=== PATIENT | male | born 1955 | race Caucasian/White ===

== ENCOUNTER → 2023-02-13 | Outpatient (CLI) | payer MEDICARE, SELFPAY ==
--- NOTE | 2023-02-13 07:33 | US_ITS ---
STUDY: ABDOMINAL ULTRASOUND - RIGHT UPPER QUADRANT REASON FOR VISIT: Male, 67 years old RUQ PAIN TECHNIQUE: Ultrasound evaluation of the right upper quadrant was performed with real-time and static billingsley-scale imaging. TECHNICAL QUALITY: Adequate. COMPARISON: None. FINDINGS: Liver: The liver measures 14.6 cm. There is increased echogenicity consistent with fatty infiltration. Focal fatty sparing is seen adjacent to the gallbladder fossa. The bile ducts are within normal limits. There is hepatic color flow. The direction of portal flow is hepatopetal. There is no demonstrated mass lesion. Gallbladder: Normal distended gallbladder. The gallbladder wall measures 1.6 mm. There is a negative sonographic Galeano''s sign. There is no pericholecystic fluid. There are no gallstones. Sludge is seen within the gallbladder lumen. Common Bile Duct (C.B.D.): The common bile duct measures 3.6 mm. Pancreas: Normal size of the head, body and tail of the pancreas. There is increased echogenicity of the pancreas. There is no demonstrated pancreatic mass or cyst. Right Kidney: Normal size of the right kidney. The right kidney measures 11.4 cm x 6.7 cm x 6.3 cm. Normal renal cortex. The right cortex measures 1.5 cm. There is no demonstrated renal mass or cyst. 2 right renal cysts are seen. The larger measures 1.4 cm x 1.5 cm x 1.5 cm in the upper pole. US/Abdomen Limited IMPRESSION: Fatty infiltration of the liver. Findings suggestive of 2 focal areas of focal fatty sparing in the region of the gallbladder fossa. There are 2 small right renal cysts. Electronically Signed: Enzo Collins MD at 14:17 EDT ,
[2023-02-13 08:24] LABS: Absolute Lymphocyte Count 1.07 X10^3/uL (0.83-4.51); Absolute Neutrophil Count 3.2 X10^3/uL (2.0-7.7); Basophil# 0.02 X10^3/uL; Basophil% 0.4 % (0-1); Eosinophil# 0.08 X10^3/uL; Eosinophils% 1.6 % (0-5); Hematocrit 43.7 % (40-54); Hemoglobin 13.8 g/dL (13.0-16.5); Lymphocyte # 1.07 X10^3/ul (0.83-4.51); Lymphocyte % 21.5 % (19-41); Mean Corp Hgb Conc 31.6 g/dL (32-36); Mean Corpuscular Hgb 29.7 pg (27.0-32.0); Mean Platelet Vol. 11.7 fl (6.2-12.0); Monocyte# 0.57 X10^3/uL; Monocyte% 11.5 % (0-10); NRBC Flagged by Analyzer 0 % (0-5); Neutrophil # 3.21 X10^3/uL (2.7-7.7); Neutrophil % 64.6 % (47-70); Platelet Count 216 K/mm3 (150-450); RBC Distribution Width CV 13.2 % (11.6-14.6); RBC Distribution Width SD 45.6 fl (35.1-43.9); Red Blood Count 4.65 M/mm3 (4.6-6.2)
[2023-02-13 08:58] LABS: ALB/GLOB Ratio 0.7 RATIO (0.9-2.4); AST(SGOT) 23 U/L (15-37); Alanine Aminotransfer ALT/SGPT 37 U/L (16-61); Albumin, Serum 3.3 g/dL (3.2-5.0); Alkaline Phosphatase 80 U/L (45-117); Anion Gap 3 (5-15); BUN 11 mg/dL (7-18); BUN/Creat Ratio 11.7 RATIO (10-20); Calcium,Total 9.4 mg/dL (8.5-10.1); Chloride 106 mmol/L (98-107); Creatinine, Serum 0.94 mg/dL (0.70-1.30); EST Glomerular Filtration Rate 86 mL/min (>60); Est Glom Filt Rate - Afr Amer 104 mL/min (>60); Globulin 4.9 g/dL (2.2-4.2); Glucose 97 mg/dL (74-106); Potassium 3.9 mmol/L (3.5-5.1); Protein, Total 8.2 g/dL (6.4-8.2); Sodium Level 138 mmol/L (136-145)
[2023-02-13 08:59] LABS: Hemoglobin A1c 5.8 % (3.8-5.6)
== END | disposition home or self-care (01) ==
PROVIDERS: PCP Physician Assistant Medical; Referring Provider Physician Assistant Medical; Visit Provider Physician Assistant Medical
DX: R10.11 Right upper quadrant pain (principal); F10.21 Alcohol dependence, in remission; E11.65 Type 2 diabetes mellitus with hyperglycemia
CPT/HCPCS: 36415; 76705; 80053; 83036; 85025

== ENCOUNTER → 2023-05-08 | Outpatient (CLI) | payer MEDICARE, SELFPAY ==
--- NOTE | 2023-05-08 13:09 | RAD_ITS ---
INDICATION: SOB/PLEURAL EFFUSION -- right decub EXAMINATION/TECHNIQUE: X-RAY - XR Chest 1 View COMPARISON: Previous of the same day FINDINGS: Right decubitus view of the chest was obtained. Small right pleural effusion is seen. No left pleural effusion. RAD/Special CXR (Obl/Decub/A/L) IMPRESSION: Small free flowing right pleural effusion. Electronically Signed: Kenny Hahn MD at 9:08 EST ,
--- NOTE | 2023-05-08 13:09 | RAD_ITS ---
INDICATION: SOB/PLEURAL EFFUSION EXAMINATION/TECHNIQUE: X-RAY - XR Chest 2 Views COMPARISON: No relevant prior comparison study available FINDINGS: LINES/DEVICES: None. LUNGS: No consolidation, edema or effusion. No pneumothorax. MEDIASTINUM AND CARDIOVASCULAR STRUCTURES: Normal cardiac silhouette. Slightly prominent right hilum could be exaggerated by rotation. Mild blunting of the right costophrenic angle. BONES AND SOFT TISSUES: No demonstrated acute osseous changes. RAD/Chest PA and Lateral IMPRESSION: 1. Slightly prominent right hilum probably exaggerated by rotation. Follow-up exam might be helpful. 2. Trace of right pleural effusion. Electronically Signed: Kenny Hahn MD at 9:04 EST ,
--- NOTE | 2023-05-08 13:21 | RAD_ITS ---
INDICATION: sob, pleural effusion -- left decub EXAMINATION/TECHNIQUE: X-RAY - XR Chest 1 View COMPARISON: Previous of the same date done earlier. FINDINGS: No left pleural effusion is seen. RAD/Special CXR (Obl/Decub/A/L) IMPRESSION: No left pleural effusion is seen. Electronically Signed: Kenny Hahn MD at 9:09 EST ,
== END | disposition home or self-care (01) ==
LOC: MTRAD 13:07
PROVIDERS: PCP Physician Assistant Medical; Referring Provider Internal Medicine Pulmonary Disease; Visit Provider Internal Medicine Pulmonary Disease
DX: R06.02 Shortness of breath (principal); J90 Pleural effusion, not elsewhere classified
CPT/HCPCS: 71046

== ENCOUNTER → 2023-05-28 | Outpatient (CLI) | payer MEDICARE, SELFPAY ==
--- NOTE | 2023-05-28 11:14 | US_ITS ---
STUDY: SUPERFICIAL ULTRASOUND - POSSIBLE THORACENTESIS. REASON FOR EXAM: Male, 68 years old. PE TECHNIQUE: A superficial ultrasound was performed with real-time and static billingsley-scale imaging. COMPARISON: None. FINDINGS: Not enough pleural effusion for safe thoracentesis. US/Chest IMPRESSION: Not enough pleural effusion for safe thoracentesis. Electronically Signed: Enzo Collins MD at 15:08 EST ,
== END | disposition home or self-care (01) ==
PROVIDERS: PCP Physician Assistant Medical; Referring Provider Internal Medicine Pulmonary Disease; Visit Provider Internal Medicine Pulmonary Disease
DX: J90 Pleural effusion, not elsewhere classified (principal)
CPT/HCPCS: 76604

== ENCOUNTER → 2023-07-14 | Outpatient (CLI) | payer MEDICARE, SELFPAY ==
--- OUTSIDE RECORDS SUMMARY | 2023-07-14 18:42 | XMS RPT_ITS | CCD ---
Author Name Unknown Address [address] [place] [address] Organization [facility] Care Team Providers Care Principal Associate Name Role Phone JT MYERS (OD) Unavailable Unavailable JT MYERS (OD) Unavailable Unavailable KAY MALAGON Unavailable Unavailable Cristhian Veronique B Unavailable Unavailable Isabel Jones Unavailable Unavailable Negaunee, Veronique Unavailable Unavailable Negaun[place], Veronique B Unavailable Unavailable Unavailable Veronique Morrow PA-C Primary Care Provider Nena Salinas MD Unavailable Cristhian, Ms. Veronique Rosenbaum Referring Unav ailable Cristhian, Ms. Veronique Ilsa Attending Unav ailable Negaunee, Ms. Veronique Ilsa Primary Care Unav ailable Negaunee, Ms. Veronique Ilsa Attending Unav ailable Negaunee, Ms. Veronique Ilsa Primary Care Unav ailable Cristhian, Ms. Veronique Ilsa Referring Unav ailable Negaunee, Ms. Veronique Ilsa Attending Unav ailable [place]un[place], Ms. Veronique Ilsa Primary Care Unav ailable Cristhian, Ms. Veronique Ilsa Attending Unav ailable [place], Ms. Veronique Ilsa Primary Care Unav ailable [place]un[place], Ms. Veronique Ilsa Referring Unav ailable Cristhian, Ms. Veronique Ilsa Attending Unav ailable [place], Ms. Veronique Ilsa Primary Care Unav ailable Negaun[place], Ms. Veronique Ilsa Referring Unav ailable Zak, Dr. Tim Mascorro Attending Dr. Tim Cisneros Admitting Unavailable Ms. Veronique Morrow Primary Care Unav ailable VERONIQUE MORROW Attending Unavailable VERONIQUE MORROW Primary Care Unavailable CRISTHIAN VERONIQUE B Attending Unavailable CRISTHIAN VERONIQUE B Primary Care Unavailable CRISTHIAN VERONIQUE B Attending Unavailable CRISTHIAN VERONIQUE B Primary Care Unavailable HESS JOSE GUADALUPE, DEVON FELICIANO Attending Unava ilable VERONIQUE MORROW B Referring Unavailable CRISTHIAN VERONIQUE B Primary Care Unavailable CRISTHIAN, VERONIQUE B Attending Unavailable CRISTHIAN VERONIQUE B Primary Care Unavailable HESS JOSE GUADALUPE, DEVON FELICIANO Attending Unava ilable VERONIQUE MORROW B Primary Care Unavailable VERONIQUE MORROW B Attending Unavailable CRISTHIAN VERONIQUE B Primary Care Unavailable CRISTHIAN VERONIQUE B Attending Unavailable CRISTHIAN VERONIQUE B Primary Care Unavailable MARVEL SALAS Attending Unavailable VERONIQUE MORROW B Referring Unavailable CRISTHIAN VERONIQUE B Primary Care Unavailable VERONIQUE MORROW B Attending Unavailable CRISTHIAN, VERONIQUE B Primary Care Unavailable CRISTHIAN, VERONIQUE B Attending Unavailable CRISTHIAN VERONIQUE B Primary Care Unavailable VERONIQUE MORROW Primary Care Unavaila MARVEL Meehan Referring Unavailable VERONIQUE MORROW Primary Care Unavaila ble VERONIQUE MORROW Admitting Unavaila ble CRISTHIAN VERONIQUE B Referring Unavailable CRISTHIAN, VERONIQUE B Primary Care Unavailable CRISTHIAN, VERONIQUE B Referring Unavailable CRISTHIAN, VERONIQUE B Primary Care Unavailable HESS JOSE GUADALUPE, DEVON FELICIANO Admitting Unava ilable HESS JOSE GUADALUPE, DEVON FELICIANO Attending Unava ilable CRISTHIAN VERONIQUE B Primary Care Unavailable CRISTHIAN, VERONIQUE B Referring Unavailable CRISTHIAN, VERONIQUE B Primary Care Unavailable Medications Current Medications Medication Drug Class(es) Dates Sig (Normalized) Sig (Original) [id number] 200 actuat albuterol 0.09 mg/actuat metered dose inhaler (13 sources) beta2-Adrenergic Agonist Start: 02-18-2023 End: 02-18-2024 take 2 puff(s) by inhalation every four hours for wheezing albuterol (Ventolin HFA) 90 mcg/actuation inhaler Indications: Acute cough Inhale 2 puffs every 4 hours if needed for wheezing or shortness of breath. 8 g 5 02/18/2023 02/18/2024 Active aspirin 81 mg chewable tablet (11 sources) Platelet Aggregation Inhibitor, Nonsteroidal Anti-inflammatory Drug Start: 03-18-2023 End: 2024 aspirin 81 mg chewable tablet Indications: Atherosclerosis Chew 1 tablet (81 mg) once daily. 30 tablet 11 03/18/2023 2024 Active atorvastatin 40 mg oral tablet (11 sources) HMG-CoA Reductase Inhibitor Start: 03-27-2023 take 1 tablet by mouth once daily atorvastatin (Lipitor) 40 mg tablet Indications: Atherosclerosis Take 1 tablet (40 mg) by mouth once daily. 90 tablet 3 03/27/2023 Active clobetasol propionate 0.0005 mg/mg topical ointment (17 sources) Corticosteroid Start: 05-14-2017 clobetasol (Temovate) 0.05 % ointment 1 Application 0 05/14/2017 Active Completed/Discontinued Medications Medication Drug Class(es) Dates Sig (Normalized) Sig (Original) amoxicillin 500 mg oral tablet (3 sources) Penicillin-class Antibacterial Start: 06-17-2019 End: 07-29-2022 take 1 tablet by mouth three times daily Amoxicillin 500 MG Oral Tablet TAKE 1 TABLET 3 times daily Quantity: 30 Refills: 0 Ordered: 17-Jun-2019 Veronique Morrow PA-C Start : 17-Jun-2019 End : 29-Jul-2022 Complete 120 actuat formoterol fumarate 0.0048 mg/actuat / glycopyrrolate 0.009 mg/actuat metered dose inhaler (5 sources) beta2-Adrenergic Agonist Start: 03-27-2023 End: 04-07-2023 glycopyrrolate-fo rmoteroL (Bevespi Aerosphere) 9-4.8 mcg HFA aerosol inhaler Indications: SOB (shortness of breath) Inhale 2 puffs 2 times a day. 10.7 g 1 03/27/2023 04/07/2023 Discontinued (Cost of medication) iohexol (OMNIPaque) 12 mg iodine/mL oral contrast 500 mL (2 sources) Start: 03-31-2023 End: 03-31-2023 iohexol (OMNIPaque) 12 mg iodine/mL oral contrast 500 mL iohexol (OMNIPaque) 350 mg iodine/mL solution 90 mL (4 sources) Start: 04-08-2023 End: 04-08-2023 iohexol (OMNIPaque) 350 mg iodine/mL solution 90 mL Problems Active Problems Problem Classification Problem Date Documented Date Episodic/Chronic Alcohol-related disorders (20 sources) Alcohol abuse; Translations: [H/O: alcoholism] Onset: 02-03-2023 02-03-2023 Chronic Chronic obstructive pulmonary disease and bronchiectasis (20 sources) Centriacinar emphysema; Translations: [Centrilobular emphysema] Onset: 03-27-2023 03-27-2023 Chronic Coronary atherosclerosis and other heart disease (2 sources) Atherosclerotic heart disease of [place] coronary artery without angina pectoris; Translations: [Atherosclerotic heart disease of [place] coronary artery without angina pectoris] Onset: 03-27-2023 Chronic Diabetes mellitus with complications (20 sources) Hyperglycemia due to type 2 diabetes mellitus; Translations: [Diabetes mellitus without mention of complication, type II or unspecified type, not stated as uncontrolled] Onset: 08-06-2022 09-17-2022 Chronic Diabetes mellitus without complication (9 sources) Type 2 diabetes mellitus; Translations: [Type 2 diabetes mellitus with hyperglycemia] 09-17-2022 Chronic Disorders of lipid metabolism (20 sources) Hyperlipidemia; Translations: [Mixed hyperlipidemia] Onset: 08-06-2022 09-17-2022 Chronic Diverticulosis and diverticulitis (20 sources) Diverticular disease; Translations: [Diverticulosis of colon (without mention of hemorrhage)] Onset: 08-06-2022 08-06-2022 Chronic Essential hypertension (5 sources) Essential hypertension; Translations: [Hypertensive disorder] Onset: 08-06-2022 Chronic Genitourinary symptoms and ill-defined conditions (5 sources) Microscopic hematuria; Translations: [Microscopic hematuria] Episodic Hypertension with complications and secondary hypertension (5 sources) Hypertension secondary to endocrine disorders; 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] Onset: 08-06-2022 Chronic Nonspecific chest pain (1 source) Other chest pain; Translations: [Other chest pain] Onset: 02-21-2023 Episodic Other and unspecified benign neoplasm (3 sources) Polyp of colon; Translations: [Polyp of colon] 09-17-2022 Episodic Other and unspecified benign neoplasm (10 sources) History of polyp of colon; Translations: [Personal history of colonic polyps] Resolved: 06-16-2019 09-05-2022 Episodic Other and unspecified benign neoplasm (1 source) Benign neoplasm of descending colon; Translations: [Benign neoplasm of descending colon] 09-17-2022 Episodic Other ear and sense organ disorders (17 sources) Decreased hearing ; Translations: [Unspecified hearing loss, bilateral] Onset: 09-17-2022 09-17-2022 Chronic Other inflammatory condition of skin (20 sources) Psoriasis; Translations: [Other psoriasis] Onset: 08-06-2022 08-06-2022 Chronic Other inflammatory condition of skin (20 sources) Rosacea; Translations: [Rosacea] Onset: 08-06-2022 08-06-2022 Chronic Other liver diseases (20 sources) Steatosis of liver; Translations: [Fatty (change of) liver, not elsewhere classified] Onset: 02-18-2023 02-18-2023 Chronic Other liver diseases (2 sources) Liver disease, unspecified; Translations: [Liver disease, unspecified] Onset: 05-30-2023 Chronic Other liver diseases (2 sources) Fatty (change of) liver, not elsewhere classified; Translations: [Fatty (change of) liver, not elsewhere classified] Onset: 02-19-2023 Chronic Other lower respiratory disease (1 source) Cough; Translations: [Acute cough] 02-18-2023 Episodic Other lower respiratory disease (3 sources) Dyspnea; Translations: [Shortness of breath] 03-31-2023 Episodic Other lower respiratory disease (11 sources) Nodule of lung; Translations: [Solitary pulmonary nodule] Onset: 04-15-2023 04-14-2023 Episodic Other lower respiratory disease (2 sources) Solitary pulmonary nodule; Translations: [Solitary pulmonary nodule] Onset: 04-15-2023 Episodic Other male genital disorders (3 sources) Impotence; Translations: [Erectile dysfunction] Chronic Other male genital disorders (20 sources) Male erectile dysfunction, unspecified; Translations: [Erectile dysfunction] Onset: 08-06-2022 08-06-2022 Chronic Other nervous system disorders (20 sources) Neuropathy; Translations: [Mononeuritis of unspecified site] Onset: 09-17-2022 09-17-2022 Chronic Other nervous system disorders (1 source) Other chronic pain; Translations: [Other chronic pain] Onset: 08-05-2022 Chronic Other nervous system disorders (2 sources) Polyneuropathy, unspecified; Translations: [Polyneuropathy, unspecified] Onset: 09-03-2022 Chronic Other non-traumatic joint disorders (2 sources) Knee pain; Translations: [Pain in right knee] Onset: 09-17-2022 09-17-2022 Episodic Other nutritional; endocrine; and metabolic disorders (4 sources) Obesity; Translations: [Other obesity due to excess calories] Onset: 09-17-2022 09-17-2022 Chronic Other nutritional; endocrine; and metabolic disorders (2 sources) Other obesity due to excess calories; Translations: [Other obesity due to excess calories] Onset: 02-03-2023 Chronic Other nutritional; endocrine; and metabolic disorders (2 sources) Body mass index (BMI) 30.0-30.9, adult; Translations: [Body mass index (BMI) 30.0-30.9, adult] Onset: 02-03-2023 Chronic Peripheral and visceral atherosclerosis (16 sources) Arteriosclerotic vascular disease; Translations: [Unspecified atherosclerosis] Onset: 03-18-2023 03-18-2023 Chronic Unclassified (3 sources) Acute cough; Translations: [Acute cough] Onset: 02-18-2023 Unclassified (1 source) Cough, unspecified; Translations: [Cough, unspecified] Onset: 02-21-2023 Past or Other Problems Problem Classification Problem Date Documented Date Episodic/Chronic Abdominal pain (20 sources) Right upper quadrant pain; Translations: [Right upper quadrant pain] Onset: 02-03-2023 02-03-2023 Episodic Allergic reactions (15 sources) Inflammatory dermatosis; Translations: [Dermatitis, unspecified] Onset: 06-11-2017 Resolved: 02-03-2023 02-03-2023 Episodic Biliary tract disease (13 sources) Biliary sludge; Translations: [Other specified diseases of gallbladder] Onset: 02-18-2023 02-18-2023 Episodic Disorders of teeth and jaw (20 sources) Dental caries; Translations: [Dental caries, unspecified] Onset: 08-06-2022 Resolved: 02-03-2023 08-06-2022 Episodic Diverticulosis and diverticulitis (1 source) Diverticulosis of colon; Translations: [Diverticular disease of colon] Malaise and fatigue (6 sources) Malaise and fatigue; Translations: [Other malaise and fatigue] Onset: 09-03-2022 Episodic Other and unspecified benign neoplasm (4 sources) Personal history of colonic polyps; Translations: [Personal history of colonic polyps] Onset: 09-05-2022 Episodic Other and unspecified benign neoplasm (1 source) Benign neoplasm of descending colon; Translations: [Benign neoplasm of descending colon] Onset: 09-05-2022 Episodic Other and unspecified benign neoplasm (1 source) Polyp of colon; Translations: [Polyp of colon] Onset: 09-05-2022 Episodic Other lower respiratory disease (6 sources) Shortness of breath; Translations: [Shortness of breath] Onset: 03-31-2023 Episodic Other non-traumatic joint disorders (20 sources) Pain in right knee; Translations: [Chronic pain of right knee] Onset: 08-05-2022 09-17-2022 Episodic Other nutritional; endocrine; and metabolic disorders (20 sources) Body mass index 25-29 - overweight; Translations: [Overweight] Onset: 09-17-2022 02-18-2023 Episodic Other screening for suspected conditions (not mental disorders or infectious disease) (17 sources) Patient encounter status; Translations: [Screening for malignant neoplasms of prostate] Onset: 12-31-2018 09-17-2022 Episodic Results Test Name Value Interpretation Reference Range Facil ity Vital Signs Date Time Vital Sign Value Performing Clinician Facility 04-28-2023 11:01-0500 Body height 167.6 cm Veronique Morrow PA-C Work Phone: [facility] 04-28-2023 11:01-0500 Body mass index (BMI) [Ratio] 29.21 kg/m2 Veronique Morrow PA-C Work Phone: [facility] 04-28-2023 11:01-0500 Body weight 82.1 kg eVronique Morrow PA-C Work Phone: [facility] 04-28-2023 11:01-0500 Diastolic blood pressure 69 mm[Hg] Veroniquejustin Zamudioall PA-C Work Phone: [facility] 04-28-2023 11:01-0500 Heart rate 61 /min Veronique Cristhian PA-C Work Phone: [facility] 04-28-2023 11:01-0500 SaO2% (BldA) [Mass fraction] 95 % Veroniquejustin Zamudioall PA-C Work Phone: [facility] 04-28-2023 11:01-0500 Systolic blood pressure 122 mm[Hg] Veroniquejustin Zamudioall PA-C Work Phone: [facility] 04-16-2023 10:20-0500 Body height 167.6 cm Veronique Cristhian PA-C Work Phone: [facility] 04-16-2023 10:20-0500 Body mass index (BMI) [Ratio] 28.89 kg/m2 Veroniquejustin Zamudioall PA-C Work Phone: [facility] 04-16-2023 10:20-0500 Body weight 81.19 kg Veronique Zamudioall PA-C Work Phone: [facility] 04-16-2023 10:20-0500 Diastolic blood pressure 72 mm[Hg] Veroniquejustin RendonNegaunee PA-C Work Phone: [facility] 04-16-2023 10:20-0500 Heart rate 61 /min Veroniquejustin Zamudioall PA-C Work Phone: [facility] 04-16-2023 10:20-0500 Systolic blood pressure 123 mm[Hg] Veronique Negaunee PA-C Work Phone: [facility] 04-15-2023 08:01-0500 Body mass index (BMI) [Ratio] 28.83 kg/m2 Marvel Salas DO Work Phone: [facility] 04-15-2023 08:01-0500 Body temperature 97.11 [degF] Marvel Salas DO Work Phone: [facility] 04-15-2023 08:01-0500 Body weight 81.01 kg Marvel Piasecki DO Work Phone: [facility] 04-15-2023 08:01-0500 Diastolic blood pressure 76 mm[Hg] Marvel Piasecki DO Work Phone: [facility] 04-15-2023 08:01-0500 Heart rate 57 /min Marvel Piasecki DO Work Phone: [facility] 04-15-2023 08:01-0500 SaO2% (BldA) [Mass fraction] 93 % Marvel Piasecki DO Work Phone: [facility] 04-15-2023 08:01-0500 Systolic blood pressure 124 mm[Hg] Marvel Piasecki DO Work Phone: [facility] 04-14-2023 13:43-0500 Body height 167.6 cm Veroniquejustin Zamudioall PA-C Work Phone: [facility] 04-14-2023 13:43-0500 Body mass index (BMI) [Ratio] 29.54 kg/m2 Veronique Negaunee PA-C Work Phone: [facility] 04-14-2023 13:43-0500 Body weight 83.01 kg Veroniquejustin Zamudioall PA-C Work Phone: [facility] 04-14-2023 13:43-0500 Diastolic blood pressure 71 mm[Hg] Veroniquejustin RendonNegaunee PA-C Work Phone: [facility] 04-14-2023 13:43-0500 Heart rate 75 /min Veronique Negaunee PA-C Work Phone: [facility] 04-14-2023 13:43-0500 Systolic blood pressure 119 mm[Hg] Veroniquejustin Zamudioall PA-C Work Phone: [facility] 04-03-2023 09:52-0400 Body height 167.6 cm Veronique Negaunee PA-C Work Phone: [facility] 04-03-2023 09:52-0400 Body mass index (BMI) [Ratio] 29.38 kg/m2 Veronique Negaunee PA-C Work Phone: [facility] 04-03-2023 09:52-0400 Body weight 82.56 kg Veronique Negaunee PA-C Work Phone: [facility] 04-03-2023 09:52-0400 Diastolic blood pressure 77 mm[Hg] Veronique Negaunee PA-C Work Phone: [facility] 04-03-2023 09:52-0400 Heart rate 52 /min Veronique Cristhian PA-C Work Phone: [facility] 04-03-2023 09:52-0400 Systolic blood pressure 134 mm[Hg] Veronique Negaunee PA-C Work Phone: [facility] 03-04-2023 08:52-0400 Body height 167.6 cm Veronique Cristhian PA-C Work Phone: [facility] 03-04-2023 08:52-0400 Body mass index (BMI) [Ratio] 29.54 kg/m2 Veronique Negaunee PA-C Work Phone: [facility] 03-04-2023 08:52-0400 Body weight 83.01 kg Veronique Negaunee PA-C Work Phone: [facility] 03-04-2023 08:52-0400 Diastolic blood pressure 73 mm[Hg] Veronique Negaunee PA-C Work Phone: [facility] 03-04-2023 08:52-0400 Heart rate 61 /min Veronique Negaunee PA-C Work Phone: [facility] 03-04-2023 08:52-0400 Systolic blood pressure 126 mm[Hg] Veronique Cristhian PA-C Work Phone: [facility] 02-18-2023 15:06-0400 Body height 167.6 cm Veronique Cristhian PA-C Work Phone: [facility] 02-18-2023 15:06-0400 Body mass index (BMI) [Ratio] 29.86 kg/m2 Veronique Cristhian PA-C Work Phone: [facility] 02-18-2023 15:06-0400 Body weight 83.92 kg Veronique Cristhian PA-C Work Phone: [facility] 02-18-2023 15:06-0400 Diastolic blood pressure 80 mm[Hg] Veronique Negaunee PA-C Work Phone: [facility] 02-18-2023 15:06-0400 Heart rate 72 /min Veronique Cristhian PA-C Work Phone: [facility] 02-18-2023 15:06-0400 Systolic blood pressure 140 mm[Hg] Veronique Negaunee PA-C Work Phone: [facility] 02-03-2023 12:29-0400 Body height 167.6 cm Veronique Negaunee PA-C Work Phone: [facility] 02-03-2023 12:29-0400 Body mass index (BMI) [Ratio] 30.67 kg/m2 Veronique Cristhian PA-C Work Phone: [facility] 02-03-2023 12:29-0400 Body weight 86.18 kg Veronique Cristhian PA-C Work Phone: [facility] 02-03-2023 12:29-0400 Diastolic blood pressure 83 mm[Hg] Veronique Cristhian PA-C Work Phone: [facility] 02-03-2023 12:29-0400 Heart rate 71 /min Veronique Cristhian PA-C Work Phone: [facility] 02-03-2023 12:29-0400 Systolic blood pressure 143 mm[Hg] Veroniquejustin Zamudioall PA-C Work Phone: [facility] 09-17-2022 10:41-0400 Body height 167.6 cm Veroniquejustin Zamudioall PA-C Work Phone: [facility] 09-17-2022 10:41-0400 Body mass index (BMI) [Ratio] 33.57 kg/m2 Veronique Cristhian PA-C Work Phone: [facility] 09-17-2022 10:41-0400 Body weight 94.35 kg Veronique Cristhian PA-C Work Phone: [facility] 09-17-2022 10:41-0400 Diastolic blood pressure 80 mm[Hg] Veronique Cristhian PA-C Work Phone: [facility] 09-17-2022 10:41-0400 Heart rate 72 /min Veronique Negaunee PA-C Work Phone: [facility] 09-17-2022 10:41-0400 SaO2% (BldA) [Mass fraction] 96 % Veronique Negaunee PA-C Work Phone: [facility] 09-17-2022 10:41-0400 Systolic blood pressure 136 mm[Hg] Veronique Negaunee PA-C Work Phone: [facility] 09-02-2022 15:06-0400 Body height 167.4 cm Tim Crespo MD Work Phone: [facility] 09-02-2022 15:06-0400 Body mass index (BMI) [Ratio] 32.94 kg/m2 Tim Crespo MD Work Phone: [facility] 09-02-2022 15:06-0400 Body weight 92.3 kg Tim Crespo MD Work Phone: [facility] 06-17-2019 12:50-0500 BMI (Body Mass Index) 32.28 kg/m2 Veronique Morrow [facility] Work Phone: 06-17-2019 12:50-0500 Body Temperature 97.6 [degF] Veronique Morrow [facility] Work Phone: 06-17-2019 12:50-0500 Body weight 90.72 kg Veronique Morrow [facility] Work Phone: 06-17-2019 12:50-0500 BP Diastolic 86 mm[Hg] Veronique Morrow [facility] Work Phone: 06-17-2019 12:50-0500 BP Systolic 124 mm[Hg] Veroniquejustin Morrow [facility] Work Phone: 06-17-2019 12:50-0500 BSA (Body Surface Area) 2 m2 Veronique Morrow [facility] Work Phone: 06-17-2019 12:50-0500 Height 167.64 cm Veroniquejustin Morrow [facility] Work Phone: 06-17-2019 12:50-0500 Pulse (Heart Rate) 64 /min Veronique Morrow [facility] Work Phone: Encounters Encounter Date Encounter Type Care Provider Facility Start: 05-30-2023 End: 06-03-2023 ambulatory VERONIQUE MORROW [facility] Start: 04-28-2023 End: 04-28-2023 ambulatory VERONIQUE Atwood CRISTHIAN [facility] Start: 04-28-2023 End: 04-28-2023 Office outpatient visit 25 minutes Veronique ANDERSONC Work Phone: [facility] Internal [facility] Procedures Date Procedure Procedure Detail Performing Clinician Start: 04-15-2023 AMB REFERRAL TO PULMONOLOGY VERONIQUE MORROW Start: 04-14-2023 Follow-up visit Follow-up VERONIQUE MORROW Start: 04-08-2023 CT CHEST W IV CONTRAST VERONIQUE MORROW Start: 04-08-2023 Ct thorax w/contrast material Veronique Rai Cristhian ABRAHAM Work Phone: Start: 03-31-2023 CT ABDOMEN PELVIS W IV CONTRAST VERONIQUE RENDONENHALL Start: 03-31-2023 PULMONARY FUNCTION TESTING VERONIQUE RENDONENHALL Start: 03-31-2023 Ct abdomen & pelvis w/contrast material Veronique Rai Cristhian ABRAHAM Work Phone: Start: 03-27-2023 DISCHARGE PATIENT DELORIS MORROW Start: 03-27-2023 TELEMETRY MONITORING RA ENRRIQUE MORROW Start: 03-27-2023 CARDIAC CATHETERIZAT ION - CORONARY VERONIQUE CRISTHIAN Start: 03-27-2023 Basic metabolic 2000 panel - Serum or Plasma VERONIQUE CRISTHIAN Start: 03-27-2023 CBC panel - Blood by Automated count VERONIQUE CRISTHIAN Start: 03-27-2023 PLACE IN OUTPATIENT/ HOSPITAL AMBULATORY SURGERY VERONIQUE CRISTHIAN Start: 03-18-2023 ECG 12-LEAD VERONIQUE AYDEE GAGE Start: 03-18-2023 AMB REFERRAL TO CARDIOLOGY VERONIQUE MORROW Start: 09-05-2022 SURGICAL PATHOLOGY RESULTS Tim Crespo MD Work Phone: Start: 09-05-2022 Colonoscopy stoma dx including collj spec spx Veronique Morrow PA-C Work Phone: Start: 09-05-2022 End: 09-05-2022 Colonoscopy Veronique Rai Cristhian Work Phone: Start: 06-17-2019 Comprehensive metabo lic 2000 panel Veronique Morrow Start: 06-17-2019 Hemoglobin glycosylated a1c Veronique Cristhian Start: 06-17-2019 Lipid panel Veronique Aydee vicente Start: 06-14-2019 Lipid 1996 panel - S anahi or Plasma Veronique Morrow PA-C Work Phone: Start: 12-31-2018 [object Object] Plan of Treatment Date Care Activity Detail Author Start: 09-05-2032 Screening for malignant neoplasm of colon [facility] Start: 10-07-2023 End: 10-07-2023 Patient encounter procedure 10/07/2023 10:15 AM EDT Office Visit [facility] [address] [place] [address] Devon Fleming MD [address] [place] [address] [facility] Start: 09-19-2023 Medicare Annual Wellness Visit Medicare Annual Wellness Visit (AWV) [facility] Start: 09-10-2023 End: 09-10-2023 Patient encounter procedure 09/10/2023 10:00 AM EDT Office Visit [facility] [address] [facility] [place] [id number] Veronique Morrow PA-C [address] [facility] [place] [address] [facility] Start: 09-04-2023 Urine screening for protein Diabetes: Urine Protein Screening [facility] Start: 09-02-2023 End: 03-04-2024 CBC W Auto Differential panel - Blood CBC and Auto Differential Lab Routine Hypertension associated with diabetes ([facility]) Type 2 diabetes mellitus with hyperglycemia, without long-term current use of insulin ([facility]) Expected: 09/02/2023 (Approximate), Expires: 03/04/2024 [facility] Work Phone: Immunizations Immunization Date Immunization Notes Care Provider Fa ciliandi 05-29-2022 Fluzone High-Dose Quadrivalent 0.7 ML Intramuscular Suspension Prefilled Syringe Veronique Morrow Work Phone: [facility] Work Phone: 05-29-2022 influenza, seasonal, injectable Veronique Morrow PA-C Work Phone: [facility] Work Phone: 05-29-2022 influenza virus vaccine, unspecified formulation Veronique Morrow PA-C Work Phone: [facility] Work Phone: Payers Date Payer Category Payer Medicare HUMANA MEDICARE HU[employer] GOLD CHOICE [id number] 2022-Present [address] [address] [place] [address] [id number] 2022 Private Health Insurance [employer] ARE HU[employer]NA CHOICECARE HU[employer]NA [id number] 2022-Present [address] [address] [place] [address] [id number] 2022 Private Health Insurance [id number] 1957 Unknown [id number] 2.16.840.1.143537.3.579. 2.356 1957 Unknown [id number] 2.16.840.1.839588.3.579. 2.9 1957 Unknown [id number] 2.16.840.1.669605.3.579. 2.1069 1957 Unknown [id number] 2.16.840.1.582290.3.579. 2.9 1957 Unknown [id number] 2.16.840.1.998056.3.579. 2.9 1957 Unknown [id number] 2.16.840.1.361727.3.579. 2.1069 1957 Unknown [id number] 2.16.840.1.810022.3.579. 2.1244 1957 Unknown [id number] 2.16.840.1.098360.3.579. 2.1243 1957 Unknown [id number] 2.16.840.1.794747.3.579. 2.1244 1957 Unknown [id number] 2.16.840.1.611658.3.579. 2.1243 1957 Unknown [id number] 2.16.840.1.045070.3.579. 2.1244 1957 Unknown [id number] 2.16.840.1.525326.3.579. 2.1244 1957 Unknown [id number] 2.16.840.1.863328.3.579. 2.1244 1957 Unknown [id number] 2.16.840.1.586226.3.579. 2.1244 1957 Unknown [id number] 2.16.840.1.800402.3.579. 2.1244 1957 Unknown [id number] 2.16.840.1.037468.3.579. 2.1244 1957 Unknown [id number] 2.16.840.1.489350.3.579. 2.1244 1957 Unknown [id number] 2.16.840.1.935058.3.579. 2.903 1957 Unknown [id number] 2.16.840.1.154738.3.579. 2.903 1957 Unknown [id number] 2.16.840.1.644006.3.579. 2.1243 1957 Unknown [id number] 2.16.840.1.199112.3.579. 2.1243 1957 Unknown [id number] 2.16.840.1.907879.3.579. 2.1243 1957 Unknown [id number] 2.16.840.1.552700.3.579. 2.1243 Unknown HU[employer]NA GOLD CHOICE Unknown [id number] Social History Date Type Detail Facility Start: 09-17-2022 End: 04-28-2023 Consumes alcohol weekly Consumes alcohol weekly [facility] Work Phone: Start: 09-17-2022 End: 03-04-2023 Tobacco smoking status NHIS Never smoked tobacco [facility] Start: 09-17-2022 End: 03-18-2023 Tobacco use and exposure Smokeless tobacco non-user [facility] Work Phone: Start: 09-17-2022 End: 02-03-2023 Alcohol intake Current drinker of alcohol (finding) [facility] Work Phone: Start: 09-17-2022 End: 04-28-2023 Tobacco use panel [facility] Work Phone: Start: 09-17-2022 Tobacco Comment DOES NOT SMOKE OR USE SMOKELESS BUT CHEWS NICOTINE GUM DAILY. [facility] Work Phone: Start: 09-17-2022 Alcohol [facility] Start: 1955 Sex Assigned At Not on file [facility] Work Phone: Start: 09-07-2022 End: 04-28-2023 Exposure to SARS-CoV-2 (event) Not sure [facility] Start: 02-18-2023 End: 03-27-2023 Alcohol intake Ex-drinker (finding) [facility] Work Phone: Start: 03-04-2023 Tobacco Comment STOPPED TAKING THE NICOTINE GUM [facility] Work Phone: Start: 03-18-2023 End: 04-07-2023 Tobacco smoking status NHIS Ex-smoker [facility] End: 06-09-2012 History of tobacco use Current smoker [facility] Work Phone: End: 06-09-2012 History of tobacco use Cigarette Smoker [facility] Work Phone: Start: 04-07-2023 Tobacco Comment STOPPED TAKING THE NICOTINE GUM 02/2023 [facility] Work Phone: Tobacco smoking status KYIS Tobacco smoking consumption unknown [facility] Work Phone: NEGATED: Highlighted row - - [facility] Work Phone: NEGATED: Highlighted rowStart: RADHAF History of tobacco use Passive smoker [facility] Work Phone: Functional Status Date Assessment Result Facility NEGATED: Highlighted row Functional performance Functional status health issues are not documented Disease [facility] Work Phone: Mental Status Date Assessment Result Facility NEGATED: Highlighted row Cognitive function [Interpretation] Cognitive status health issues are not documented Disease [facility] Work Phone: Clinical Notes 06-09-2019 to 04-28-2023 Veronique Morrow PA-C - 04/28/2023 11:00 AM Emilia Morrow PA-C - 04/16/2023 10:20 AM Tawana Salas DO - 04/15/2023 8:00 AM Emilia Morrow PA-C - 04/14/2023 1:40 PM EST Note Date & Type Note Facility 04-28-2023 History of Presen t illness Narrative Subjective Patient ID: Marvel Denis is a 68 y.o. male who presents for Follow-up (2 WK F/U AFTER SEEING SURGEON; NOT USING STILOTO INHALER PER PULM DOCTOR) HPI Pt was seen 02/03 and complained of RUQ pain x 3 weeks Aggravated with coughing and bending over No change with food Occasionally pain in either shoulders Pt still has gallbladder Concerns with son having cirrhosis Pt states he did quit drinking - was drinking on ave 3-4 day but cont to have the pain He had followed a special diet for his liver but no change in his symptoms Pain is getting worse Follow up visit noted CP - R side and difficult with taking a deep breath in addition to back pain Previously we discussed consider need for scopes, gen surgery referral, referral to hep, and pulm work up He was seen 03/27/23 and we discussed suspicion for pleurisy - started on medrol. [place] was done and referred for PFT and feno- pending. Consider CT chest. Bevespi and anora too exp but changed to stiolto but little relief - made symptoms worsen and symptoms resolved once he stopped the stioloto The steroid helped maybe 50% - declines wanting to repeat dose at this time PFT is indicative of mild obstructive airway dz - FENO - Wnl CT - spiculated nodular opacity R lower lobe . R pleural effusion, reticulonodular opacities -L lower lobe - infectious vs inflammatory - non specific- repeat in 3-6 mo but given these findings and his symptoms I have suggested referral to pulm via telephone call. He did follow with pulm 04/15/23and he has set for repeat CT in 3 mo but denied further work up or changes in the med at this time GI symptoms we discussed scopes, gen surgery referral or hep referral. We ordered CT abd pelvis for further eval given his concerns Fatty liver - again consider need for referral to hep with his history and symptoms Colonoscopy done august 2022- repeat in 3 years US abd done in [place] - no cholelithiasis but slight sludge noted Constipation -on and off - today we discussed metamucil daily and add on colace bid prn He did follow up with gen surgeon - Dr borrego and he feels like this is not gallbaldder related but more of the pulm issues He has recently seen the pulm dr salas and nothing further was done given his symptoms but he questions if maybe there was a misunderstanding of his symptoms. He would like referred to a diff pulm for second opinion. He states the surgeon seems to think he needs thorococentesis and that is the cause of his symptoms. He is currently set for repeat CT to be done jul - october this next year Cardiac calcium score - score of 730 + and referred to cardio. Heart cath done and was started on meds for preventative measures. He is concerned taking statin given the effects on the liver. R tonsillar mass/ lump x years Pt states he previously discussed this with his prior PCP and he said no concerns yet he denies any imaging done on this in the past Quick reference I do not see any imaging on this area in the past 5 years (this system or in our older system allscript which we started in 2018) Size of a marble - pt states no change in over 5 years Denies tenderness Suggest further imaging but would like to put on hold until cardio/pulm / GI issues further eval Med check hyperchol - on meds COPD - albuterol prn CAD - on asprin, statin and BB Diabetic Management DM - previously was managed with diet and ex Eye - has been a few year - advised to schedule a visit Pod - suspect neuropathy and advised to schedule a visit - declines at this time Discussed benefit of ACEI - declines at this time - will work on diet and ex Microalbumin urine - august 2022- WNL Preventative PSA - august 2022 - WNL colonocopy August 2022 tubular adenoma - repeat in 3 years Tobacco - Neg JAN 2023- quit for maybe 12 years - does use nicotine gum [place] - NEG Mar 2023 PHQ2 - Neg MAR 2023 Patient Active Problem List Diagnosis Acne rosacea DD (diverticular disease) Diverticular disease of colon Erectile dysfunction Hypertension associated with diabetes (CMS/HCC) Mixed hyperlipidemia Type 2 diabetes mellitus with hyperglycemia (CMS/HCC) Psoriasis Chronic pain of right knee Neuropathy Overweight (BMI 25.0-29.9) Decreased hearing of both ears Memory impairment History of alcohol dependence (CMS/HCC) Fatty liver Atherosclerosis Centrilobular emphysema (CMS/HCC) Pleural effusion on right Lung nodule Review of Systems Constitutional: Positive for fatigue. Negative for chills and fever. HENT: Negative for congestion, rhinorrhea, sinus pain, sore throat and tinnitus. Eyes: Negative for discharge, redness and visual disturbance. Respiratory: Positive for cough. Negative for chest tightness, shortness of breath and wheezing. Cardiovascular: Positive for chest pain. Negative for palpitations and leg swelling. Gastrointestinal: Positive for abdominal pain. Negative for constipation, diarrhea, nausea and vomiting. Endocrine: Negative for cold intolerance and heat intolerance. Genitourinary: Negative for flank pain, frequency and urgency. Musculoskeletal: Negative for back pain, gait problem and neck pain. Skin: Negative for rash and wound. Neurological: Negative for dizziness, tremors, syncope, numbness and headaches. Hematological: Does not bruise/bleed easily. Psychiatric/Behavioral: Negative for confusion, sleep disturbance and suicidal ideas. Past Medical History: Diagnosis Date Dermatitis, unspecified 06/11/2017 Encounter for screening for malignant neoplasm of prostate Screening PSA (prostate specific antigen) Immunization not carried out Other microscopic hematuria Other microscopic hematuria Personal history of colonic polyps History of colonic polyps Rash and other nonspecific skin eruption 06/11/2017 Right corneal abrasion 03/27/2017 Past Surgical History: Procedure Laterality Date CARDIAC CATHETERIZATION 03/27/2023 GELY SHI CARDIAC CATHETERIZATION N/A 03/27/2023 Procedure: Left Heart Cath; Surgeon: Devon Shi MD; Location: [facility]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; Service: Cardiovascular; Laterality: N/A; OTHER SURGICAL HISTORY 06/16/2019 Hernia repair OTHER SURGICAL HISTORY 06/16/2019 Colonoscopy Family History Problem Relation Name Age of Onset Breast cancer Mother Diabetes Father Other (CHIROSIS OF LIVER) Son Social History Tobacco Use Smoking status: Former Types: Cigarettes Quit date: 2012 Years since quittin.8 Passive exposure: Never Smokeless tobacco: Never Tobacco comments: STOPPED TAKING THE NICOTINE GUM 02/2023 Vaping Use Vaping Use: Never used Substance Use Topics Alcohol use: Not Currently Drug use: Never No Known Allergies Current Outpatient Medications Medication Sig Dispense Refill albuterol (Ventolin HFA) 90 mcg/actuation inhaler Inhale 2 puffs every 4 hours if needed for wheezing or shortness of breath. 8 g 5 aspirin 81 mg chewable tablet Chew 1 tablet (81 mg) once daily. (Patient taking differently: Chew 1 tablet (81 mg) once daily. Holds if taking Aleve) 30 tablet 11 atorvastatin (Lipitor) 40 mg tablet Take 1 tablet (40 mg) by mouth once daily. 90 tablet 3 clobetasol (Temovate) 0.05 % ointment 1 Application metoprolol succinate XL (Toprol-XL) 25 mg 24 hr tablet Take 1 tablet (25 mg) by mouth once daily. Do not crush or chew. 30 tablet 11 multivit-minerals/folic acid (ADULT ONE DAILY MULTIVITAMIN ORAL) Take 1 tablet by mouth once daily. naproxen sodium (Aleve) 220 mg capsule Take 2 capsules by mouth every 12 hours if needed. tiotropium-olodateroL (Stiolto Respimat) 2.5-2.5 mcg/actuation mist inhaler Inhale 2 Inhalations once daily. (Patient not taking: Reported on 04/28/2023) 4 g 5 No current facility-administered medications for this visit. Objective BP 122/69 Pulse 61 Ht 1.676 m (5' 6 ) Wt 82.1 kg (181 lb) SpO2 95% BMI 29.21 kg/m Physical Exam Vitals reviewed. Constitutional: Appearance: Normal appearance. HENT: Head: Normocephalic. Right Ear: External ear normal. Left Ear: External ear normal. Nose: Nose normal. No congestion or rhinorrhea. Mouth/Throat: Mouth: Mucous membranes are moist. Eyes: Extraocular Movements: Extraocular movements intact. Conjunctiva/sclera: Conjunctivae normal. Pupils: Pupils are equal, round, and reactive to light. Cardiovascular: Rate and Rhythm: Normal rate and regular rhythm. Pulses: Normal pulses. Pulmonary: Effort: Pulmonary effort is normal. Breath sounds: Normal breath sounds. Abdominal: General: Bowel sounds are normal. Palpations: Abdomen is soft. Tenderness: There is no abdominal tenderness. There is no right CVA tenderness or left CVA tenderness. Musculoskeletal: General: No tenderness. Normal range of motion. Cervical back: Normal range of motion and neck supple. No tenderness. Skin: General: Skin is warm and dry. Neurological: General: No focal deficit present. Mental Status: He is alert and oriented to person, place, and time. Psychiatric: Mood and Affect: Mood normal. Behavior: Behavior normal. Testing Reviewed CT on file Reviewed notes from his specialists Impression MDM 1) COMPLEXITY: 1 UNDIAGNOSED NEW PROBLEM WITH UNCERTAIN PROGNOSIS 2)DATA: TESTS INTERPRETED AND OR ORDERED, TOOK INDEPENDENT HISTORY OR RECORDS REVIEWED 3)RISK: MODERATE RISK DUE TO NATURE OF MEDICAL CONDITIONS/COMORBIDITY OR MEDICATIONS ORDERED OR SURGICAL OR PROCEDURE REFERRAL, . Reviewed labs and Testing on file Patient to follow diet low in cholesterol, fat, and sodium. Patient is advised to increase Exercise. Patient is recommended to lose weight. Reviewed Meds and discussed common side effects Continue as directed Pleural effusion and possible symptoms secondary to lungs - will refer to diff pulm for second opinion. He questions trying stiolto longer to see if back pain s.e. resolve or we discussed consider trial of diff inhaler- he will first discuss with pulm Again consider hep referral for a second opinion as well Patient is strongly advised to be compliant with recommendations. Return to Clinic sooner if needed. Patient denies further questions/concerns at this time Assessment/Plan Problem List Items Addressed This Visit ICD-10-CM Hypertension associated with diabetes (CMS/HCC) E11.59, I15.2 Type 2 diabetes mellitus with hyperglycemia (CMS/HCC) E11.65 Overweight (BMI 25.0-29.9) E66.3 Fatty liver K76.0 Centrilobular emphysema (CMS/HCC) J43.2 Relevant Orders Referral to Pulmonology Pleural effusion on right - Primary J90 Relevant Orders Referral to Pulmonology Lung nodule R91.1 Relevant Orders Referral to Pulmonology Other Visit Diagnoses Codes SOB (shortness of breath) R06.02 Relevant Orders Referral to Pulmonology RUQ abdominal pain R10.11 Relevant Orders Referral to Pulmonology FU as before Referral to pulm - would like second opinion - dr smith in [place] documented in this encounter [facility] Work Phone: 04-16-2023 History of Presen t illness Narrative Subjective Patient ID: Marvel Denis is a 68 y.o. male who presents for Follow-up (F/U FOR PULM APPT YESTERDAY) HPI Pt was seen 02/03 and complained of RUQ pain x 3 weeks Aggravated with coughing and bending over No change with food Occasionally pain in either shoulders Pt still has gallbladder Concerns with son having cirrhosis Pt states he did quit drinking - was drinking on ave 3-4 day but cont to have the pain He had followed a special diet for his liver but no change in his symptoms Pain is getting worse Follow up visit noted CP - R side and difficult with taking a deep breath in addition to back pain Previously we discussed consider need for scopes, gen surgery referral, referral to hep, and pulm work up He was seen 03/27/23 and we discussed suspicion for pleurisy - started on medrol. [place] was done and referred for PFT and feno- pending. Consider CT chest. Bevespi and anora too exp but changed to stiolto but little relief - made symptoms worsen and symptoms resolved once he stopped the stioloto The steroid helped maybe 50% - declines wanting to repeat dose at this time PFT is indicative of mild obstructive airway dz - FENO - Wnl CT - spiculated nodular opacity R lower lobe . R pleural effusion, reticulonodular opacities -L lower lobe - infectious vs inflammatory - non specific- repeat in 3-6 mo but given these findings and his symptoms I have suggested referral to pulm via telephone call. He did follow with pulm 04/15/23and he has set for repeat CT in 3 mo but denied further work up or changes in the med at this time GI symptoms we discussed scopes, gen surgery referral or hep referral. We ordered CT abd pelvis for further eval given his concerns Fatty liver - again consider need for referral to hep with his history and symptoms Colonoscopy done august 2022- repeat in 3 years [place] abd done in [place] - no cholelithiasis but slight sludge noted Constipation -on and off - today we discussed metamucil daily and add on colace bid prn Cardiac calcium score - score of 730 + and referred to cardio. Heart cath done and was started on meds for preventative measures. He is concerned taking statin given the effects on the liver. R tonsillar mass/ lump x years Pt states he previously discussed this with his prior PCP and he said no concerns yet he denies any imaging done on this in the past Quick reference I do not see any imaging on this area in the past 5 years (this system or in our older system allscript which we started in 2019) Size of a marble - pt states no change in over 5 years Denies tenderness Suggest further imaging but would like to put on hold until cardio/pulm / GI issues further eval Med check hyperchol - on meds COPD - albuterol prn CAD - on asprin, statin and BB Diabetic Management DM - previously was managed with diet and ex Eye - has been a few year - advised to schedule a visit Pod - suspect neuropathy and advised to schedule a visit - declines at this time Discussed benefit of ACEI - declines at this time - will work on diet and ex Microalbumin urine - august 2022- WNL Preventative PSA - august 2022 - WNL colonocopy August 2022 tubular adenoma - repeat in 3 years Tobacco - Neg JAN 2023- quit for maybe 12 years - does use nicotine gum [place] - NEG Mar 2023 PHQ2 - Neg MAR 2023 Constipation Patient Active Problem List Diagnosis Acne rosacea DD (diverticular disease) Diverticular disease of colon Erectile dysfunction Hypertension associated with diabetes (CMS/HCC) Mixed hyperlipidemia Type 2 diabetes mellitus with hyperglycemia (CMS/HCC) Psoriasis Chronic pain of right knee Neuropathy Overweight (BMI 25.0-29.9) Decreased hearing of both ears Memory impairment History of alcohol dependence (CMS/HCC) Fatty liver Atherosclerosis Centrilobular emphysema (CMS/HCC) Pleural effusion on right Lung nodule Review of Systems Constitutional: Positive for fatigue. Negative for chills and fever. HENT: Negative for congestion, rhinorrhea, sinus pain, sore throat and tinnitus. Eyes: Negative for discharge, redness and visual disturbance. Respiratory: Positive for cough and shortness of breath. Negative for chest tightness and wheezing. Cardiovascular: Positive for chest pain. Negative for palpitations and leg swelling. Gastrointestinal: Positive for abdominal pain and constipation. Negative for diarrhea, nausea and vomiting. Endocrine: Negative for cold intolerance and heat intolerance. Genitourinary: Negative for flank pain, frequency and urgency. Musculoskeletal: Positive for back pain. Negative for gait problem and neck pain. Skin: Negative for rash and wound. Neurological: Negative for dizziness, tremors, syncope, numbness and headaches. Hematological: Does not bruise/bleed easily. Psychiatric/Behavioral: Negative for confusion, sleep disturbance and suicidal ideas. Past Medical History: Diagnosis Date Dermatitis, unspecified 06/11/2017 Encounter for screening for malignant neoplasm of prostate Screening PSA (prostate specific antigen) Immunization not carried out Other microscopic hematuria Other microscopic hematuria Personal history of colonic polyps History of colonic polyps Rash and other nonspecific skin eruption 06/11/2017 Right corneal abrasion 03/27/2017 Past Surgical History: Procedure Laterality Date CARDIAC CATHETERIZATION 03/27/2023 GELY SHI CARDIAC CATHETERIZATION N/A 03/27/2023 Procedure: Left Heart Cath; Surgeon: Devon Shi MD; Location: [facility]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; Service: Cardiovascular; Laterality: N/A; OTHER SURGICAL HISTORY 06/16/2019 Hernia repair OTHER SURGICAL HISTORY 06/16/2019 Colonoscopy Family History Problem Relation Name Age of Onset Breast cancer Mother Diabetes Father Other (CHIROSIS OF LIVER) Son Social History Tobacco Use Smoking status: Former Types: Cigarettes Quit date: 2012 Years since quittin.8 Passive exposure: Never Smokeless tobacco: Never Tobacco comments: STOPPED TAKING THE NICOTINE GUM 02/2023 Vaping Use Vaping Use: Never used Substance Use Topics Alcohol use: Not Currently Drug use: Never No Known Allergies Current Outpatient Medications Medication Sig Dispense Refill albuterol (Ventolin HFA) 90 mcg/actuation inhaler Inhale 2 puffs every 4 hours if needed for wheezing or shortness of breath. 8 g 5 aspirin 81 mg chewable tablet Chew 1 tablet (81 mg) once daily. (Patient taking differently: Chew 1 tablet (81 mg) once daily. Holds if taking Aleve) 30 tablet 11 atorvastatin (Lipitor) 40 mg tablet Take 1 tablet (40 mg) by mouth once daily. 90 tablet 3 clobetasol (Temovate) 0.05 % ointment 1 Application metoprolol succinate XL (Toprol-XL) 25 mg 24 hr tablet Take 1 tablet (25 mg) by mouth once daily. Do not crush or chew. 30 tablet 11 multivit-minerals/folic acid (ADULT ONE DAILY MULTIVITAMIN ORAL) Take 1 tablet by mouth once daily. naproxen sodium (Aleve) 220 mg capsule Take 2 capsules by mouth every 12 hours if needed. tiotropium-olodateroL (Stiolto Respimat) 2.5-2.5 mcg/actuation mist inhaler Inhale 2 Inhalations once daily. 4 g 5 No current facility-administered medications for this visit. Objective BP 123/72 Pulse 61 Ht 1.676 m (5' 6 ) Wt 81.2 kg (179 lb) BMI 28.89 kg/m Physical Exam Vitals reviewed. Constitutional: Appearance: Normal appearance. He is obese. HENT: Head: Normocephalic. Right Ear: External ear normal. Left Ear: External ear normal. Nose: Nose normal. No congestion or rhinorrhea. Mouth/Throat: Mouth: Mucous membranes are moist. Eyes: Extraocular Movements: Extraocular movements intact. Conjunctiva/sclera: Conjunctivae normal. Pupils: Pupils are equal, round, and reactive to light. Cardiovascular: Rate and Rhythm: Normal rate and regular rhythm. Pulses: Normal pulses. Pulmonary: Effort: Pulmonary effort is normal. Breath sounds: Normal breath sounds. Abdominal: General: Bowel sounds are normal. Palpations: Abdomen is soft. Tenderness: There is abdominal tenderness. There is no right CVA tenderness or left CVA tenderness. Musculoskeletal: General: No tenderness. Normal range of motion. Cervical back: Normal range of motion and neck supple. No tenderness. Skin: General: Skin is warm and dry. Neurological: General: No focal deficit present. Mental Status: He is alert and oriented to person, place, and time. Psychiatric: Mood and Affect: Mood normal. Behavior: Behavior normal. Testing Reviewed multiple imaging completed and labs over the last few months in addition so notes with specialists Impression MDM 1) COMPLEXITY: 1 UNDIAGNOSED NEW PROBLEM WITH UNCERTAIN PROGNOSIS 2)DATA: TESTS INTERPRETED AND OR ORDERED, TOOK INDEPENDENT HISTORY OR RECORDS REVIEWED 3)RISK: MODERATE RISK DUE TO NATURE OF MEDICAL CONDITIONS/COMORBIDITY OR MEDICATIONS ORDERED OR SURGICAL OR PROCEDURE REFERRAL, . Reviewed labs and Testing on file Patient to follow diet low in cholesterol, fat, and sodium. Patient is advised to increase Exercise. Patient is recommended to lose weight. Reviewed Meds and discussed common side effects Continue as directed RUQ pain - given the work up he has had done, the fixated RUQ pain that worsens with food I suspect is either from gallbladder or liver etiology - given hx and PE will start referral to gen surgeon for further eval even tho the testing is not clear cut this being a gallbladder case Again consider hep referral as discussed I do still question some symptoms secondary to M/S issues with movement /bending and other pain secondary to pulm issues - COPD and pleural effusion - will cont to monitor Pt to cont with his specialists Patient is strongly advised to be compliant with recommendations. Return to Clinic sooner if needed. Patient denies further questions/concerns at this time Assessment/Plan Problem List Items Addressed This Visit ICD-10-CM Diverticular disease of colon K57.30 Hypertension associated with diabetes (CMS/HCC) E11.59, I15.2 Type 2 diabetes mellitus with hyperglycemia (CMS/HCC) E11.65 Overweight (BMI 25.0-29.9) E66.3 Fatty liver K76.0 Centrilobular emphysema (CMS/HCC) J43.2 Pleural effusion on right J90 Lung nodule R91.1 Other Visit Diagnoses Codes Gallbladder sludge - Primary K82.8 Relevant Orders Referral to General Surgery RUQ abdominal pain R10.11 Relevant Orders Referral to General Surgery FU as before in September Pt to call if needed sooner pending referral /visit with surgeon Referral to gen surgeon - dr borrego in [place] - RUQ pain - r/o acalculous cholecystitis - slight gallbladder sludge noted on US in [place] however other imaging - CT/HIDA scan done in [place] did not show concern for the gallbaldder documented in this encounter [facility] Work Phone: 04-15-2023 History of Presen t illness Narrative Subjective Patient ID: Marvel Denis is a 68 y.o. male who presents for Cough, Lung Nodule (Found on CT), and Chest Pain. HPI This is a 68-year-old male who was told that he had a nodule in his lung and that is why he was sent to our office. Patient did have a history of chest pain in the past but that resolved a month ago. He does have a cough in the past also which is not present and was nonproductive before. He denies any problems with his breathing. He denies any fevers or chills he reports a history of a fractured rib on the right side about 15 years ago. He reports that his chest pain resolved with a Medrol Dosepak. His chest x-ray from 02/21/2023 was clear and showed evidence of hyperinflation. His CT scan of the chest from 04/08/2023 did show an irregular infiltrate in the right lower lobe with nonspecific borders in most suggestive of an inflammatory process. There was also evidence of emphysematous changes in the upper lobes and calcified granulomas. There is a small right effusion which appears to be loculated. Review of the patient's chest x-ray from 02/21/2023 did not show these changes. Patient has a history of hypertension. He has had a history of abdominal hernia repair x3 the last one being in 1989 is also had tonsillectomy and adenoidectomy and a heart catheterization done. Family history is positive for father with insulin-dependent diabetes and a mother who from breast cancer. His siblings have no specific medical history. Patient does complain of some discomfort in the right side of the abdomen below the diaphragm which is noticeable when he coughs. Review of Systems Patient reports that he has lost about 30 pounds in weight by purposeful change in his diet. He has been told that he has some underlying fatty liver disease. He does tend to bruise easily and was started on a baby aspirin a day and medication for hyperlipidemia started by his dock associate recently who did his heart cath. Patient denies any significant respiratory problems at this time. Patient is no longer smoker and quit about 10 years ago and had smoked 1 pack/day for 30 years prior to that. He also admits to drinking 2-3 beers per day. Objective Physical Exam Oxygen saturation on room air today was 98 to 99%. HEENT he has a class IV airway and a retrognathic chin. Pulmonary, there is a slight decrease in the breath sounds in the lung bases. Upper lung shay were clear. Cardio, heart sounds were regular rate and rhythm. Abdomen, bowel sounds were heard in all quadrants. Extremities, no pretibial edema cyanosis or clubbing. Skin, no abnormal rashes or skin lesions were noted on the visible portions of his extremities. Psych, the patient is alert and oriented x3. Assessment/Plan Impressions: 1. Small right pleural effusion. 2. Small lung nodules that could also represent some mucoid secretions. 3. Emphysema. Patient reports that he did have Stiolto inhaler but when he use that it did not seem to make a difference with his breathing and he had some chest discomfort with that medication. Recommendations: 1. We will plan on doing a CT scan of his chest in about 3 months from his last study 2. Remain off the Stiolto inhaler. 3. Patient does have a scheduled appointment with gastroenterology to evaluate his abdominal pain. 4. I told him he could use the albuterol inhaler at 2 puffs 4 times daily as needed shortness of breath. This note was transcribed using the [employer] Dict[employer] system. There may be grammatical, punctuation, or verbiage errors that occur with voice recognition programs. documented in this encounter [facility] Work Phone: 04-14-2023 History of Presen t illness Narrative Subjective Patient ID: Marvel Denis is a 68 y.o. male who presents for Follow-up (3-6 WEEK F/U AFTER CT) HPI Testing Pt was seen 02/03 and complained of RUQ pain x 3 weeks Aggravated with coughing and bending over No change with food Occasionally pain in either shoulders Pt still has gallbladder Concerns with son having cirrhosis Pt states he did quit drinking - was drinking on ave 3-4 day but cont to have the pain He had followed a special diet for his liver but no change in his symptoms Pain is getting worse Now notes CP - R side and difficult with taking a deep breath in addition to back pain Previously we discussed consider need for scopes, gen surgery referral, referral to hep, and pulm work up He was seen 03/27/23 and we discussed suspicion for pleurisy - started on medrol. Dennis was done and referred for PFT and feno- pending. Consider CT chest. Bevespi and anora too exp but changed to stiolto but little relief - made symptoms worsen and symptoms resolved once he stopped the stioloto The steroid helped maybe 50% - declines wanting to repeat dose at this time PFT is indicative of mild obstructive airway dz - FENO - Wnl CT - spiculated nodular opacity R lower lobe . R pleural effusion, reticulonodular opacities -L lower lobe - infectious vs inflammatory - non specific- repeat in 3-6 mo but given these findings and his symptoms I have suggested referral to pulm via telephone call. He is set to see pulm tomorrow. GI symptoms we discussed scopes, gen surgery referral or hep referral. We ordered CT abd pelvis for further eval given his concerns Pleural effusion was noted and suggested CT chest Fatty liver - again consider need for referral to hep with his history and symptoms Constipation - denies concerns at this time - has since taken meds and doing well and states typically is not a prob Cardiac calcium score - score of 730 + and referred to cardio. Heart cath done and was started on meds for preventative measures. He is concerned taking statin given the effects on the liver. R tonsillar mass/ lump x years Pt states he previously discussed this with his prior PCP and he said no concerns yet he denies any imaging done on this in the past Quick reference I do not see any imaging on this area in the past 5 years (this system or in our older system allscript which we started in 2019) Size of a marble - pt states no change in over 5 years Denies tenderness Suggest further imaging but would like to put on hold until cardio/ GI issues further eval Med check hyperchol - at one time was on statin but stopped d/t evated LFT Diabetic Management DM - previously was managed with diet and ex Eye - has been a few year - advised to schedule a visit Pod - suspect neuropathy and advised to schedule a visit - declines at this time Discussed benefit of ACEI - declines at this time - will work on diet and ex Microalbumin urine - august 2022- WNL Preventative PSA - august 2022 - WNL colonocopy August 2022 tubular adenoma - repeat in 3 years Tobacco - Neg JAN 2023- quit for maybe 12 years - does use nicotine gum [place] - NEG Mar 2023 PHQ2 - Neg MAR 2023 Patient Active Problem List Diagnosis Acne rosacea DD (diverticular disease) Diverticular disease of colon Erectile dysfunction Hypertension associated with diabetes (CMS/HCC) Mixed hyperlipidemia Type 2 diabetes mellitus with hyperglycemia (CMS/HCC) Psoriasis Chronic pain of right knee Neuropathy Overweight (BMI 25.0-29.9) Decreased hearing of both ears Memory impairment History of alcohol dependence (CMS/HCC) Fatty liver Atherosclerosis Centrilobular emphysema (CMS/HCC) Review of Systems Constitutional: Positive for fatigue. Negative for chills and fever. HENT: Negative for congestion, rhinorrhea, sinus pain, sore throat and tinnitus. Eyes: Negative for discharge, redness and visual disturbance. Respiratory: Positive for cough, chest tightness and shortness of breath. Negative for wheezing. Cardiovascular: Positive for chest pain. Negative for palpitations and leg swelling. Gastrointestinal: Positive for abdominal pain and nausea. Negative for constipation, diarrhea and vomiting. Endocrine: Negative for cold intolerance and heat intolerance. Genitourinary: Negative for flank pain, frequency and urgency. Musculoskeletal: Negative for back pain, gait problem and neck pain. Skin: Negative for rash and wound. Neurological: Negative for dizziness, tremors, syncope, numbness and headaches. Hematological: Does not bruise/bleed easily. Psychiatric/Behavioral: Negative for confusion, sleep disturbance and suicidal ideas. Past Medical History: Diagnosis Date Dermatitis, unspecified 06/11/2017 Encounter for screening for malignant neoplasm of prostate Screening PSA (prostate specific antigen) Immunization not carried out Other microscopic hematuria Other microscopic hematuria Personal history of colonic polyps History of colonic polyps Rash and other nonspecific skin eruption 06/11/2017 Right corneal abrasion 03/27/2017 Past Surgical History: Procedure Laterality Date CARDIAC CATHETERIZATION 03/27/2023 GELY SHI CARDIAC CATHETERIZATION N/A 03/27/2023 Procedure: Left Heart Cath; Surgeon: Devon Shi MD; Location: [facility]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; Service: Cardiovascular; Laterality: N/A; OTHER SURGICAL HISTORY 06/16/2019 Hernia repair OTHER SURGICAL HISTORY 06/16/2019 Colonoscopy Family History Problem Relation Name Age of Onset Breast cancer Mother Diabetes Father Other (CHIROSIS OF LIVER) Son Social History Tobacco Use Smoking status: Former Types: Cigarettes Quit date: 2012 Years since quittin.8 Passive exposure: Never Smokeless tobacco: Never Tobacco comments: STOPPED TAKING THE NICOTINE GUM 02/2023 Vaping Use Vaping Use: Never used Substance Use Topics Alcohol use: Not Currently Drug use: Never No Known Allergies Current Outpatient Medications Medication Sig Dispense Refill albuterol (Ventolin HFA) 90 mcg/actuation inhaler Inhale 2 puffs every 4 hours if needed for wheezing or shortness of breath. 8 g 5 atorvastatin (Lipitor) 40 mg tablet Take 1 tablet (40 mg) by mouth once daily. 90 tablet 3 clobetasol (Temovate) 0.05 % ointment 1 Application metoprolol succinate XL (Toprol-XL) 25 mg 24 hr tablet Take 1 tablet (25 mg) by mouth once daily. Do not crush or chew. 30 tablet 11 multivit-minerals/folic acid (ADULT ONE DAILY MULTIVITAMIN ORAL) Take 1 tablet by mouth once daily. naproxen sodium (Aleve) 220 mg capsule Take 2 capsules by mouth every 12 hours if needed. tiotropium-olodateroL (Stiolto Respimat) 2.5-2.5 mcg/actuation mist inhaler Inhale 2 Inhalations once daily. 4 g 5 aspirin 81 mg chewable tablet Chew 1 tablet (81 mg) once daily. (Patient taking differently: Chew 1 tablet (81 mg) once daily. Holds if taking Aleve) 30 tablet 11 No current facility-administered medications for this visit. Objective BP 119/71 Pulse 75 Ht 1.676 m (5' 6 ) Wt 83 kg (183 lb) BMI 29.54 kg/m Physical Exam Vitals reviewed. Constitutional: Appearance: Normal appearance. HENT: Head: Normocephalic. Right Ear: External ear normal. Left Ear: External ear normal. Nose: Nose normal. No congestion or rhinorrhea. Mouth/Throat: Mouth: Mucous membranes are moist. Eyes: Extraocular Movements: Extraocular movements intact. Conjunctiva/sclera: Conjunctivae normal. Pupils: Pupils are equal, round, and reactive to light. Cardiovascular: Rate and Rhythm: Normal rate and regular rhythm. Pulses: Normal pulses. Pulmonary: Effort: Pulmonary effort is normal. Breath sounds: Normal breath sounds. Abdominal: General: Bowel sounds are normal. Palpations: Abdomen is soft. Tenderness: There is abdominal tenderness. There is no right CVA tenderness or left CVA tenderness. Musculoskeletal: General: No tenderness. Normal range of motion. Cervical back: Normal range of motion and neck supple. No tenderness. Skin: General: Skin is warm and dry. Neurological: General: No focal deficit present. Mental Status: He is alert and oriented to person, place, and time. Psychiatric: Mood and Affect: Mood normal. Behavior: Behavior normal. Testing CT chest IMPRESSION: Spiculated nodular opacity in the right lower lobe which is nonspecific and may relate to an infectious or inflammatory process but will require follow-up as an underlying neoplasm can not be excluded. Small right-sided pleural effusion which appears multiloculated/septated. Nonspecific patchy ground-glass opacities in the right lower lobe. Reticulonodular opacities in the left lower lobe which suggest an infectious or inflammatory bronchiolitis. Numerous nodules along the right major and minor fissures. At minimum, a follow-up CT is recommended in 3-6 months for re-evaluation. Impression MDM 1) COMPLEXITY: 1 UNDIAGNOSED NEW PROBLEM WITH UNCERTAIN PROGNOSIS 2)DATA: TESTS INTERPRETED AND OR ORDERED, TOOK INDEPENDENT HISTORY OR RECORDS REVIEWED 3)RISK: MODERATE RISK DUE TO NATURE OF MEDICAL CONDITIONS/COMORBIDITY OR MEDICATIONS ORDERED OR SURGICAL OR PROCEDURE REFERRAL, . Reviewed labs and Testing on file Patient to follow diet low in cholesterol, fat, and sodium. Patient is advised to increase Exercise. Patient is recommended to lose weight. Reviewed Meds and discussed common side effects Continue as directed Lung findings and pain - he was referred to pulm and visit is set for tomorrow. Discussed he at least needs repeat CT 3-6 mo but given his symptoms explained pulm may do additional work up sooner Gallbladder sludge on some imaging - again consider referral to gen surgeon Fatty liver - again consider referral to hep Pending his appointment with pulm pt to call if he would like to further pursue the other etiologies as well Stiolto - worsened symptoms - cont off inhaler and further discuss with pulm Patient is strongly advised to be compliant with recommendations. Return to Clinic sooner if needed. Patient denies further questions/concerns at this time Assessment/Plan Problem List Items Addressed This Visit ICD-10-CM Hypertension associated with diabetes (CMS/HCC) E11.59, I15.2 Overweight (BMI 25.0-29.9) E66.3 Fatty liver K76.0 Centrilobular emphysema (CMS/HCC) J43.2 Other Visit Diagnoses Codes Pleural effusion on right - Primary J90 Lung nodule R91.1 RUQ abdominal pain R10.11 Gallbladder sludge K82.8 FU in 2-6 weeks with GI/chest pain check documented in this encounter [facility] Work Phone: 04-03-2023 History of Presen t illness Narrative Subjective Patient ID: Marvel Denis is a 68 y.o. male who presents for Follow-up (F/U WITH CT AND BREATHING TESTS) HPI Testing Pt was seen 02/03 and complained of RUQ pain x 3 weeks Aggravated with coughing and bending over No change with food Occasionally pain in either shoulders Pt still has gallbladder Concerns with son having cirrhosis Pt states he did quit drinking - was drinking on ave 3-4 day but cont to have the pain He had followed a special diet for his liver but no change in his symptoms Pain is getting worse Now notes CP - R side and difficult with taking a deep breath in addition to back pain Previously we discussed consider need for scopes, gen surgery referral, referral to hep, and pulm work up He was seen 03/27/23 and we discussed suspicion for pleurisy - started on medrol. Dennis was done and referred for PFT and feno- pending. Consider CT chest. He was started on bevespi was too exp so will change to diff inhaler and pt to call if too exp again The steroid helped maybe 50% - declines wanting to repeat dose at this time GI symptoms we discussed scopes, gen surgery referral or hep referral. We ordered CT abd pelvis for further eval given his concerns Pleural effusion was noted and suggested CT chest Fatty liver - again consider need for referral to hep with his history and symptoms Constipation - denies concerns at this time - has since taken meds and doing well and states typically is not a prob Cardiac calcium score - score of 730 + and referred to cardio. Heart cath done and was started on meds for preventative measures. He is concerned taking statin given the effects on the liver. He is noting Pain L forearm since heart cath - 03/27/23- follow up visit set with cardio on mon R tonsillar mass/ lump x years Pt states he previously discussed this with his prior PCP and he said no concerns yet he denies any imaging done on this in the past Quick reference I do not see any imaging on this area in the past 5 years (this system or in our older system allscript which we started in 2019) Size of a marble - pt states no change in over 5 years Denies tenderness Suggest further imaging but would like to put on hold until cardio/ GI issues further eval Med check hyperchol - at one time was on statin but stopped d/t evated LFT Diabetic Management DM - previously was managed with diet and ex Eye - has been a few year - advised to schedule a visit Pod - suspect neuropathy and advised to schedule a visit - declines at this time Discussed benefit of ACEI - declines at this time - will work on diet and ex Microalbumin urine - august 2022- WNL Preventative PSA - august 2022 - WNL colonocopy August 2022 tubular adenoma - repeat in 3 years Tobacco - Neg JAN 2023- quit for maybe 12 years - does use nicotine gum [place] - NEG Mar 2023 PHQ2 - Neg MAR 2023 Patient Active Problem List Diagnosis Acne rosacea DD (diverticular disease) Diverticular disease of colon Erectile dysfunction Hypertension associated with diabetes (CMS/HCC) Mixed hyperlipidemia Type 2 diabetes mellitus with hyperglycemia (CMS/HCC) Psoriasis Chronic pain of right knee Neuropathy Overweight (BMI 25.0-29.9) Decreased hearing of both ears Memory impairment History of alcohol dependence (CMS/HCC) Fatty liver Atherosclerosis Centrilobular emphysema (CMS/HCC) Review of Systems Constitutional: Positive for fatigue. Negative for chills and fever. HENT: Negative for congestion, rhinorrhea, sinus pain, sore throat and tinnitus. Eyes: Negative for discharge, redness and visual disturbance. Respiratory: Negative for cough, chest tightness, shortness of breath and wheezing. Cardiovascular: Positive for chest pain. Negative for palpitations and leg swelling. Gastrointestinal: Positive for abdominal distention and abdominal pain. Negative for constipation, diarrhea, nausea and vomiting. Endocrine: Negative for cold intolerance and heat intolerance. Genitourinary: Negative for flank pain, frequency and urgency. Musculoskeletal: Positive for arthralgias. Negative for back pain, gait problem and neck pain. Skin: Negative for rash and wound. Neurological: Negative for dizziness, tremors, syncope, numbness and headaches. Hematological: Does not bruise/bleed easily. Psychiatric/Behavioral: Negative for confusion, sleep disturbance and suicidal ideas. Past Medical History: Diagnosis Date Dermatitis, unspecified 06/11/2017 Encounter for screening for malignant neoplasm of prostate Screening PSA (prostate specific antigen) Immunization not carried out Other microscopic hematuria Other microscopic hematuria Personal history of colonic polyps History of colonic polyps Rash and other nonspecific skin eruption 06/11/2017 Right corneal abrasion 03/27/2017 Past Surgical History: Procedure Laterality Date CARDIAC CATHETERIZATION 03/27/2023 [facility] SHI CARDIAC CATHETERIZATION N/A 03/27/2023 Procedure: Left Heart Cath; Surgeon: Devon Shi MD; Location: [facility]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; Service: Cardiovascular; Laterality: N/A; OTHER SURGICAL HISTORY 06/16/2019 Hernia repair OTHER SURGICAL HISTORY 06/16/2019 Colonoscopy Family History Problem Relation Name Age of Onset Breast cancer Mother Diabetes Father Other (CHIROSIS OF LIVER) Son Social History Tobacco Use Smoking status: Former Types: Cigarettes Smokeless tobacco: Never Tobacco comments: STOPPED TAKING THE NICOTINE GUM Vaping Use Vaping Use: Never used Substance Use Topics Alcohol use: Not Currently Drug use: Never No Known Allergies Current Outpatient Medications Medication Sig Dispense Refill albuterol (Ventolin HFA) 90 mcg/actuation inhaler Inhale 2 puffs every 4 hours if needed for wheezing or shortness of breath. 8 g 5 ammonium lactate (Amlactin) 12 % cream 1 Application aspirin 81 mg chewable tablet Chew 1 tablet (81 mg) once daily. 30 tablet 11 atorvastatin (Lipitor) 40 mg tablet Take 1 tablet (40 mg) by mouth once daily. 90 tablet 3 clobetasol (Temovate) 0.05 % ointment 1 Application glycopyrrolate-formoteroL (Bevespi Aerosphere) 9-4.8 mcg HFA aerosol inhaler Inhale 2 puffs 2 times a day. 10.7 g 1 metoprolol succinate XL (Toprol-XL) 25 mg 24 hr tablet Take 1 tablet (25 mg) by mouth once daily. Do not crush or chew. 30 tablet 11 multivit-minerals/folic acid (ADULT ONE DAILY MULTIVITAMIN ORAL) Take 1 tablet by mouth once daily. No current facility-administered medications for this visit. Objective BP 134/77 Pulse 52 Ht 1.676 m (5' 6 ) Wt 82.6 kg (182 lb) BMI 29.38 kg/m Physical Exam Vitals reviewed. Constitutional: Appearance: Normal appearance. HENT: Head: Normocephalic. Right Ear: External ear normal. Left Ear: External ear normal. Nose: Nose normal. No congestion or rhinorrhea. Mouth/Throat: Mouth: Mucous membranes are moist. Eyes: Extraocular Movements: Extraocular movements intact. Conjunctiva/sclera: Conjunctivae normal. Pupils: Pupils are equal, round, and reactive to light. Cardiovascular: Rate and Rhythm: Normal rate and regular rhythm. Pulses: Normal pulses. Pulmonary: Effort: Pulmonary effort is normal. Breath sounds: Normal breath sounds. Chest: Chest wall: Tenderness present. Abdominal: General: Bowel sounds are normal. Palpations: Abdomen is soft. Tenderness: There is abdominal tenderness. There is no right CVA tenderness or left CVA tenderness. Comments: RUQ tenderness Musculoskeletal: General: Tenderness present. Normal range of motion. Cervical back: Normal range of motion and neck supple. No tenderness. Comments: R mid back tenderness /pain R forearm pain Skin: General: Skin is warm and dry. Neurological: General: No focal deficit present. Mental Status: He is alert and oriented to person, place, and time. Psychiatric: Mood and Affect: Mood normal. Behavior: Behavior normal. Testing Reviewed tests/labs on file recently Impression MDM 1) COMPLEXITY: 1 UNDIAGNOSED NEW PROBLEM WITH UNCERTAIN PROGNOSIS 2)DATA: TESTS INTERPRETED AND OR ORDERED, TOOK INDEPENDENT HISTORY OR RECORDS REVIEWED 3)RISK: MODERATE RISK DUE TO NATURE OF MEDICAL CONDITIONS/COMORBIDITY OR MEDICATIONS ORDERED OR SURGICAL OR PROCEDURE REFERRAL, . Reviewed labs and Testing on file Patient to follow diet low in cholesterol, fat, and sodium. Patient is advised to increase Exercise. Patient is recommended to lose weight. Reviewed Meds and discussed common side effects Continue as directed I am still concerned of possible further liver etiology or pulm issues. He has been hesitant to travel far away for further work up He is agreeable to CT chest and consider pulm referral PFT - pending Will try new inhaler - call if too exp Patient is strongly advised to be compliant with recommendations. Return to Clinic sooner if needed. Patient denies further questions/concerns at this time Assessment/Plan Problem List Items Addressed This Visit ICD-10-CM Diverticular disease of colon K57.30 Hypertension associated with diabetes (CMS/HCC) E11.59, I15.2 Type 2 diabetes mellitus with hyperglycemia (CMS/HCC) E11.65 Overweight (BMI 25.0-29.9) E66.3 Fatty liver K76.0 Centrilobular emphysema (CMS/HCC) J43.2 Relevant Medications umeclidinium-vilanteroL (Anoro Ellipta) 62.5-25 mcg/actuation blister with device Other Relevant Orders CT chest w IV contrast Other Visit Diagnoses Codes Pleural effusion on right - Primary J90 Relevant Orders CT chest w IV contrast Pleurisy R09.1 RUQ abdominal pain R10.11 Gallbladder sludge K82.8 FU in 3-[address] chest with contrast - R pleural effusion, suspected COPD/emphysema, CP, RUQ pain r/o malignancy Appointment with cardio on mon - please make sure he has his phone number so he can call him today given some pain in the R arm - mid forearm since heart cath Over 45 min was spent with patient reviewing his tests, updating his history, completing physical exam and discussing the most likely etiologies and further work up of the cause of his symptoms documented in this encounter [facility] Work Phone: 03-04-2023 History of Presen t illness Narrative Subjective Patient ID: Marvel Denis is a 67 y.o. male who presents for Follow-up (F/U ON CARDIAC CALCIUM SCORE TEST AND SCAN/PT HAS NOT SEEN THE CARDIO SPECIALIST YET AND HAS QUESTIONS ON IF HE CAN DO PROJECTS AT HOME STILL OR WAIT.) HPI Testing - Labs - US RUQ - fatty liver, sludge seen within the gallbaldder -HIDA - WNL Pt was seen 02/03 and complained of RUQ pain x 3 weeks Aggravated with coughing and bending over No change with food Occasionally pain in either shoulders Pt still has gallbladder Concerns with son having cirrhosis Pt states he did quit drinking - was drinking on ave 3-4 day but cont to have the pain He had followed a special diet for his liver but no change in his symptoms Cardiac calcium score - score of 730 + and referred to cardio via phone for further eval but wanted to be seen to discuss in person first He was given rescue inhaler to see if this helps with the occasional pain in the RUQ radiating to his shoulder - - no change in symptoms R tonsillar mass/ lump x years Pt states he previously discussed this with his prior PCP and he said no concerns yet he denies any imaging done on this in the past Quick reference I do not see any imaging on this area in the past 5 years (this system or in our older system allscript which we started in 2019) Size of a marble - pt states no change in over 5 years Denies tenderness Suggest further imaging but would like to put on hold until cardio/ GI issues further eval Med check hyperchol - at one time was on statin but stopped d/t evated LFT Diabetic Management DM - previously was managed with diet and ex Eye - has been a few year - advised to schedule a visit Pod - suspect neuropathy and advised to schedule a visit - declines at this time Discussed benefit of statin and ACEI - declines at this time - will work on diet and ex Microalbumin urine - august 2022- WNL Preventative PSA - august 2022 - WNL colonocopy August 2022 tubular adenoma - repeat in 3 years Tobacco - Neg JAN 2023- quit for maybe 12 years - does use nicotine gum [place] - NEG FEB 2023 PHQ2 - Neg FEB 2023 Patient Active Problem List Diagnosis Acne rosacea DD (diverticular disease) Diverticular disease of colon Erectile dysfunction Hypertension associated with diabetes (CMS/HCC) Mixed hyperlipidemia Type 2 diabetes mellitus with hyperglycemia (CMS/HCC) Psoriasis Chronic pain of right knee Neuropathy Overweight (BMI 25.0-29.9) Decreased hearing of both ears Memory impairment History of alcohol dependence (CMS/HCC) Fatty liver Review of Systems Constitutional: Positive for fatigue. Negative for chills and fever. HENT: Negative for congestion, rhinorrhea, sinus pain, sore throat and tinnitus. Eyes: Negative for discharge, redness and visual disturbance. Respiratory: Negative for cough, chest tightness, shortness of breath and wheezing. Cardiovascular: Negative for chest pain, palpitations and leg swelling. Gastrointestinal: Positive for abdominal pain. Negative for constipation, diarrhea, nausea and vomiting. Endocrine: Negative for cold intolerance and heat intolerance. Genitourinary: Negative for flank pain, frequency and urgency. Musculoskeletal: Negative for back pain, gait problem and neck pain. Skin: Negative for rash and wound. Neurological: Negative for dizziness, tremors, syncope, numbness and headaches. Hematological: Does not bruise/bleed easily. Psychiatric/Behavioral: Negative for confusion, sleep disturbance and suicidal ideas. Past Medical History: Diagnosis Date Dermatitis, unspecified 06/11/2017 Encounter for screening for malignant neoplasm of prostate Screening PSA (prostate specific antigen) Immunization not carried out Other microscopic hematuria Other microscopic hematuria Personal history of colonic polyps History of colonic polyps Rash and other nonspecific skin eruption 06/11/2017 Right corneal abrasion 03/27/2017 Past Surgical History: Procedure Laterality Date OTHER SURGICAL HISTORY 06/16/2019 Hernia repair OTHER SURGICAL HISTORY 06/16/2019 Colonoscopy Family History Problem Relation Name Age of Onset Breast cancer Mother Diabetes Father Other (CHIROSIS OF LIVER) Son Social History Tobacco Use Smoking status: Never Smokeless tobacco: Never Tobacco comments: STOPPED TAKING THE NICOTINE GUM Vaping Use Vaping Use: Never used Substance Use Topics Alcohol use: Not Currently Comment: SOMETIMES Drug use: Never No Known Allergies Current Outpatient Medications Medication Sig Dispense Refill albuterol (Ventolin HFA) 90 mcg/actuation inhaler Inhale 2 puffs every 4 hours if needed for wheezing or shortness of breath. 8 g 5 ammonium lactate (Amlactin) 12 % cream 1 Application clobetasol (Temovate) 0.05 % ointment 1 Application Fluzone HighDose Quad 22-23 PF syringe multivit-minerals/folic acid (ADULT ONE DAILY MULTIVITAMIN ORAL) Take 1 tablet by mouth once daily. predniSONE (Deltasone) 20 mg tablet 1 Tablet nicotine polacrilex (Nicorette) 4 mg gum Chew 1 each (4 mg) if needed for smoking cessation. No current facility-administered medications for this visit. Objective BP 126/73 Pulse 61 Ht 1.676 m (5' 6 ) Wt 83 kg (183 lb) BMI 29.54 kg/m Physical Exam Vitals reviewed. Constitutional: Appearance: Normal appearance. He is obese. HENT: Head: Normocephalic. Right Ear: External ear normal. Left Ear: External ear normal. Nose: Nose normal. No congestion or rhinorrhea. Mouth/Throat: Mouth: Mucous membranes are moist. Eyes: Extraocular Movements: Extraocular movements intact. Conjunctiva/sclera: Conjunctivae normal. Pupils: Pupils are equal, round, and reactive to light. Cardiovascular: Rate and Rhythm: Normal rate and regular rhythm. Pulses: Normal pulses. Pulmonary: Effort: Pulmonary effort is normal. Breath sounds: Normal breath sounds. Abdominal: General: Bowel sounds are normal. Palpations: Abdomen is soft. Tenderness: There is no abdominal tenderness. There is no right CVA tenderness or left CVA tenderness. Musculoskeletal: General: No tenderness. Normal range of motion. Cervical back: Normal range of motion and neck supple. No tenderness. Skin: General: Skin is warm and dry. Neurological: General: No focal deficit present. Mental Status: He is alert and oriented to person, place, and time. Psychiatric: Mood and Affect: Mood normal. Behavior: Behavior normal. Testing Reviewed cardiac calcium score HIDA Impression MDM 1) COMPLEXITY: 1 UNDIAGNOSED NEW PROBLEM WITH UNCERTAIN PROGNOSIS 2)DATA: TESTS INTERPRETED AND OR ORDERED, TOOK INDEPENDENT HISTORY OR RECORDS REVIEWED 3)RISK: MODERATE RISK DUE TO NATURE OF MEDICAL CONDITIONS/COMORBIDITY OR MEDICATIONS ORDERED OR SURGICAL OR PROCEDURE REFERRAL, . Reviewed labs and Testing on file Patient to follow diet low in cholesterol, fat, and sodium. Patient is advised to increase Exercise. Patient is recommended to lose weight. Reviewed Meds and discussed common side effects Continue as directed Will refer to cardio GI symptoms - consider need for scopes, consider gen surgery referral second opinion, consider referral to hep for further eval given fatty liver and fam hx cirrhosis Suggest further pulm work up Suggest further tonsilar /neck mass work up Patient is strongly advised to be compliant with recommendations. Return to Clinic sooner if needed. Patient denies further questions/concerns at this time Assessment/Plan Problem List Items Addressed This Visit ICD-10-CM Hypertension associated with diabetes (CMS/HCC) E11.59, I15.2 Relevant Orders Referral to Cardiology Albumin , Urine Random CBC and Auto Differential Comprehensive Metabolic Panel Hemoglobin A1C Lipid Panel Vitamin B12 Magnesium Type 2 diabetes mellitus with hyperglycemia (CMS/HCC) E11.65 Relevant Orders Albumin , Urine Random CBC and Auto Differential Comprehensive Metabolic Panel Hemoglobin A1C Lipid Panel Vitamin B12 Magnesium Overweight (BMI 25.0-29.9) E66.3 Fatty liver K76.0 Other Visit Diagnoses Codes Abnormal screening cardiac CT - Primary R93.1 Relevant Orders Referral to Cardiology Screening PSA (prostate specific antigen) Z12.5 Relevant Orders Prostate Specific Antigen, Screen RUQ abdominal pain R10.11 FU 1-2 mo with cardio/ GI check Referral to cardio - dr ahn - abnorm cardiac ca score - suspect need for heart cath FU end of with initial medicare with labs at [facility] fasting and med check documented in this encounter [facility] Work Phone: 02-18-2023 History of Presen t illness Narrative Subjective Patient ID: Marvel Denis is a 67 y.o. male who presents for Follow-up (FOLLOW UP ON TESTING AND [facility]S/PT STATES HE DID HAVE HIS US DONE AT [place] BUT NOT HIS CT DONE BECAUSE THEY COULDN'T GET HIM IN UNTIL MARCH.) HPI Testing at [place] - Labs - cardiac calcium score - did not have done - US RUQ - fatty liver, sludge seen within the gallbaldder Pt was seen 02/03 and complained of RUQ pain x 3 weeks Aggravated with coughing and bending over No change with food Occasionally pain in either shoulders Pt still has gallbladder Concerns with son having cirrhosis Pt states he did quit drinking - was drinking on ave 3-4 day but cont to have the pain R tonsillar mass/ lump x years Pt states he previously discussed this with his prior PCP and he said no concerns yet he denies any imaging done on this in the past Quick reference I do not see any imaging on this area in the past 5 years (this system or in our older system allscript which we started in 2018) Size of a marble - pt states no change in over 5 years Denies tenderness Med check hyperchol - at one time was on statin but stopped d/t evated LFT Diabetic Management DM - previously was managed with diet and ex Eye - has been a few year - advised to schedule a visit Pod - suspect neuropathy and advised to schedule a visit - declines at this time Discussed benefit of statin and ACEI - declines at this time - will work on diet and ex Microalbumin urine - august 2022- WNL R knee pain Injury summer falls 2021 pt states squatted on the knees working on the washing machine his knee popped which happens often. knee pain did flare up pretty bad for a few mo but has improved with time pain is now only when he goes up and down the steps pt states he has to lead with his left foot and come down with his L foot initially it was swollen - inferior patella and used a brace and but denied instability pt took aleve on and off but currently is not needing anything anymore he is just concerned with the limitation that is seen when using stairs Xray ordered but states not done d/t cost - denies anything further at this time - 95% norm - weak but doing well per patient memory concerns pt has noticed prob for a few years but feels like it is getting worse pt states short term memory concerns pt granddaughter lived with her for 4 years and states he really has to stop and remember her name. states his biggest struggle is peoples names pt thinks grandmother may have had alzheimers but was older and never severe 6CIT score of 0 - September 2022 sleeping concerns neuropathy in the feet does well with melatonin but questions the foot prob - arch to toes numbness and is concerned with taking melatonin given some of his memory concerns - again discussed pod referral. I do question DM neuropathy, alcohol neuropathy, idiopathic neuropathy - in gen labs are approp Preventative PSA - august 2022 - WNL colonocopy August 2022 tubular adenoma - repeat in 3 years Tobacco - Neg JAN 2023- quit for maybe 12 years - does use nicotine gum [place] - pos - may 2022 - tripped - known neuropathy - denies concerns PHQ2 - Neg September 2022 Patient Active Problem List Diagnosis Acne rosacea DD (diverticular disease) Diverticular disease of colon Erectile dysfunction Hypertension associated with diabetes (CMS/HCC) Mixed hyperlipidemia Type 2 diabetes mellitus with hyperglycemia (CMS/HCC) Psoriasis Chronic pain of right knee Neuropathy Class 1 obesity due to excess calories with serious comorbidity and body mass index (BMI) of 30.0 to 30.9 in adult Decreased hearing of both ears Memory impairment History of alcohol dependence (CMS/HCC) Review of Systems Constitutional: Positive for fatigue. Negative for chills and fever. HENT: Negative for congestion, rhinorrhea, sinus pain, sore throat and tinnitus. Eyes: Negative for discharge, redness and visual disturbance. Respiratory: Negative for cough, chest tightness, shortness of breath and wheezing. Cardiovascular: Negative for chest pain, palpitations and leg swelling. Gastrointestinal: Positive for abdominal pain and nausea. Negative for constipation, diarrhea and vomiting. Endocrine: Negative for cold intolerance and heat intolerance. Genitourinary: Negative for flank pain, frequency and urgency. Musculoskeletal: Positive for arthralgias. Negative for back pain, gait problem and neck pain. Skin: Negative for rash and wound. Neurological: Negative for dizziness, tremors, syncope, numbness and headaches. Hematological: Does not bruise/bleed easily. Psychiatric/Behavioral: Negative for confusion, sleep disturbance and suicidal ideas. Past Medical History: Diagnosis Date Dermatitis, unspecified 06/11/2017 Encounter for screening for malignant neoplasm of prostate Screening PSA (prostate specific antigen) Other microscopic hematuria Other microscopic hematuria Personal history of colonic polyps History of colonic polyps Rash and other nonspecific skin eruption 06/11/2017 Right corneal abrasion 03/27/2017 Past Surgical History: Procedure Laterality Date OTHER SURGICAL HISTORY 06/16/2019 Hernia repair OTHER SURGICAL HISTORY 06/16/2019 Colonoscopy Family History Problem Relation Name Age of Onset Breast cancer Mother Diabetes Father Other (CHIROSIS OF LIVER) Son Social History Tobacco Use Smoking status: Never Smokeless tobacco: Never Tobacco comments: DOES NOT SMOKE OR USE SMOKELESS BUT CHEWS NICOTINE GUM DAILY. Vaping Use Vaping Use: Never used Substance Use Topics Alcohol use: Not Currently Comment: SOMETIMES Drug use: Never No Known Allergies Current Outpatient Medications Medication Sig Dispense Refill ammonium lactate (Amlactin) 12 % cream 1 Application clobetasol (Temovate) 0.05 % ointment 1 Application multivit-minerals/folic acid (ADULT ONE DAILY MULTIVITAMIN ORAL) Take 1 tablet by mouth once daily. nicotine polacrilex (Nicorette) 4 mg gum Chew 1 each (4 mg) if needed for smoking cessation. Fluzone HighDose Quad 22-23 PF syringe predniSONE (Deltasone) 20 mg tablet 1 Tablet No current facility-administered medications for this visit. Objective BP 140/80 Pulse 72 Ht 1.676 m (5' 6 ) Wt 83.9 kg (185 lb) BMI 29.86 kg/m Physical Exam Vitals reviewed. Constitutional: Appearance: Normal appearance. HENT: Head: Normocephalic. Right Ear: External ear normal. Left Ear: External ear normal. Nose: Nose normal. No congestion or rhinorrhea. Mouth/Throat: Mouth: Mucous membranes are moist. Eyes: Extraocular Movements: Extraocular movements intact. Conjunctiva/sclera: Conjunctivae normal. Pupils: Pupils are equal, round, and reactive to light. Cardiovascular: Rate and Rhythm: Normal rate and regular rhythm. Pulses: Normal pulses. Pulmonary: Effort: Pulmonary effort is normal. Breath sounds: Normal breath sounds. Abdominal: General: Bowel sounds are normal. Palpations: Abdomen is soft. Tenderness: There is abdominal tenderness. There is no right CVA tenderness or left CVA tenderness. Musculoskeletal: General: Tenderness present. Normal range of motion. Cervical back: Normal range of motion and neck supple. No tenderness. Skin: General: Skin is warm and dry. Neurological: General: No focal deficit present. Mental Status: He is alert and oriented to person, place, and time. Psychiatric: Mood and Affect: Mood normal. Behavior: Behavior normal. Testing CBC- Wnl Hgba1c 5.8* CMP - glucose 97 - rest approp US abd - fatty liver - findings suggestive of 2 focal areas of focal fatty sparing in the region of the gallbladder fossa - 2 renal cysts Impression MDM 1) COMPLEXITY: 1 UNDIAGNOSED NEW PROBLEM WITH UNCERTAIN PROGNOSIS 2)DATA: TESTS INTERPRETED AND OR ORDERED, TOOK INDEPENDENT HISTORY OR RECORDS REVIEWED 3)RISK: MODERATE RISK DUE TO NATURE OF MEDICAL CONDITIONS/COMORBIDITY OR MEDICATIONS ORDERED OR SURGICAL OR PROCEDURE REFERRAL, . Reviewed labs and Testing on file Patient to follow diet low in cholesterol, fat, and sodium. Patient is advised to increase Exercise. Patient is recommended to lose weight. Reviewed Meds and discussed common side effects Continue as directed I still question gallbladder etiology - set up HIDA and consider gen surgeon referral Discussed we may want to refer to hep as well given fam hx and fatty liver - will monitor pending HIDA findings Will set up cardiac calcium score local Given the burning lung pain - consider this is secondary to GI issues or pulm etiology like asthma - start on rescue PRN and CXR Patient is strongly advised to be compliant with recommendations. Return to Clinic sooner if needed. Patient denies further questions/concerns at this time Assessment/Plan Problem List Items Addressed This Visit Hypertension associated with diabetes (CMS/HCC) Type 2 diabetes mellitus with hyperglycemia (CMS/HCC) Overweight (BMI 25.0-29.9) History of alcohol dependence (CMS/HCC) Fatty liver Other Visit Diagnoses RUQ abdominal pain - Primary Relevant Orders NM hepatobiliary Gallbladder sludge Relevant Orders NM hepatobiliary Acute cough Relevant Medications albuterol (Ventolin HFA) 90 mcg/actuation inhaler Other Relevant Orders XR chest 2 views FU after testing Set up HIDA RUQ pain and sludge in gallbladder - pt would like to check with insurance on location before we schedule Pt is ok if we set up cardiac calcium score in [place] - order placed 02/03 documented in this encounter [facility] Work Phone: 02-03-2023 History of Presen t illness Narrative Subjective Patient ID: Marvel Denis is a 67 y.o. male who presents for LIVER (PAIN RIGHT BELOW RIBS ON RIGHT SIDE IN KIDNEY AREA SHOULDERS AND LUNGS X 3 WEEKS) HPI RUQ pain x 3 weeks Aggravated with coughing and bending over No change with food Occasionally pain in either shoulders Pt still has gallbladder Concerns with son having cirrhosis Pt states he did quit drinking - was drinking on ave 3-4 day but states quit about 9 days but cont to have the pain R tonsillar mass/ lump x years Pt states he previously discussed this with his prior PCP and he said no concerns yet he denies any imaging done on this in the past Quick reference I do not see any imaging on this area in the past 5 years (this system or in our older system allscript which we started in 2019) Size of a marble - pt states no change in over 5 years Denies tenderness Med check hyperchol - at one time was on statin but stopped d/t evated LFT Diabetic Management DM - previously was managed with diet and ex Eye - has been a few year - advised to schedule a visit Pod - suspect neuropathy and advised to schedule a visit - declines at this time Discussed benefit of statin and ACEI - declines at this time - will work on diet and ex Microalbumin urine - august 2022- WNL R knee pain Injury summer falls 2021 pt states squatted on the knees working on the washing machine his knee popped which happens often. knee pain did flare up pretty bad for a few mo but has improved with time pain is now only when he goes up and down the steps pt states he has to lead with his left foot and come down with his L foot initially it was swollen - inferior patella and used a brace and but denied instability pt took aleve on and off but currently is not needing anything anymore he is just concerned with the limitation that is seen when using stairs Xray ordered but states not done d/t cost - denies anything further at this time - 95% norm - weak but doing well per patient memory concerns pt has noticed prob for a few years but feels like it is getting worse pt states short term memory concerns pt granddaughter lived with her for 4 years and states he really has to stop and remember her name. states his biggest struggle is peoples names pt thinks grandmother may have had alzheimers but was older and never severe 6CIT score of 0 - September 2022 sleeping concerns neuropathy in the feet does well with melatonin but questions the foot prob - arch to toes numbness and is concerned with taking melatonin given some of his memory concerns - again discussed pod referral. I do question DM neuropathy, alcohol neuropathy, idiopathic neuropathy - in gen labs are approp Preventative PSA - august 2022 - WNL colonocopy August 2022 tubular adenoma - repeat in 3 years Tobacco - Neg JAN 2023- quit for maybe 12 years - does use nicotine gum [place] - pos - may 2022 - tripped - known neuropathy - denies concerns PHQ2 - Neg September 2022 Patient Active Problem List Diagnosis Acne rosacea DD (diverticular disease) Dental decay Diverticular disease of colon Erectile dysfunction Hypertension associated with diabetes (CMS/HCC) Mixed hyperlipidemia Type 2 diabetes mellitus with hyperglycemia (CMS/HCC) Sore throat Psoriasis Chronic pain of right knee Neuropathy Class 1 obesity due to excess calories with serious comorbidity and body mass index (BMI) of 33.0 to 33.9 in adult Decreased hearing of both ears Memory impairment Review of Systems Constitutional: Positive for fatigue. Negative for chills and fever. HENT: Negative for congestion, rhinorrhea, sinus pain, sore throat and tinnitus. Eyes: Negative for discharge, redness and visual disturbance. Respiratory: Negative for cough, chest tightness, shortness of breath and wheezing. Cardiovascular: Negative for chest pain, palpitations and leg swelling. Gastrointestinal: Positive for abdominal distention and abdominal pain. Negative for constipation, diarrhea, nausea and vomiting. Endocrine: Negative for cold intolerance and heat intolerance. Genitourinary: Negative for flank pain, frequency and urgency. Musculoskeletal: Positive for arthralgias. Negative for back pain, gait problem and neck pain. Skin: Negative for rash and wound. Neurological: Negative for dizziness, tremors, syncope, numbness and headaches. Hematological: Does not bruise/bleed easily. Psychiatric/Behavioral: Negative for confusion, sleep disturbance and suicidal ideas. Past Medical History: Diagnosis Date Dermatitis, unspecified 06/11/2017 Encounter for screening for malignant neoplasm of prostate Screening PSA (prostate specific antigen) Other microscopic hematuria Other microscopic hematuria Personal history of colonic polyps History of colonic polyps Rash and other nonspecific skin eruption 06/11/2017 Right corneal abrasion 03/27/2017 Past Surgical History: Procedure Laterality Date OTHER SURGICAL HISTORY 06/16/2019 Hernia repair OTHER SURGICAL HISTORY 06/16/2019 Colonoscopy Family History Problem Relation Name Age of Onset Breast cancer Mother Diabetes Father Other (CHIROSIS OF LIVER) Son Social History Tobacco Use Smoking status: Never Smokeless tobacco: Never Tobacco comments: DOES NOT SMOKE OR USE SMOKELESS BUT CHEWS NICOTINE GUM DAILY. Vaping Use Vaping Use: Never used Substance Use Topics Alcohol use: Yes Comment: SOMETIMES Drug use: Never No Known Allergies Current Outpatient Medications Medication Sig Dispense Refill clobetasol (Temovate) 0.05 % ointment 1 Application Fluzone HighDose Quad 22-23 PF syringe multivit-minerals/folic acid (ADULT ONE DAILY MULTIVITAMIN ORAL) Take 1 tablet by mouth once daily. nicotine polacrilex (Nicorette) 4 mg gum Chew 1 each (4 mg) if needed for smoking cessation. ammonium lactate (Amlactin) 12 % cream 1 Application predniSONE (Deltasone) 20 mg tablet 1 Tablet No current facility-administered medications for this visit. Objective BP 143/83 (BP Location: Right arm, Patient Position: Sitting) Pulse 71 Ht 1.676 m (5' 6 ) Wt 86.2 kg (190 lb) BMI 30.67 kg/m Physical Exam Vitals reviewed. Constitutional: Appearance: Normal appearance. He is obese. HENT: Head: Normocephalic. Right Ear: External ear normal. Left Ear: External ear normal. Nose: Nose normal. No congestion or rhinorrhea. Mouth/Throat: Mouth: Mucous membranes are moist. Eyes: Extraocular Movements: Extraocular movements intact. Conjunctiva/sclera: Conjunctivae normal. Pupils: Pupils are equal, round, and reactive to light. Cardiovascular: Rate and Rhythm: Normal rate and regular rhythm. Pulses: Normal pulses. Pulmonary: Effort: Pulmonary effort is normal. Breath sounds: Normal breath sounds. Abdominal: General: Bowel sounds are normal. There is distension. Palpations: Abdomen is soft. Tenderness: There is abdominal tenderness. There is no right CVA tenderness or left CVA tenderness. Comments: Mild RUQ tenderness but no daugherty sign present Musculoskeletal: General: No tenderness. Normal range of motion. Cervical back: Normal range of motion and neck supple. No tenderness. Comments: NEG tenderness at time of visit Good ROM with shoulders Skin: General: Skin is warm and dry. Neurological: General: No focal deficit present. Mental Status: He is alert and oriented to person, place, and time. Psychiatric: Mood and Affect: Mood normal. Behavior: Behavior normal. Testing Reviewed labs Reviewed old testing on file Impression MDM 1) COMPLEXITY: 1 UNDIAGNOSED NEW PROBLEM WITH UNCERTAIN PROGNOSIS 2)DATA: TESTS INTERPRETED AND OR ORDERED, TOOK INDEPENDENT HISTORY OR RECORDS REVIEWED 3)RISK: MODERATE RISK DUE TO NATURE OF MEDICAL CONDITIONS/COMORBIDITY OR MEDICATIONS ORDERED OR SURGICAL OR PROCEDURE REFERRAL, . Reviewed labs and Testing on file Patient to follow diet low in cholesterol, fat, and sodium. Patient is advised to increase Exercise. Patient is recommended to lose weight. Reviewed Meds and discussed common side effects Continue as directed RUQ pain - less likely cholelithiasis given no change with food - I am more concerned for liver etiology given his hx of alcohol use and son's history - will set up US but discussed consider need for additional imaging or referral Will get updated labs Will set up cardiac calcium score for gen screening as well Advised to cont to abstain from alcohol Will repeat labs at his next visit and hopefully improved as he is working on diet changes Patient is strongly advised to be compliant with recommendations. Return to Clinic sooner if needed. Patient denies further questions/concerns at this time Assessment/Plan Problem List Items Addressed This Visit Hypertension associated with diabetes (CMS/HCC) Relevant Orders CT cardiac scoring wo IV contrast Mixed hyperlipidemia Type 2 diabetes mellitus with hyperglycemia (CMS/HCC) Relevant Orders CBC and Auto Differential Comprehensive Metabolic Panel Hemoglobin A1C CT cardiac scoring wo IV contrast Class 1 obesity due to excess calories with serious comorbidity and body mass index (BMI) of 30.0 to 30.9 in adult History of alcohol dependence (CMS/HCC) Other Visit Diagnoses RUQ abdominal pain - Primary Relevant Orders US abdomen complete FU in few weeks with labs at [facility] abd RUQ pain - hx of alcohol - r.o chirrhosis, liver mass, cholelithiasis Cardiac calcium score documented in this encounter [facility] Work Phone: 11-24-2022 Note Patient Name: Marvel Denis Procedure Date: 09/05/2022 9:05 AM Date of : 1955 Admit Type: Outpatient Site: [facility] 1 Ethnicity: Not or Race: White Attending MD: Tim Crespo MD, [id number] Procedure: Colonoscopy Indications: High risk colon cancer surveillance: Personal history of colonic polyps Providers: Tim Crespo MD (Doctor), Eveline Rod RN (Nurse), Mony Do RN (Nurse) Referring: Veronique Morrow PA-C Medicines: Midazolam 2.5 mg IV, Meperidine 50 mg IV Complications: No immediate complications. Procedure: Pre-Anesthesia Assessment: - Prior to the procedure, a History and Physical was performed, and patient medications and allergies were reviewed. The patient's tolerance of previous anesthesia was also reviewed. The risks and benefits of the procedure and the sedation options and risks were discussed with the patient. All questions were answered, and informed consent was obtained. Prior Anticoagulants: The patient has taken no anticoagulant or antiplatelet agents. ASA Grade Assessment: II - A patient with mild systemic disease. After reviewing the risks and benefits, the patient was deemed in satisfactory condition to undergo the procedure. After I obtained informed consent, the scope was passed under direct vision. Throughout the procedure, the patient's blood pressure, pulse, and oxygen saturations were monitored continuously. The pediatric colonoscope was introduced through the anus and advanced to the cecum, identified by the appendiceal orifice, IC valve and transillumination. The colonoscopy was performed without difficulty. The patient tolerated the procedure well. The quality of the bowel preparation was good. The ileocecal valve, appendiceal orifice, and rectum were photographed. The entire colon was examined. Findings: An 8 mm polyp was found in the sigmoid colon. The polyp was sessile. The polyp was removed with a hot snare. Resection and retrieval were complete. Three semi-pedunculated polyps were found in the descending colon. The polyps were 7 to 10 mm in size. These polyps were removed with a hot snare. Resection and retrieval were complete. Multiple small and large-mouthed diverticula were found in the sigmoid colon. The exam was otherwise without abnormality on direct and retroflexion views. Moderate Sedation: Moderate (conscious) sedation was administered by the nurse and supervised by the endoscopist. The following parameters were monitored: oxygen saturation, heart rate, blood pressure, and response to care. Total physician intraservice time was 20 minutes. Estimated Blood Loss: Estimated blood loss: none. Impression: - One 8 mm polyp in the sigmoid colon, removed with a hot snare. Resected and retrieved. - Three 7 to 10 mm polyps in the descending colon, removed with a hot snare. Resected and retrieved. - Diverticulosis in the sigmoid colon. - The examination was otherwise normal on direct and retroflexion views. Recommendation: - Patient has a contact number available for emergencies. The signs and symptoms of potential delayed complications were discussed with the patient. Return to normal activities tomorrow. Written discharge instructions were provided to the patient. - Resume previous diet. - Continue present medications. - Await pathology results. - Repeat colonoscopy in 3 years for surveillance. - Return to primary care physician as previously scheduled. Procedure Code(s): --- Professional --- 09145, Colonoscopy, flexible; with removal of tumor(s), polyp(s), or other lesion(s) by snare technique G0500, Moderate sedation services provided by the same (more content not included)... [facility] - 09-17-2022 Evaluation + Plan note Associated Problem(s): Chronic pain of right knee Xray ordered [facility] Work Phone: 09-17-2022 Evaluation + Plan note Associated Problem(s): Memory impairment September 2022 CIT dementia screen score of 0 Consider MRI brain or neuro referral- will call if he wishes to pursue [facility] Work Phone: 09-17-2022 Miscellaneous Notes Associated Problem(s): Chronic pain of right knee Xray ordered Associated Problem(s): Memory impairment September 2022- CIT dementia screen score of 0 Consider MRI brain or neuro referral- will call if he wishes to pursue Associated Problem(s): Decreased hearing of both ears Declines referral at this time Associated Problem(s): Class 1 obesity due to excess calories with serious comorbidity and body mass index (BMI) of 33.0 to 33.9 in adult Mindful of diet and ex Associated Problem(s): Neuropathy Discussed diabetic induced, alcohol induced, further testing, pod referral, trial of meds - will monitor Associated Problem(s): Mixed hyperlipidemia Hx of elevated LFT with statin use Mindful of diet and ex Associated Problem(s): Type 2 diabetes mellitus with hyperglycemia (CMS/HCC) Stable with diet and ex Associated Problem(s): Hypertension associated with diabetes (CMS/HCC) Stable with diet and ex Discussed benefit of ACEI documented in this encounter [facility] Work Phone: 09-17-2022 Evaluation + Plan note Associated Problem(s): Decreased hearing of both ears Declines referral at this time [facility] Work Phone: 09-17-2022 Evaluation + Plan note Associated Problem(s): Class 1 obesity due to excess calories with serious comorbidity and body mass index (BMI) of 33.0 to 33.9 in adult Mindful of diet and ex [facility] Work Phone: 09-17-2022 Evaluation + Plan note Associated Problem(s): Neuropathy Discussed diabetic induced, alcohol induced, further testing, pod referral, trial of meds - will monitor [facility] Work Phone: 09-17-2022 Evaluation + Plan note Associated Problem(s): Mixed hyperlipidemia Hx of elevated LFT with statin use Mindful of diet and ex [facility] Work Phone: 09-17-2022 Evaluation + Plan note Associated Problem(s): Type 2 diabetes mellitus with hyperglycemia (CMS/HCC) Stable with diet and ex [facility] Work Phone: 09-17-2022 Evaluation + Plan note Associated Problem(s): Hypertension associated with diabetes (CMS/HCC) Stable with diet and ex Discussed benefit of ACEI [facility] Work Phone: 09-17-2022 History of Presen t illness Narrative Subjective Reason for Visit: Marvel Denis is an 67 y.o. male here for a Welcome Medicare Wellness visit. Past Medical, Surgical, and Family History reviewed and updated in chart. Reviewed all medications by prescribing practitioner or clinical pharmacist (such as prescriptions, OTCs, herbal therapies and supplements) and documented in the medical record. Difficulty with hearing -declines referral but will call if he changes his mind Memory concerns- 6 CIT dementia screening score of 0 - will cont to monitor Discussed consider MRI brain or neuro referral - declines but will call if he wants to pursue Advanced Care Planning Diagnosis, treatment and prognosis discussed with patient. Patient has capacity to make his/her own decision. Patient DOES NOT have a living will. Patient is advised to set one up and bring a copy of this documenation for the chart. HPI Welcome to medicare Labs Med check hyperchol - at one time was on statin but stopped d/t evated LFT Diabetic Management DM - previously was managed with diet and ex Eye - has been a few year - advised to schedule a visit Pod - suspect neuropathy and advised to schedule a visit - declines at this time Discussed benefit of statin and ACEI - declines at this time - will work on diet and ex Microalbumin urine - august 2022- WNL R knee pain Injury summer falls 2021 pt states squatted on the knees working on the washing machine his knee popped which happens often. knee pain did flare up pretty bad for a few mo but has improved with time pain is now only when he goes up and down the steps pt states he has to lead with his left foot and come down with his L foot initially it was swollen - inferior patella and used a brace and but denied instability pt took aleve on and off but currently is not needing anything anymore he is just concerned with the limitation that is seen when using stairs Xray ordered but states not done d/t cost - denies anything further at this time memory concerns pt has noticed prob for a few years but feels like it is getting worse pt states short term memory concerns pt granddaughter lived with her for 4 years and states he really has to stop and remember her name. states his biggest struggle is peoples names pt thinks grandmother may have had alzheimers but was older and never severe 6CIT score of 0 - September 2022 sleeping concerns neuropathy in the feet does well with melatonin but questions the foot prob - arch to toes numbness and is concerned with taking melatonin given some of his memory concerns - again discussed pod referral. I do question DM neuropathy, alcohol neuropathy, idiopathic neuropathy - in gen labs are approp Preventative PSA - august 2022 - WNL colonocopy August 2022 tubular adenoma - repeat in 3 years Tobacco - Neg September 2022 Falls - pos - may 2022 - tripped - known neuropathy - denies concerns PHQ2 - Neg September 2022 Patient Care Team: Veronique Morrow PA-C as PCP - General Nena Salinas MD as PCP - [employer] PCP Review of Systems Constitutional: Positive for fatigue. Negative for chills and fever. HENT: Negative for congestion, rhinorrhea, sinus pain, sore throat and tinnitus. Eyes: Negative for discharge, redness and visual disturbance. Respiratory: Negative for cough, chest tightness, shortness of breath and wheezing. Cardiovascular: Negative for chest pain, palpitations and leg swelling. Gastrointestinal: Negative for abdominal pain, constipation, diarrhea, nausea and vomiting. Endocrine: Negative for cold intolerance and heat intolerance. Genitourinary: Negative for flank pain, frequency and urgency. Musculoskeletal: Positive for arthralgias. Negative for back pain, gait problem and neck pain. Skin: Negative for rash and wound. Neurological: Positive for numbness. Negative for dizziness, tremors, syncope and headaches. Hematological: Does not bruise/bleed easily. Psychiatric/Behavioral: Positive for confusion. Negative for sleep disturbance and suicidal ideas. Objective Vitals: BP 136/80 (BP Location: Right arm, Patient Position: Sitting) Pulse 72 Ht 1.676 m (5' 6 ) Wt 94.3 kg (208 lb) SpO2 96% BMI 33.57 kg/m Physical Exam Vitals reviewed. Constitutional: Appearance: Normal appearance. He is obese. HENT: Head: Normocephalic. Right Ear: External ear normal. Left Ear: External ear normal. Nose: Nose normal. No congestion or rhinorrhea. Mouth/Throat: Mouth: Mucous membranes are moist. Eyes: Extraocular Movements: Extraocular movements intact. Conjunctiva/sclera: Conjunctivae normal. Pupils: Pupils are equal, round, and reactive to light. Cardiovascular: Rate and Rhythm: Normal rate and regular rhythm. Pulses: Normal pulses. Pulmonary: Effort: Pulmonary effort is normal. Breath sounds: Normal breath sounds. Abdominal: General: Bowel sounds are normal. Palpations: Abdomen is soft. Tenderness: There is no abdominal tenderness. There is no right CVA tenderness or left CVA tenderness. Musculoskeletal: General: No tenderness. Normal range of motion. Cervical back: Normal range of motion and neck supple. No tenderness. Skin: General: Skin is warm and dry. Neurological: General: No focal deficit present. Mental Status: He is alert and oriented to person, place, and time. Psychiatric: Mood and Affect: Mood normal. Behavior: Behavior normal. Testing Reviewed labs September 03, 2022 from [facility] Assessment/Plan [facility] 1) COMPLEXITY: MORE THAN 1 STABLE CHRONIC CONDITION ADDRESSED 2)DATA: TESTS INTERPRETED AND OR ORDERED, TOOK INDEPENDENT HISTORY OR RECORDS REVIEWED 3)RISK: MODERATE RISK DUE TO NATURE OF MEDICAL CONDITIONS/COMORBIDITY OR MEDICATIONS ORDERED OR SURGICAL OR PROCEDURE REFERRAL, . Reviewed labs and Testing on file Patient to follow diet low in cholesterol, fat, and sodium. Patient is advised to increase Exercise. Patient is recommended to lose weight. Reviewed Meds and discussed common side effects Continue as directed Patient is strongly advised to be compliant with recommendations. Return to Clinic sooner if needed. Patient denies further questions/concerns at this time Problem List Items Addressed This Visit Nervous Neuropathy Current Assessment & Plan Discussed diabetic induced, alcohol induced, further testing, pod referral, trial of meds - will monitor Circulatory Hypertension associated with diabetes ([facility]) Current Assessment & Plan Stable with diet and ex Discussed benefit of ACEI Musculoskeletal Chronic pain of right knee Current Assessment & Plan Xray ordered Endocrine/Metabolic Type 2 diabetes mellitus with hyperglycemia ([facility]) Current Assessment & Plan Stable with diet and ex Relevant Orders Comprehensive Metabolic Panel Hemoglobin A1C Class 1 obesity due to excess calories with serious comorbidity and body mass index (BMI) of 33.0 to 33.9 in adult Current Assessment & Plan Mindful of diet and ex Other Mixed hyperlipidemia Current Assessment & Plan Hx of elevated LFT with statin use Mindful of diet and ex Decreased hearing of both ears Current Assessment & Plan Declines referral at this time Memory impairment Current Assessment & Plan September 2022- 6 CIT dementia screen score of 0 Consider MRI brain or neuro referral- will call if he wishes to pursue Other Visit Diagnoses Welcome to Medicare preventive visit - Primary Advanced care planning/counseling discussion FU in 6 mo with labs at [facility] fasting and med check documented in this encounter [facility] Work Phone: 06-09-2019 History of Presen t illness Narrative Patient presents today for....1 to re-est as new patient - was last seen jun 2019 (just over 3 years ago )2 Med check /Problemshyperchol - at one time was on statin but stopped d/t evated LFT Diabetic ManagementDM - previously was managed with diet and ex3 R knee painInjury 6 monthspt states squatted on the knees working on the washing machinehis knee popped which happens often.knee pain did flare up pretty bad for a few mo but has improved with timepain is now only when he goes up and down the stepspt states he has to lead with his left foot and come down with his L footinitially it was swollen - inferior patella and used a brace and but denied instabilitypt took aleve on and off but currently is not needing anything anymorehe is just concerned with the limitation that is seen when using stairs4 abd painL side of waist x 3 dayspt states may have been from what he atesymptoms have since resolvedhe admits to hx of diverticular dzhe is overdue for colonoscopy as wellhe has felt well for about 2 weeks now5 memory concernspt has noticed prob for a few years but feels like it is getting worsept states short term memory concernspt granddaughter lived with her for 4 years and states he really has to stop and remember her name. states his biggest struggle is peoples namespt thinks grandmother may have had alzheimers but was older and never severe6 sleeping concernsneuropathy in the feetdoes well with melatonin but questions the foot prob - arch to toes numbness and is concerned with taking melatonin given some of his memory concerns7 PreventativePSA - due for labscolonoscopy -jan 2017 - repeat in 3 years -[facility] Work Phone: 06-09-2019 History of Presen t illness Narrative Patient presents today for....1 to re-est as new patient - was last seen jun 2019 (just over 3 years ago )2 Med check /Problemshyperchol - at one time was on statin but stopped d/t evated LFT Diabetic ManagementDM - previously was managed with diet and ex3 R knee painInjury 6 monthspt states squatted on the knees working on the washing machinehis knee popped which happens often.knee pain did flare up pretty bad for a few mo but has improved with timepain is now only when he goes up and down the stepspt states he has to lead with his left foot and come down with his L footinitially it was swollen - inferior patella and used a brace and but denied instabilitypt took aleve on and off but currently is not needing anything anymorehe is just concerned with the limitation that is seen when using stairs4 abd painL side of waist x 3 dayspt states may have been from what he atesymptoms have since resolvedhe admits to hx of diverticular dzhe is overdue for colonoscopy as wellhe has felt well for about 2 weeks now5 memory concernspt has noticed prob for a few years but feels like it is getting worsept states short term memory concernspt granddaughter lived with her for 4 years and states he really has to stop and remember her name. states his biggest struggle is peoples namespt thinks grandmother may have had alzheimers but was older and never severe6 sleeping concernsneuropathy in the feetdoes well with melatonin but questions the foot prob - arch to toes numbness and is concerned with taking melatonin given some of his memory concerns7 PreventativePSA - due for labscolonoscopy -jan 2017 - repeat in 3 years [facility] Work Phone: documented in this encounter [facility] Work Phone: Evaluation note* Diagnosis RUQ abdominal pain- Primary Abdominal pain, right upper quadrant Hypertension associated with diabetes (CMS/HCC) Unspecified essential hypertension Type 2 diabetes mellitus with hyperglycemia, without long-term current use of insulin (CMS/HCC) Class 1 obesity due to excess calories with serious comorbidity and body mass index (BMI) of 30.0 to 30.9 in adult Mixed hyperlipidemia History of alcohol dependence (CMS/HCC) documented in this encounter [facility] Work Phone: Evaluation note* Diagnosis RUQ abdominal pain- Primary Abdominal pain, right upper quadrant Gallbladder sludge Acute cough Hypertension associated with diabetes (CMS/HCC) Unspecified essential hypertension Overweight (BMI 25.0-29.9) Overweight Type 2 diabetes mellitus with hyperglycemia, without long-term current use of insulin (CMS/HCC) History of alcohol dependence (CMS/HCC) Fatty liver Other chronic nonalcoholic liver disease documented in this encounter [facility] Work Phone: Evaluation note* Diagnosis Abnormal screening cardiac CT- Primary Nonspecific (abnormal) findings on radiological and other examination of other intrathoracic organs Hypertension associated with diabetes (CMS/HCC) Unspecified essential hypertension Type 2 diabetes mellitus with hyperglycemia, without long-term current use of insulin (CMS/HCC) Screening PSA (prostate specific antigen) Special screening for malignant neoplasm of prostate Overweight (BMI 25.0-29.9) Overweight Fatty liver Other chronic nonalcoholic liver disease RUQ abdominal pain Abdominal pain, right upper quadrant documented in this encounter [facility] Work Phone: Evaluation note* Diagnosis SOB (shortness of breath) Shortness of breath Pleurisy Pleurisy without mention of effusion or current tuberculosis documented in this encounter [facility] Work Phone: Evaluation note* Diagnosis Fatty liver Other chronic nonalcoholic liver disease RUQ abdominal pain Abdominal pain, right upper quadrant Gallbladder sludge Diverticular disease of colon Diverticulosis of colon (without mention of hemorrhage) RLQ abdominal pain Abdominal pain, right lower quadrant documented in this encounter [facility] Work Phone: Evaluation note* Diagnosis Pleural effusion on right- Primary Unspecified pleural effusion Centrilobular emphysema (CMS/HCC) Hypertension associated with diabetes (CMS/HCC) Unspecified essential hypertension Type 2 diabetes mellitus with hyperglycemia, without long-term current use of insulin (CMS/HCC) Overweight (BMI 25.0-29.9) Overweight Diverticular disease of colon Diverticulosis of colon (without mention of hemorrhage) Fatty liver Other chronic nonalcoholic liver disease Pleurisy Pleurisy without mention of effusion or current tuberculosis RUQ abdominal pain Abdominal pain, right upper quadrant Gallbladder sludge documented in this encounter [facility] Work Phone: Evaluation note* Diagnosis Centrilobular emphysema (CMS/HCC) Pleural effusion on right Unspecified pleural effusion documented in this encounter [facility] Work Phone: Evaluation note* Diagnosis Pleural effusion on right- Primary Unspecified pleural effusion Hypertension associated with diabetes (CMS/HCC) Unspecified essential hypertension Overweight (BMI 25.0-29.9) Overweight Fatty liver Other chronic nonalcoholic liver disease Centrilobular emphysema (CMS/HCC) Lung nodule Other diseases of lung, not elsewhere classified RUQ abdominal pain Abdominal pain, right upper quadrant Gallbladder sludge documented in this encounter [facility] Work Phone: Evaluation note* Diagnosis Centrilobular emphysema (CMS/HCC)- Primary Pleural effusion on right Unspecified pleural effusion Lung nodule Other diseases of lung, not elsewhere classified documented in this encounter [facility] Work Phone: Evaluation note* Diagnosis Gallbladder sludge- Primary RUQ abdominal pain Abdominal pain, right upper quadrant Hypertension associated with diabetes (CMS/HCC) Unspecified essential hypertension Overweight (BMI 25.0-29.9) Overweight Type 2 diabetes mellitus with hyperglycemia, without long-term current use of insulin (CMS/HCC) Fatty liver Other chronic nonalcoholic liver disease Diverticular disease of colon Diverticulosis of colon (without mention of hemorrhage) Centrilobular emphysema (CMS/HCC) Lung nodule Other diseases of lung, not elsewhere classified Pleural effusion on right Unspecified pleural effusion documented in this encounter [facility] Work Phone: Evaluation note* Diagnosis Pleural effusion on right- Primary Unspecified pleural effusion Centrilobular emphysema (CMS/HCC) Lung nodule Other diseases of lung, not elsewhere classified SOB (shortness of breath) Shortness of breath RUQ abdominal pain Abdominal pain, right upper quadrant Hypertension associated with diabetes (CMS/HCC) Unspecified essential hypertension Overweight (BMI 25.0-29.9) Overweight Type 2 diabetes mellitus with hyperglycemia, without long-term current use of insulin (CMS/HCC) Fatty liver Other chronic nonalcoholic liver disease documented in this encounter [facility] Work Phone: Evaluation note* Diagnosis Centrilobular emphysema (CMS/HCC) Pleural effusion on right Unspecified pleural effusion documented in this encounter [facility] Work Phone: Evaluation note* Diagnosis Personal history of colonic polyps Encounter for screening for malignant neoplasm of colon Benign neoplasm of descending colon Polyp of colon Benign neoplasm of colon Diverticulosis of large intestine without perforation or abscess without bleeding documented in this encounter [facility] Work Phone: Evaluation note* Diagnosis Fatty liver Other chronic nonalcoholic liver disease RUQ abdominal pain Abdominal pain, right upper quadrant Gallbladder sludge Diverticular disease of colon Diverticulosis of colon (without mention of hemorrhage) RLQ abdominal pain Abdominal pain, right lower quadrant documented in this encounter [facility] Work Phone: Evaluation note* Diagnosis SOB (shortness of breath) Shortness of breath Pleurisy Pleurisy without mention of effusion or current tuberculosis documented in this encounter [facility] Work Phone: Reason for referral (narrative)* Consultation (Routine) - Pending Review Specialty Diagnoses / Procedures Referred By Contac t Referred To Contact Cardiology Diagnoses Abnormal screening cardiac CT Hypertension associated with diabetes (CMS/HCC) Procedures LA OFFICE/OUTPATIENT NEW HIGH MDM 60-74 MINUTES Veronique Morrow PA-C [address] [place] [address] Referral ID Status Reason Start Date Expiration Date Visits Requested Visits Authorized [id number] Pending Review Specialty Services Required 03/04/2023 08/31/2023 1 1 [facility] Work Phone: Reddus for referral (narrative)* Consultation (Routine) - Authorized Specialty Diagnoses / Procedures Referred By Contac t Referred To Contact General Surgery Diagnoses Gallbladder sludge RUQ abdominal pain Veronique Morrow PA-C [address] [place] [address] Referral ID Status Reason Start Date Expiration Date Visits Requested Visits Authorized [id number] Authorized Specialty Services Required 04/16/2023 04/15/2024 1 1 [facility] Work Phone: Reason for referral (narrative)* Consultation (Routine) - Authorized Specialty Diagnoses / Procedures Referred By Flako pastor Referred To Contact Pulmonary Disease / Pulmonology Diagnoses Centrilobular emphysema (CMS/HCC) Lung nodule Pleural effusion on right SOB (shortness of breath) RUQ abdominal pain Veronique Morrow PA-C [address] [place] [address] Referral ID Status Reason Start Date Expiration Date Visits Requested Visits Authorized [id number] Authorized Specialty Services Required 04/27/2024 1 1 [facility] Work Phone: Summary Purpose Family History No Family History Records Found Mother Name Dates Details Family history of malignant neoplasm of breast(V16.3, Z80.3) Status:Active Father Name Dates Details Family history of diabetes m ellitus(V18.0, Z83.3) Status:Active Family history of Type 2 marielle betes mellitus without complication, unspecified 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 insulin use(250.00, E11.9) Status:Active Mother Name Dates Details Family history of malignant neoplasm of breast(V16.3, Z80.3) Status:Active Father Name Dates Details Family history of diabetes m ellitus(V18.0, Z83.3) Status:Active Family history of Type 2 marielle betes mellitus without complication, unspecified whether alf insulin use(250.00, E11.9) Status:Active Mother Name Dates Details Family history of malignant neoplasm of breast(V16.3, Z80.3) Status:Active Father Name Dates Details Family history of diabetes m ellitus(V18.0, Z83.3) Status:Active Unknown Family Member Name Dates Details Family history of malignant neoplasm of breast: Mother(V16.3, Z80.3) Status:Active Family history of diabetes m ellitus: Father(V18.0, Z83.3) Status:Active Unknown Family Member Name Dates Details Family history of malignant neoplasm of breast: Mother(V16.3, Z80.3) Status:Active Family history of diabetes m ellitus: Father(V18.0, Z83.3) Status:Active Unknown Family Member Name Dates Details Family history of malignant neoplasm of breast: Mother(V16.3, Z80.3) Status:Active Family history of diabetes m ellitus: Father(V18.0, Z83.3) Status:Active Unknown Family Member Name Dates Details Family history of malignant neoplasm of breast: Mother(V16.3, Z80.3) Status:Active Family history of diabetes m ellitus: Father(V18.0, Z83.3) Status:Active Advance Directives No Advanced Directives Records FoundLatest Code Status on File Code Status Date Activated Date Inactivated Comments Full Code 03/27/2023 7:16 AM 03/27/2023 1:13 PM Question Answer Comments Plan of Care: Code Status Discussion Completed Decision Maker: Patient Latest Code Status on File Code Status Date Activated Date Inactivated Comments Full Code 03/27/2023 7:16 AM 03/27/2023 1:13 PM Question Answer Comments Plan of Care: Code Status Discussion Completed Decision Maker: Patient Latest Code Status on File Code Status Date Activated Date Inactivated Comments Full Code 03/27/2023 7:16 AM 03/27/2023 1:13 PM Question Answer Comments Plan of Care: Code Status Discussion Completed Decision Maker: Patient Chief Complaint * A telephone visit (audio only) between the patient (at the originating site) and the provider (at the distant site) was utilized to provide this telehealth service. * Verbal consent was requested and obtained from MARVEL DENIS on this date, 07/29/2022 09:20 AM , for a telehealth visit. * RE-EST. C/O KNEE PAIN GOING UP/DOWN STAIRS, PAIN IN LT SIDE OF WAIST. HAVING A HARD TIME REMEMBERING THINGS * A telephone visit (audio only) between the patient (at the originating site) and the provider (at the distant site) was utilized to provide this telehealth service. * Verbal consent was requested and obtained from MARVEL DENIS on this date, 07/29/2022 09:20 AM , for a telehealth visit. * RE-EST. C/O KNEE PAIN GOING UP/DOWN STAIRS, PAIN IN LT SIDE OF WAIST. HAVING A HARD TIME REMEMBERING THINGS Reason for Referral Specialty Diagnoses / Procedures Referred By Contac t Referred To Contact Radiology Diagnoses Hypertension associated with diabetes ([facility]) Type 2 diabetes mellitus with hyperglycemia, without long-term current use of insulin ([facility]) Procedures CT cardiac scoring wo IV contrast Veronique Morrow PA-C [address] [place] [address] Referral ID Status Reason Start Date Expiration Date Visits Requested Visits Authorized [id number] Authorized Perform Procedure 02/03/2023 08/02/2023 1 1 Specialty Diagnoses / Procedures Referred By Contac t Referred To Contact Radiology Diagnoses RUQ abdominal pain Procedures US abdomen complete Veronique Morrow PA-C [address] [place] [address] Referral ID Status Reason Start Date Expiration Date Visits Requested Visits Authorized [id number] Authorized Perform Procedure 02/03/2023 08/02/2023 1 1 Specialty Diagnoses / Procedures Referred By Contac t Referred To Contact Radiology Diagnoses RUQ abdominal pain Gallbladder sludge Procedures NM hepatobiliary Veronique Morrow PA-C [address] [place] [address] Referral ID Status Reason Start Date Expiration Date Visits Requested Visits Authorized [id number] Authorized Perform Procedure 02/18/2023 08/17/2023 3 3 Specialty Diagnoses / Procedures Referred By Contac t Referred To Contact Diagnoses SOB (shortness of breath) Pleurisy Procedures Pulmonary function testing Veronique Morrow PA-C [address] [place] [address] Referral ID Status Reason Start Date Expiration Date V isits Requested Visits Authorized [id number] Pending Review 03/27/2023 03/26/2024 1 1 Specialty Diagnoses / Procedures Referred By Contac t Referred To Contact Radiology Diagnoses Fatty liver RUQ abdominal pain Gallbladder sludge Diverticular disease of colon RLQ abdominal pain Procedures CT abdomen pelvis w IV contrast Veronique Morrow PA-C [address] [place] [address] Referral ID Status Reason Start Date Expiration Date Visits Requested Visits Authorized [id number] Pending Review Perform Procedure 3 03/30/2024 1 1 Specialty Diagnoses / Procedures Referred By Contac t Referred To Contact Radiology Diagnoses Centrilobular emphysema (CMS/HCC) Pleural effusion on right Procedures CT chest w IV contrast Veronique Morrow, PA-C [address] [place] [address] Referral ID Status Reason Start Date Expiration Date Visits Requested Visits Authorized [id number] Pending Review Perform Procedure 3 04/02/2024 1 1 Specialty Diagnoses / Procedures Referred By Contac t Referred To Contact Diagnoses Centrilobular emphysema (CMS/HCC) Veronique Morrow PA-C [address] [place] [address] Referral ID Status Reason Start Date Expiration Date V isits Requested Visits Authorized [id number] Pending Review 1 1 Specialty Diagnoses / Procedures Referred By Contac t Referred To Contact Radiology Diagnoses Centrilobular emphysema (CMS/HCC) Pleural effusion on right Procedures CT chest w IV contrast Veronique Morrow PA-C [address] [place] [address] [facility] [address] [place] [address] Specialty Diagnoses / Procedures Referred By Contac t Referred To Contact Radiology Diagnoses Pleural effusion on right Lung nodule Procedures CT chest wo IV contrast Veronique Morrow PA-C [address] [place] [address] Referral ID Status Reason Start Date Expiration Date Visits Requested Visits Authorized [id number] Pending Review Perform Procedure 04/15/2023 04/14/2024 1 1 Additional Source Comments (unrecognized sect ion and content) No Status Records FoundNo Status Records FoundNo Status Records FoundNo Status Records FoundNo Status Records FoundNo Status Records FoundNo Status Records FoundNo Status Records Found INFORMATION SOURCE (unrecogn ized section and content) DATE CREATED AUTHOR AUTHOR'S ORGANIZ ATION 01/06/2019 [facility] DATE CREATED AUTHOR AUTHOR'S ORGANIZ ATION 08/29/2022 [employer] DATE CREATED AUTHOR AUTHOR'S ORGANIZ ATION 09/18/2022 [facility] DATE CREATED AUTHOR AUTHOR'S ORGANIZ ATION 03/02/2023 [facility] DATE CREATED AUTHOR AUTHOR'S ORGANIZ ATION 04/30/2023 [facility] DATE CREATED AUTHOR AUTHOR'S ORGANIZ ATION 06/04/2023 [facility] DATE CREATED AUTHOR AUTHOR'S ORGANIZ ATION 07/12/2023 [facility] Reason for Visit (unrecogniz ed section and content) Reason Comments LIVER PAIN RIGHT BELOW RIB S ON RIGHT SIDE IN KIDNEY AREA SHOULDERS AND LUNGS X 3 WEEKS Reason Comments Follow-up FOLLOW UP ON TESTING AND [facility] STATES HE DID HAVE HIS US DONE AT [facility] BUT NOT HIS CT DONE BECAUSE THEY COULDN'T GET HIM IN UNTIL MARCH. Reason Comments Follow-up F/U ON CARDIAC CALCI UM SCORE TEST AND SCANPT HAS NOT SEEN THE CARDIO SPECIALIST YET AND HAS QUESTIONS ON IF HE CAN DO PROJECTS AT HOME STILL OR WAIT. Specialty Diagnoses / Procedures Referred By Flako pastor Referred To Contact Diagnoses SOB (shortness of breath) Pleurisy Procedures Pulmonary function testing Veronique Morrow PA-C [address] [place] [address] Referral ID Status Reason Start Date Expiration Date V isits Requested Visits Authorized [id number] Pending Review 03/27/2023 03/26/2024 1 1 Specialty Diagnoses / Procedures Referred By Flako pastor Referred To Contact Radiology Diagnoses Fatty liver RUQ abdominal pain Gallbladder sludge Diverticular disease of colon RLQ abdominal pain Procedures CT abdomen pelvis w and wo IV contrast Veronique Morrow PA-C [address] [place] [address] [address] [place] [address] Referral ID Status Reason Start Date Expiration Date Visits Requested Visits Authorized [id number] Canceled Perform Procedure 3 03/26/2024 1 1 Reason Comments Follow-up F/U WITH CT AND [facility] THING TESTS Specialty Diagnoses / Procedures Referred By Contac t Referred To Contact Radiology Diagnoses Centrilobular emphysema (CMS/HCC) Pleural effusion on right Procedures CT chest w IV contrast Veronique Morrow PA-C [address] [place] [address] [facility] [address] [place] [address] Referral ID Status Reason Start Date Expiration Date Visits Requested Visits Authorized [id number] Pending Review Perform Procedure 3 04/02/2024 1 1 Reason Comments Follow-up 3-6 WEEK F/U AFTER C T Reason Comments Cough Lung Nodule Found on CT Chest Pain Specialty Diagnoses / Procedures [facility] Referred To Contact Pulmonary Disease / Pulmonology Diagnoses Acute cough Pleural effusion on right Centrilobular emphysema (CMS/HCC) Lung nodule Veronique Morrow PA-C [address] [facility] [place] [address] Marvel Salas DO [address] [facility] [address] [place] [address] Referral ID Status Reason Start Date Expiration Date Visits Requested Visits Authorized [id number] Authorized Specialty Services Required 04/10/2023 04/09/2024 1 1 Reason Comments Follow-up F/U FOR PULM APPT YE Reason Comments Follow-up 2 WK F/U AFTER SEEIN G SURGEON; NOT USING STILOTO INHALER PER PULM DOCTOR Reason Comments Other Personal history of colonic polyps Care Teams (unrecognized sec tion and content) Principal Associate Relationship Specialty Start Date End Date Veronique Morrow PA-C [address] [place] [address] PCP - General 03/27/17 Nena Salinas MD [address] [place] [address] [place] [address] PCP - [employer] PCP 03/09/22 Principal Associate Relationship Specialty Start Date End Date Veronique Morrow PA-C [address] [place] [id number] PCP - General 03/27/17 Nena Salinas MD [address] [place] [address] PCP - [employer] PCP 03/09/22 Principal Associate Relationship Specialty Start Date End Date Veronique Morrow PA-C [address] [place] [address] PCP - General 03/27/17 Nena Salinas MD [address] [place] [address] PCP - [employer] PCP 03/09/22 Principal Associate Relationship Specialty Start Date End Date Veronique Morrow, LEIGH [address] [place] [address] PCP - General 03/27/17 Nena Salinas MD [address] [place], [place] [id number] PCP - [facility] Medicare Advantage PCP 03/09/22 Principal Associate Relationship Specialty Start Date End Date Veronique Morrow PA-C [address] [place] [address] PCP - General 03/27/17 Nena Salinas MD [address] [place] [address] PCP - [employer]age PCP 03/09/22 Principal Associate Relationship Specialty Start Date End Date Veronique Morrow PA-Linda [address] [place] [address] PCP - General 03/27/17 Nena Salinas MD [address] [place] [address] PCP - [employer]age PCP 03/09/22 Principal Associate Relationship Specialty Start Date End Date Veronique Morrow PA-C [address] [place] [address] PCP - General 03/27/17 Nena Salinas MD [address] [place] [address] PCP - [employer]age PCP 03/09/22 Principal Associate Relationship Specialty Start Date End Date Veronique Morrow PA-Linda [address] [place] [address] PCP - General 03/27/17 Nena Salinas MD [address] [place] [address] PCP - [employer]age PCP 03/09/22 Principal Associate Relationship Specialty Start Date End Date Veronique Morrow PA-C [address] [address] PCP - General 03/27/17 Nena Salinas MD [address] [place] [address] PCP - [employer]age PCP 03/09/22 Principal Associate Relationship Specialty Start Date End Date Veronique Morrow PA-C [address] [address] PCP - General 03/27/17 Nena Salinas MD [address] [place] [address] [place] [address] PCP - [employer] Medicare [employer]vantage PCP 03/09/22 Principal Associate Relationship Specialty Start Date End Date Veronique Morrow PA-C [address] [place] [address] PCP - General 03/27/17 Nena Salinas MD [address] [place] [address] PCP - [employer]age PCP 03/09/22 Principal Associate Relationship Specialty Start Date End Date Veronique Morrow PA-C [address] [place] [address] PCP - General 03/27/17 Nena Salinas MD [address] [place] [address] PCP - [employer] Medicare [employer]vantage PCP 03/09/22 FOR RECORDS PERTAINING TO PATIENTS WHO ARE OR HAVE BEEN ENROLLED IN A CHEMICAL DEPENDENCY/SUBSTANCEABUSE PROGRAM, SOME INFORMATION MAY BE OMITTED. This clinical summary was aggregated from multiple sources. Caution should be exercised in using it in the provision of clinical care. This summary normalizes information from multiple sources, and as a consequence, information in this document may materially change the coding, format and clinical context of patient data. In addition, data may be omitted in some cases. CLINICAL DECISIONS SHOULD BE BASED ON THE PRIMARY CLINICAL RECORDS. [facility]. provides no warranty or guarantee of the accuracy or completeness of information in this document.
--- NOTE | 2023-07-14 18:44 | CT_ITS ---
STUDY: CT CHEST WITHOUT CONTRAST REASON FOR EXAM: Male, 68 years old. COUGH. Pain beneath the right ribs. RADIATION DOSAGE (If Supplied By Facility): CTDIvol = ( 15.82 ) mGy, DLP = ( 612.94 ) mGycm TECHNIQUE: Transaxial imaging was performed without the administration of intravenous contrast material. Multiplanar coronal and sagittal images were reformatted. Individualized dose optimization techniques were used for this CT. COMPARISON: No relevant priors. FINDINGS: CHEST Small right pleural effusion. Compressive atelectasis at the right lung base. There is no demonstrated pleural abnormality. Normal heart and pericardium. There are multiple small lymph nodes within the mediastinum, which are normal in size and morphology most compatible with reactive lymph hyperplasia. Calcified bilateral hilar lymph nodes. Normal unenhanced pulmonary arteries. There is atherosclerotic calcification of the aortic arch. There are multi-level degenerative changes of the thoracic spine. Increased kyphosis. Calcified splenic granulomas. CT/Chest without Contrast IMPRESSION: Small right pleural effusion with compressive atelectasis at the right lung base. Calcified bilateral hilar lymph nodes. Electronically Signed: Enzo Collins MD at 15:31 EST ,
== END | disposition home or self-care (01) ==
PROVIDERS: PCP Physician Assistant Medical; Visit Provider Internal Medicine Pulmonary Disease
DX: R91.1 Solitary pulmonary nodule (principal)
CPT/HCPCS: 71250

== ENCOUNTER → 2023-07-23 | Outpatient (CLI) | payer MEDICARE, SELFPAY ==
--- NOTE | 2023-07-23 | FLU_PTH ---
PATHOLOGY RESULTS PATIENT: MARVEL HAND LOC: [facility]#:[id number] AGE/SX: 68/M ROOM: RE07/23/[address]: Dr. Marvel Caballero MD : 1955 BED: DIS: 07/23/2023 SPEC #: [id number] RECD: 07/23/23 11:59 STATUS: KAUSHIK JULIUS #: [id number] SAVANA: 07/23/23 00:[address]: Marvel Caballero V DEPT: CYTOLOGY RECD BY: La Adams ENTERED: 07/23/23 12:42 SP TYPE: Fluid OTHR DR: JENNIFER Siddiqui Tissues: THORACIC FLUID Procedures: Special Stain Group II Surgery Specimen Level IV Cytospin Fluid HEADER OPERATION: Ultrasound-guided thoracentesis, right PRE-OP DIAGNOSIS: Right pleural effusion TISSUE SUBMITTED: Thoracentesis fluid for cytology DIAGNOSIS CYTOLOGY Thoracentesis fluid for cytology (cytospin and cell block): Malignant cells present 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 See comment. SJ:ericka 07/24/2023 COMMENT Immunohistochemistry ([id number]) supports the above diagnosis. Case has been reviewed in consultation with Dr. Bates who concurs with the above diagnosis. IDC:AM CYTOLOGY STUDY Slides are reviewed. CYTOLOGY GROSS Received is 15 ml of red willie cloudy fluid labeled with the patient's name and and designated per the requisition as thoracentesis. Submitted for cytology preparation including cell block. / ericka 07/23/2023 TC:0 CPT: 27785, 36386 ADDENDUM ADDENDUM 09/04/2023 13:06 PD-L1 ([id number]) IMMUNOHISTOCHEMICAL ANALYSIS FROM [facility] RESULTS: Tumor proportion score: 75-80% / Positive Please see complete report in e-chart or EMR
--- NOTE | 2023-07-23 | IMM_PTH ---
PATHOLOGY RESULTS PATIENT: MARVEL HAND LOC: [facility]#:[id number] AGE/SX: 68/M ROOM: RE07/23/[address]: Dr. Marvel Caballero MD : 1955 BED: DIS: 07/23/2023 SPEC #: [id number] RECD: 07/24/23 10:45 STATUS: KAUSHIK REQ #: [id number] SAVANA: 07/23/23 00:[address]: Marvel Caballero V DEPT: IMMUNOHISTOCHEMISTRY RECD BY: Lisette Nelson ENTERED: 07/24/23 10:47 SP TYPE: IMMUNO OTHR DR: JENNIFER Siddiqui Tissues: THORACIC FLUID Procedures: RCC (add) NAPSIN A (add) Lane Ret (add) CK20 (add) CK5-6 (add) CK7 (add) CK8 (add) HEP PAR (add) TTF1 (add) Vimentin (add) Pankeratin (initial) P40 (add) PSAP (add) CD68 (ADD) PHYSICIAN & [address] [address] SPECIMEN INFORMATION: Tissue Source: Thoracentesis fluid Clinical Info: Right pleural effusion Specimen Number: [id number] CPT code: 54789, 36173 x13 METHODOLOGY: Deparaffinized sections of prefer/formalin-fixed tissue or PAP/DQ stained slides are incubated with monoclonal/polyclonal antibodies/oligonucleotide probes. Localization is made via biotin free immunoperoxidase method. Appropriate controls are performed and reacted as expected. Results on target cell population are indicated in the following table: RESULTS: ANTIBODY / CLONE RESULT AE1-3 (AE1/AE3/PCK26) positive CK7 (OV-TL12/30) positive CK8 (77tmflI52) positive CK20 (KS20.8) negative Vimentin (V9) negative CD68 (KP-1) negative TTF-1 (8G7G3/1) positive Napsin A (Rabbit Polyclonal) positive HepPar (OCh1E5) negative RCC (PN-15) negative PSAP (PASE/4LJ) negative CALRET (polyclonal) negative CK5-6 (D5 & 1684) negative P40 (BC28) negative These tests were developed and their performance characteristics determined by [facility]. They may not have been cleared or approved by the [place]. Food and Drug Administration. The FDA has determined that such clearance or approval is not necessary. The above immunohistochemical/dualISH markers are ordered and reviewed by the Pathologist. INTERPRETATION: Thoracentesis fluid (cell block): Malignant cells present 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 SJ/bl 07/25/23
--- NOTE | 2023-07-23 10:21 | US_ITS ---
PROCEDURE: ULTRASOUND GUIDED THORACENTESIS. DATE: 12/21/2023. INDICATION: Male, 68 years old. Right pleural effusion PHYSICIAN: Enzo Collins M.D. PROCEDURE: The risks, benefits, and alternatives to the procedure were explained to the patient. The specific risks of bleeding, infection, and pneumothorax requiring chest tube insertion were discussed and accepted. Written informed consent was obtained. Ultrasonographic evaluation of the right lower pleural space was carried out. An adequate pocket was identified. The patient was placed in the sitting, upright position. The overlying skin was prepped and draped in sterile fashion. 1% lidocaine was administered subcutaneously for local anesthesia. Under ultrasound guidance, a 5 Tajik thoracentesis needle/catheter system was advanced into the right posterior lower pleural fluid collection. Approximately 740 mL of blood-tinged fluid was drained. The catheter was removed, and a sterile dressing was applied. A specimen was collected and sent to the laboratory for analysis, as requested by the referring clinician. The patient tolerated the procedure well. A chest x-ray was ordered. US/Thoracentesis W US IMPRESSION: Ultrasound-guided right thoracentesis. Electronically Signed: Enzo Collins MD at 13:35 EST ,
--- OUTSIDE RECORDS SUMMARY | 2023-07-23 10:53 | XMS RPT_ITS | CCD ---
Author Name Unknown Address [address] [place] [address] Organization [facility] Care Team Providers Care Geriatric Nurse Practitioner Name Role Phone JT MYERS (OD) Unavailable Unavailable JT MYERS (OD) Unavailable Unavailable KAY MALAGON Unavailable Unavailable Cristhian Veronique B Unavailable Unavailable Isabel Jones Unavailable Unavailable Cristhian, Veronique Unavailable Unavailable [place], Veronique B Unavailable Unavailable Unavailable Veronique Morrow PA-C Primary Care Provider Nena Salinas MD Unavailable Cristhian, Ms. Veronique Ilsa Referring Unav ailable [place], Ms. Veronique Ilsa Attending Unav ailable Cristhian, Ms. Veronique Ilsa Primary Care Unav ailable [place], Ms. Veronique Ilsa Attending Unav ailable Cristhian, Ms. Veronique Ilsa Primary Care Unav ailable [place], Ms. Veronique Ilsa Referring Unav ailable [place], Ms. Veronique Ilsa Attending Unav ailable Cristhian, Ms. Veronique Ilsa Primary Care Unav ailable Cristhian, Ms. Veronique Ilsa Attending Unav ailable [place], Ms. Veronique Ilsa Primary Care Unav ailable Cristhian, Ms. Veronique Ilsa Referring Unav ailable [place], Ms. Veronique Ilsa Attending Unav ailable [place], Ms. Veronique Ilsa Primary Care Unav ailable Cristhian, Ms. Veronique Ilsa Referring Unav ailable Zak, Dr. Tim Mascorro Attending Dr. Tim Cisneros Admitting Unavailable Ms. Veronique Morrow Primary Care Unav ailable VERONIQUE MORROW Attending Unavailable CRISTHIAN VERONIQUE B Primary Care Unavailable CRISTHIAN VERONIQUE B Attending Unavailable CRISTHIAN, VERONIQUE B Primary Care Unavailable CRISTHIAN VERONIQUE B Attending Unavailable CRISTHIAN, VERONIQUE B Primary Care Unavailable HESS JOSE GUADALUPE, DEVON FELICIANO Attending Unava ilable CRISTHIAN VERONIQUE B Referring Unavailable CRISTHIAN, VERONIQUE B Primary Care Unavailable CRISTHIAN, VERONIQUE B Attending Unavailable CRISTHIAN, VERONIQUE B Primary Care Unavailable HESS JOSE GUADALUPE, DEVON FELICIANO Attending Unava ilable VERONIQUE MORROW B Primary Care Unavailable CRISTHIAN VERONIQUE B Attending Unavailable CRISTHIAN, VERONIQUE B Primary Care Unavailable CRISTHIAN, VERONIQUE B Attending Unavailable CRISTHIAN, VERONIQUE B Primary Care Unavailable MARVEL SALAS Attending Unavailable CRISTHIAN, VERONIQUE B Referring Unavailable CRISTHIAN, VERONIQUE B Primary Care Unavailable CRISTHIAN, VERONIQUE B Attending Unavailable CRISTHIAN, VERONIQUE B Primary Care Unavailable CRISTHIAN, VERONIQUE B Attending Unavailable CRISTHIAN, VERONIQUE B Primary Care Unavailable VERONIQUE MORROW Primary Care Unavaila MARVEL Meehan Referring Unavailable VERONIQUE MORROW Primary Care Unavaila ble VERONIQUE MORROW Admitting Unavaila ble CRISTHIAN, VERONIQUE B Referring Unavailable CRISTHIAN, VERONIQUE B Primary Care Unavailable CRISTHIAN, VERONIQUE B Referring Unavailable CRISTHIAN, VERONIQUE B Primary Care Unavailable HESS JOSE GUADALUPE, DEOVN FELICIANO Admitting Unava ilable HESS JOSE GUADALUPE, DEVON FELICIANO Attending Unava ilable CRISTHIAN VERONIQUE B Primary Care Unavailable CRISTHIAN, VERONIQUE B Referring Unavailable CRISTHIAN, VERONIQUE B Primary Care Unavailable CRISTHIAN, VERONIQUE B Primary Care Unavailable Medications Current Medications Medication Drug Class(es) Dates Sig (Normalized) Sig (Original) [id number] 200 actuat albuterol 0.09 mg/actuat metered dose [...] disease (2 sources) Atherosclerotic heart disease of [place] coronary artery without angina pectoris; Translations: [Atherosclerotic heart disease of [place] coronary artery without angina pectoris] Onset: 03-27-2023 [...] [Solitary pulmonary nodule] Onset: 04-15-2023 Episodic Other lower respiratory disease (8 sources) Shortness of breath; Translations: [Shortness of breath] Onset: 03-31-2023 Episodic Other male genital disorders (3 sources) [...] Translations: [Unspecified atherosclerosis] Onset: 03-18-2023 03-18-2023 Chronic Pleurisy; pneumothorax; pulmonary collapse (20 sources) Pleurisy; Translations: [Pleurisy] Onset: 03-31-2023 03-31-2023 Episodic Unclassified (3 sources) Acute cough; Translations: [Acute [...] [Polyp of colon] Onset: 09-05-2022 Episodic Other non-traumatic joint disorders (20 sources) [...] 167.6 cm Veronique Morrow PA-C Work Phone: [facility] 04-28-2023 11:01-0500 Body mass index (BMI) [Ratio] 29.21 kg/m2 Veronique Morrow PA-C Work Phone: [facility] 04-28-2023 11:01-0500 Body weight 82.1 kg Veronique [place] PA-C Work Phone: [facility] 04-28-2023 11:01-0500 Diastolic blood pressure 69 mm[Hg] Veronique [place] PA-C Work Phone: [facility] 04-28-2023 11:01-0500 Heart rate 61 /min Veronique [place] PA-C Work Phone: [facility] 04-28-2023 11:01-0500 SaO2% (BldA) [Mass fraction] 95 % Veronique Cristhian PA-C Work Phone: [facility] 04-28-2023 11:01-0500 Systolic blood pressure 122 mm[Hg] Veronique Cristhian PA-C Work Phone: [facility] 04-16-2023 10:20-0500 Body height 167.6 cm Veronique Cristhian PA-C Work Phone: [facility] 04-16-2023 10:20-0500 Body mass index (BMI) [Ratio] 28.89 kg/m2 Veroniquetuan RendonCristhian PA-C Work Phone: [facility] 04-16-2023 10:20-0500 Body weight 81.19 kg Veroniquetuan Zamudioall PA-C Work Phone: [facility] 04-16-2023 10:20-0500 Diastolic blood pressure 72 mm[Hg] Veronique Cristhian PA-C Work Phone: [facility] 04-16-2023 10:20-0500 Heart rate 61 /min Veronique Cristhian PA-C Work Phone: [facility] 04-16-2023 10:20-0500 Systolic blood pressure 123 mm[Hg] Veronique Cristhian PA-C Work Phone: [facility] 04-15-2023 08:01-0500 Body mass index (BMI) [Ratio] 28.83 kg/m2 Marvel Valenzuelaasecki DO Work Phone: [facility] 04-15-2023 08:01-0500 Body temperature 97.11 [degF] Marvel Piasecki DO Work Phone: [facility] 04-15-2023 08:01-0500 Body weight 81.01 kg Marvel Piasecki DO Work Phone: [facility] 04-15-2023 08:01-0500 Diastolic blood pressure 76 mm[Hg] Marvel Piasecki DO Work Phone: [facility] 04-15-2023 08:01-0500 Heart rate 57 /min Marvel Piasecki DO Work Phone: [facility] 04-15-2023 08:01-0500 SaO2% (BldA) [Mass fraction] 93 % Marvel Piasecki DO Work Phone: [facility] 04-15-2023 08:01-0500 Systolic blood pressure 124 mm[Hg] Marvel Piasecki DO Work Phone: [facility] 04-14-2023 13:43-0500 Body height 167.6 cm Veronique Morrow PA-C Work Phone: [facility] 04-14-2023 13:43-0500 Body mass index (BMI) [Ratio] 29.54 kg/m2 Veronique Morrow PA-C Work Phone: [facility] 04-14-2023 13:43-0500 Body weight 83.01 kg Veronique Zamudioall PA-C Work Phone: [facility] 04-14-2023 13:43-0500 Diastolic blood pressure 71 mm[Hg] Veronique Zamudioall PA-C Work Phone: [facility] 04-14-2023 13:43-0500 Heart rate 75 /min Veronique Morrow PA-C Work Phone: [facility] 04-14-2023 13:43-0500 Systolic blood pressure 119 mm[Hg] Veronique [place] PA-C Work Phone: [facility] 04-03-2023 09:52-0400 Body height 167.6 cm Veronique [place] PA-C Work Phone: [facility] 04-03-2023 09:52-0400 Body mass index (BMI) [Ratio] 29.38 kg/m2 Veronique Cristhian PA-C Work Phone: [facility] 04-03-2023 09:52-0400 Body weight 82.56 kg Veronique [place] PA-C Work Phone: [facility] 04-03-2023 09:52-0400 Diastolic blood pressure 77 mm[Hg] Veronique Cristhian PA-C Work Phone: [facility] 04-03-2023 09:52-0400 Heart rate 52 /min Veronique [place] PA-C Work Phone: [facility] 04-03-2023 09:52-0400 Systolic blood pressure 134 mm[Hg] Veronique Cristhian PA-C Work Phone: [facility] 03-04-2023 08:52-0400 Body height 167.6 cm Veronique Cristhian PA-C Work Phone: [facility] 03-04-2023 08:52-0400 Body mass index (BMI) [Ratio] 29.54 kg/m2 Veronique [place] PA-C Work Phone: [facility] 03-04-2023 08:52-0400 Body weight 83.01 kg Veronique Cristhian PA-C Work Phone: [facility] 03-04-2023 08:52-0400 Diastolic blood pressure 73 mm[Hg] Veronique [place] PA-C Work Phone: [facility] 03-04-2023 08:52-0400 Heart rate 61 /min Veronique [place] PA-C Work Phone: [facility] 03-04-2023 08:52-0400 Systolic blood pressure 126 mm[Hg] Veronique Cristhian PA-C Work Phone: [facility] 02-18-2023 15:06-0400 Body height 167.6 cm Veronique [place] PA-C Work Phone: [facility] 02-18-2023 15:06-0400 Body mass index (BMI) [Ratio] 29.86 kg/m2 Veronique [place] PA-C Work Phone: [facility] 02-18-2023 15:06-0400 Body weight 83.92 kg Veronique Cristhian PA-C Work Phone: [facility] 02-18-2023 15:06-0400 Diastolic blood pressure 80 mm[Hg] Veronique [place] PA-C Work Phone: [facility] 02-18-2023 15:06-0400 Heart rate 72 /min Veronique [place] PA-C Work Phone: [facility] 02-18-2023 15:06-0400 Systolic blood pressure 140 mm[Hg] Veronique [place] PA-C Work Phone: [facility] 02-03-2023 12:29-0400 Body height 167.6 cm Veronique Cristhian PA-C Work Phone: [facility] 02-03-2023 12:29-0400 Body mass index (BMI) [Ratio] 30.67 kg/m2 Veronique [place] PA-C Work Phone: [facility] 02-03-2023 12:29-0400 Body weight 86.18 kg Veronique [place] PA-C Work Phone: [facility] 02-03-2023 12:29-0400 Diastolic blood pressure 83 mm[Hg] Veronique [place] PA-C Work Phone: [facility] 02-03-2023 12:29-0400 Heart rate 71 /min Veroniquetuan Zamudioall PA-C Work Phone: [facility] 02-03-2023 12:29-0400 Systolic blood pressure 143 mm[Hg] Veronique Cristhian PA-C Work Phone: [facility] 09-17-2022 10:41-0400 Body height 167.6 cm Veroniquetuan Zamudioall PA-C Work Phone: [facility] 09-17-2022 10:41-0400 Body mass index (BMI) [Ratio] 33.57 kg/m2 Veronique [place] PA-C Work Phone: [facility] 09-17-2022 10:41-0400 Body weight 94.35 kg Veronique [place] PA-C Work Phone: [facility] 09-17-2022 10:41-0400 Diastolic blood pressure 80 mm[Hg] Veronique Cristhian PA-C Work Phone: [facility] 09-17-2022 10:41-0400 Heart rate 72 /min Veroniquetuan Zamudioall PA-C Work Phone: [facility] 09-17-2022 10:41-0400 SaO2% (BldA) [Mass fraction] 96 % Veroniquetuan Zamudioall PA-C Work Phone: [facility] 09-17-2022 10:41-0400 Systolic blood pressure 136 mm[Hg] Veroniquetuan Zamudioall PA-C Work Phone: [facility] 09-02-2022 15:06-0400 Body height 167.4 cm Tim Crespo MD Work Phone: [facility] 09-02-2022 15:06-0400 Body mass index (BMI) [Ratio] 32.94 kg/m2 Tim Crespo MD Work Phone: [facility] 09-02-2022 15:06-0400 Body weight 92.3 kg Tim Crespo MD Work Phone: [facility] 06-17-2019 12:50-0500 BMI (Body Mass Index) 32.28 kg/m2 Veronique Morrow [facility] Work Phone: 06-17-2019 12:50-0500 Body Temperature 97.6 [degF] Veronique Morrow [facility] Work Phone: 06-17-2019 12:50-0500 Body weight 90.72 kg Veronique Morrow [facility] Work Phone: 06-17-2019 12:50-0500 BP Diastolic 86 mm[Hg] Veronique Morrow [facility] Work Phone: 06-17-2019 12:50-0500 BP Systolic 124 mm[Hg] Veronique Morrow [facility] Work Phone: 06-17-2019 12:50-0500 BSA (Body Surface Area) 2 m2 Veronique Morrow [facility] Work Phone: 06-17-2019 12:50-0500 Height 167.64 cm Veronique Morrow [facility] Work Phone: 06-17-2019 12:50-0500 Pulse (Heart Rate) 64 /min Veronique Morrow [facility] Work Phone: Encounters Encounter Date Encounter Type Care Provider Facility Start: 07-18-2023 ambulatory VERONIQUE MORROW [facility] Start: 05-30-2023 End: 06-03-2023 ambulatory VERONIQUE MORROW [facility] Start: 04-28-2023 End: 04-28-2023 ambulatory VERONIQUE MORROW [facility] Start: 04-28-2023 End: 04-28-2023 Office outpatient visit 25 minutes Veroniuqe Morrow PA-C Work Phone: [facility] Procedures Date Procedure Procedure Detail Performing Clinician Start: 07-18-2023 T-SPOT TB VERONIQUE AYDEE GAGE Start: 04-15-2023 AMB REFERRAL TO PULMONOLOGY VERONIQUE MORROW Start: 04-14-2023 Follow-up visit Follow-up VERONIQUE [place] CRISTHIAN Start: 04-08-2023 CT CHEST W IV CONTRAST VERONIQUE MORROW Start: 04-08-2023 Ct thorax w/contrast material Veronique RODRIGUEZ-C Work Phone: Start: 03-31-2023 CT ABDOMEN PELVIS W IV CONTRAST VERONIQUE MORROW Start: 03-31-2023 PULMONARY FUNCTION TESTING VERONIQUETUAN MORROW Start: 03-31-2023 Ct abdomen & pelvis w/contrast material Veronique Morrow PA-C Work Phone: Start: 03-27-2023 DISCHARGE PATIENT DELORIS Don CRISTHIAN Start: 03-27-2023 TELEMETRY MONITORING RA ENRRIQUE MORROW Start: 03-27-2023 CARDIAC CATHETERIZAT ION - CORONARY VERONIQUE CRISTHIAN Start: 03-27-2023 Basic metabolic 2000 panel - Serum or Plasma VERONIQUE CRISTHIAN Start: 03-27-2023 CBC panel - Blood by Automated count VERONIQUE CRISTHIAN Start: 03-27-2023 PLACE IN OUTPATIENT/ HOSPITAL AMBULATORY SURGERY VERONIQUE RENDONENHALL Start: 03-18-2023 ECG 12-LEAD VERONIQUE VAN VICENTE Start: 03-18-2023 AMB REFERRAL TO CARDIOLOGY VERONIQUE OMRROW Start: 09-05-2022 SURGICAL PATHOLOGY RESULTS Tim Crespo MD Work Phone: Start: 09-05-2022 Colonoscopy stoma dx including collj spec spx Veronique Morrow PA-C Work Phone: Start: 09-05-2022 End: 09-05-2022 Colonoscopy Veronique Rai Cristhian Work Phone: Start: 06-17-2019 Comprehensive metabo lic 2000 panel Veronique Morrow Start: 06-17-2019 Hemoglobin glycosylated a1c Veronique Morrow Start: 06-17-2019 Lipid panel Veronique Aydee vicente Start: 06-14-2019 Lipid 1996 panel - S anahi or Plasma Veronique Morrow PA-C Work Phone: Start: 12-31-2018 [object Object] Plan of Treatment Date Care Activity Detail Author Start: 09-05-2032 Screening for malignant neoplasm of colon [facility] Start: 10-07-2023 End: 10-07-2023 Patient encounter procedure 10/07/2023 10:15 AM EDT Office Visit [facility] [address] [place] [address] Devon Fleming MD [address], [place] [address] [place] [id number] [facility] Start: 09-19-2023 Medicare Annual Wellness Visit Medicare Annual Wellness Visit (AWV) [facility] Start: 09-10-2023 End: 09-10-2023 Patient encounter procedure 09/10/2023 10:00 AM EDT Office Visit [facility] [address] [place] [id number] Veronique Morrow PA-C [address] [facility] [place] [id number] [facility] Start: 09-04-2023 Urine screening for protein Diabetes: Urine Protein Screening [facility] Start: 09-02-2023 End: 03-04-2024 CBC W Auto Differential panel - Blood CBC and Auto Differential Lab Routine Hypertension associated with diabetes (CMS/HCC) Type 2 diabetes mellitus with hyperglycemia, without long-term current use of insulin (CMS/HCC) Expected: 09/02/2023 (Approximate), Expires: 03/04/2024 [facility] Work Phone: Immunizations Immunization Date Immunization Notes Care Provider Fa cili 05-29-2022 Fluzone High-Dose Quadrivalent 0.7 ML Intramuscular Suspension Prefilled Syringe Veronique Morrow Work Phone: [facility] Work Phone: 05-29-2022 influenza, seasonal, injectable Veronique Cristhian ABRAHAM Work Phone: [facility] Work Phone: 05-29-2022 influenza virus vaccine, unspecified formulation Veronique Cristhian ABRAHAM Work Phone: [facility] Work Phone: Payers Date Payer Category Payer Medicare HUMANA MEDICARE HU[employer]NA GOLD CHOICE [id number] 2022-Present [address] [address] [place] [address] [id number] 2022 Private Health Insurance CHOICEC ARE HU[employer]NA CHOICECARE HUMANA [id number] 2022-Present [address] [address] [place] [address] [id number] 2022 Private Health Insurance [id number] 1957 Unknown [id number] [id number]. 2.356 1957 Unknown [id number] 2.840.1.632550.3.579. 2.1068 1957 Unknown [id number] 2.840.1.683125.3.579. 2.1068 1957 Unknown [id number] 2.16840.1.478943.3.579. 2.1068 1957 Unknown [id number] 2.16840.1.050013.3.579. 2.1068 1957 Unknown [id number] 2.16840.1.942417.3.579. 2.1068 1957 Unknown [id number] 2.16840.1.547364.3.579. 2.1244 1957 Unknown [id number] 2.16.840.1.213968.3.579. 2.1244 1957 Unknown [id number] 2.16.840.1.770920.3.579. 2.1244 1957 Unknown [id number] 2.16.840.1.283680.3.579. 2.1244 1957 Unknown [id number] 2.16.840.1.940373.3.579. 2.1244 1957 Unknown [id number] 2.16.840.1.616906.3.579. 2.1244 1957 Unknown [id number] 2.16.840.1.973671.3.579. 2.1243 1957 Unknown [id number] 2.16.840.1.970186.3.579. 2.1244 1957 Unknown [id number] 2.16.840.1.506968.3.579. 2.1244 1957 Unknown [id number] 2.16.840.1.951475.3.579. 2.4 1957 Unknown [id number] 2.16.840.1.255432.3.579. 2.4 1957 Unknown [id number] 2.16.840.1.127607.3.579. 2.903 1957 Unknown [id number] 2.16.840.1.146702.3.579. 2.903 1957 Unknown [id number] 2.16.840.1.032569.3.579. 2.1243 1957 Unknown [id number] 2.16.840.1.411099.3.579. 2.1243 1957 Unknown [id number] 2.16.840.1.418847.3.579. 2.1243 1957 Unknown [id number] 2.16.840.1.686197.3.579. 2.1243 1957 Unknown [id number] 2.16.840.1.384432.3.579. 2.1245 Unknown HU[employer] GOLD CHOICE Unknown [id number] Social History Date Type Detail Facility Start: 09-17-2022 End: 04-28-2023 Consumes alcohol weekly Consumes alcohol weekly [facility] Work Phone: Start: 09-17-2022 End: 03-04-2023 Tobacco smoking status NHIS Never smoked tobacco [facility] Start: 09-17-2022 End: 03-18-2023 Tobacco use and exposure Smokeless tobacco non-user [facility] Work Phone: Start: 09-17-2022 End: 02-03-2023 Alcohol intake Current drinker of alcohol (finding) [facility] Work Phone: Start: 09-17-2022 End: 04-28-2023 Tobacco use panel [facility] Work Phone: Start: 09-17-2022 Tobacco Comment DOES NOT SMOKE OR USE SMOKELESS BUT CHEWS NICOTINE GUM DAILY. [facility] Work Phone: Start: 09-17-2022 [facility] Start: 1955 Sex Assigned At Not on file [facility] Work Phone: Start: 09-07-2022 End: 04-28-2023 Exposure to SARS-CoV-2 (event) Not sure [facility] Start: 02-18-2023 End: 03-27-2023 Alcohol intake Ex-drinker (finding) [facility] Work Phone: Start: 03-04-2023 Tobacco Comment STOPPED TAKING THE NICOTINE GUM [facility] Work Phone: Start: 03-18-2023 End: 04-07-2023 Tobacco smoking status NHIS Ex-smoker [facility] End: 06-09-2012 History of tobacco use Current smoker [facility] Work Phone: End: 06-09-2012 History of tobacco use Cigarette Smoker [facility] Work Phone: Start: 04-07-2023 Tobacco Comment STOPPED TAKING THE NICOTINE GUM 02/2023 [facility] Work Phone: Tobacco smoking status NHIS Tobacco smoking consumption unknown [facility] Work Phone: NEGATED: Highlighted row - - [facility] Work Phone: NEGATED: Highlighted rowStart: NINF History of tobacco use Passive smoker [facility] Work Phone: Functional Status Date Assessment Result Facility NEGATED: Highlighted row Functional performance Functional status health issues are not documented [facility] Work Phone: Mental Status Date Assessment Result Facility NEGATED: Highlighted row Cognitive function [Interpretation] Cognitive status health issues are not documented [facility] Work Phone: Clinical Notes 06-09-2019 to 04-28-2023 Veronique Morrow PA-C - 04/28/2023 11:00 AM Emilia Morrow PA-C - 04/16/2023 10:20 AM Tawana Salas DO - 04/15/2023 8:00 AM LEIGH Seo 04/14/2023 1:40 PM EST Note Date & [...] suspicion for pleurisy - started on medrol. [place] was done and referred for PFT and [...] History: Procedure Laterality Date CARDIAC CATHETERIZATION 03/27/2023 CHRISTIANDR. SHI CARDIAC CATHETERIZATION N/A 03/27/2023 Procedure: Left Heart Cath; Surgeon: Devon Shi MD; Location: [facility] Cardiac Mirror Painter; Service: Cardiovascular; Laterality: N/A; OTHER SURGICAL HISTORY [...] like second opinion - dr smith in [place] documented in this encounter [facility] Work Phone: 04-16-2023 History of Presen t illness Narrative Subjective Patient ID: Mravel Denis is a 68 y.o. male who [...] suspicion for pleurisy - started on medrol. [place] was done and referred for PFT and [...] Heart Cath; Surgeon: Devon Shi MD; Location: [facility] Cardiac Mirror Painter; Service: Cardiovascular; Laterality: N/A; OTHER SURGICAL HISTORY [...] to gen surgeon - dr borrego in [place] - RUQ pain - r/o acalculous cholecystitis - slight gallbladder sludge noted on US in [place] however other imaging - CT/HIDA scan done in [place] did not show concern for the gallbaldder documented in this encounter [facility] Work Phone: 04-15-2023 History of Presen t [...] and medication for hyperlipidemia started by his aluminum pourer recently who did his heart cath. Patient [...] breath. This note was transcribed using the [employer] Dictation system. There may be grammatical, punctuation, or verbiage errors that occur with voice recognition programs. documented in this encounter [facility] Work Phone: 04-14-2023 History of Presen t [...] suspicion for pleurisy - started on medrol. [place] was done and referred for PFT and [...] History: Procedure Laterality Date CARDIAC CATHETERIZATION 03/27/2023 CHRISTIANLORETA SHI CARDIAC CATHETERIZATION N/A 03/27/2023 Procedure: Left Heart Cath; Surgeon: Devon Shi MD; Location: [facility] Cardiac Mirror Painter; Service: Cardiovascular; Laterality: N/A; OTHER SURGICAL HISTORY [...] GI/chest pain check documented in this encounter [facility] Work Phone: 04-03-2023 History of Presen t [...] follow up visit set with cardio on fri R tonsillar mass/ lump x years Pt [...] History: Procedure Laterality Date CARDIAC CATHETERIZATION 03/27/2023 [facility] SHI CARDIAC CATHETERIZATION N/A 03/27/2023 Procedure: Left Heart Cath; Surgeon: Devon Shi MD; Location: [facility] Cardiac Mirror Painter; Service: Cardiovascular; Laterality: N/A; OTHER SURGICAL HISTORY [...] pain r/o malignancy Appointment with cardio on fri - please make sure he has his [...] of his symptoms documented in this encounter [facility] Work Phone: 03-04-2023 History of Presen t [...] of with initial medicare with labs at [facility] fasting and med check documented in this encounter [facility] Work Phone: 02-18-2023 History of Presen t illness Narrative Subjective Patient ID: Marvel Denis is a 67 y.o. male who presents for Follow-up (FOLLOW UP ON TESTING AND [facility]/PT STATES HE DID HAVE HIS US DONE AT [place] BUT NOT HIS CT DONE BECAUSE THEY COULDN'T GET HIM IN UNTIL MARCH.) HPI Testing at [place] - Labs - cardiac calcium score - [...] we set up cardiac calcium score in [place] - order placed 02/03 documented in this encounter [facility] Work Phone: 02-03-2023 History of Presen t [...] FU in few weeks with labs at [facility] abd RUQ pain - hx of alcohol - r.o chirrhosis, liver mass, cholelithiasis Cardiac calcium score documented in this encounter [facility] Work Phone: 11-24-2022 Note Patient Name: Marvel Denis Procedure Date: 09/05/2022 9:05 AM Date of : 1955 Admit Type: Outpatient Site: [facility] Proc 1 Ethnicity: Not or Race: White Attending MD: Tim Crespo MD, [id number] Procedure: Colonoscopy Indications: High risk colon cancer [...] previously scheduled. Procedure Code(s): --- Professional --- 01648, Colonoscopy, flexible; with removal of tumor(s), polyp(s), or other lesion(s) by snare technique G0500, Moderate sedation services provided by the same (more content not included)... PROVATION - 09-17-2022 Evaluation + Plan note Associated Problem(s): Chronic pain of right knee Xray ordered [facility] Work Phone: 09-17-2022 Evaluation + Plan note Associated Problem(s): Memory impairment September 2022 [facility] dementia screen score of 0 Consider MRI brain or neuro referral- will call if he wishes to pursue [facility] Work Phone: 09-17-2022 Miscellaneous Notes Associated Problem(s): Chronic pain of right knee Xray ordered Associated Problem(s): Memory impairment September 2022 [facility] [...] benefit of ACEI documented in this encounter [facility] Work Phone: 09-17-2022 Evaluation + Plan note Associated Problem(s): Decreased hearing of both ears Declines referral at this time [facility] Work Phone: 09-17-2022 Evaluation + Plan note Associated Problem(s): Class 1 obesity due to excess calories with serious comorbidity and body mass index (BMI) of 33.0 to 33.9 in adult Mindful of diet and ex [facility] Work Phone: 09-17-2022 Evaluation + Plan note Associated Problem(s): Neuropathy Discussed diabetic induced, alcohol induced, further testing, pod referral, trial of meds - will monitor [facility] Work Phone: 09-17-2022 Evaluation + Plan note Associated Problem(s): Mixed hyperlipidemia Hx of elevated LFT with statin use Mindful of diet and ex [facility] Work Phone: 09-17-2022 Evaluation + Plan note Associated Problem(s): Type 2 diabetes mellitus with hyperglycemia (CMS/HCC) Stable with diet and ex [facility] Work Phone: 09-17-2022 Evaluation + Plan note Associated Problem(s): Hypertension associated with diabetes ([facility]) Stable with diet and ex Discussed benefit of ACEI T [facility] Work Phone: 09-17-2022 History of Presen t [...] Testing Reviewed labs September 03, 2022 [facility] Assessment/Plan [facility] 1) COMPLEXITY: MORE THAN 1 STABLE CHRONIC [...] will monitor Circulatory Hypertension associated with diabetes (CMS/HCC) Current Assessment & Plan Stable with diet and ex Discussed benefit of ACEI Musculoskeletal Chronic pain of right knee Current Assessment & Plan Xray ordered Endocrine/Metabolic Type 2 diabetes mellitus with hyperglycemia (CMS/HCC) Current Assessment & Plan Stable with diet [...] impairment Current Assessment & Plan September 2022- [facility] dementia screen score of 0 Consider MRI brain or neuro referral- will call if he wishes to pursue Other Visit Diagnoses Welcome to Medicare preventive visit - Primary Advanced care planning/counseling discussion FU in 6 mo with labs at [facility] fasting and med check documented in this encounter [facility] Work Phone: 06-09-2019 History of Presen t [...] - repeat in 3 years -[facility] Work Phone: 06-09-2019 History of [...] -jan 2017 - repeat in 3 years [facility] Work Phone: documented in this encounter [facility] Work Phone: Evaluation note* Diagnosis RUQ abdominal [...] alcohol dependence (CMS/HCC) documented in this encounter [facility] Work Phone: Evaluation note* Diagnosis RUQ abdominal pain- Primary Abdominal pain, right upper quadrant Gallbladder sludge Acute cough Hypertension associated with diabetes (CMS/HCC) Unspecified essential hypertension Overweight (BMI 25.0-29.9) Overweight Type 2 diabetes mellitus with hyperglycemia, without long-term current use of insulin (CMS/HCC) History of alcohol dependence (CMS/HCC) Fatty liver Other chronic nonalcoholic liver disease documented in this encounter [facility] Work Phone: Evaluation note* Diagnosis Abnormal screening [...] right upper quadrant documented in this encounter [facility] Work Phone: Evaluation note* Diagnosis SOB (shortness of breath) Shortness of breath Pleurisy Pleurisy without mention of effusion or current tuberculosis documented in this encounter [facility] Work Phone: Evaluation note* Diagnosis Fatty liver Other chronic nonalcoholic liver disease RUQ abdominal pain Abdominal pain, right upper quadrant Gallbladder sludge Diverticular disease of colon Diverticulosis of colon (without mention of hemorrhage) RLQ abdominal pain Abdominal pain, right lower quadrant documented in this encounter [facility] Work Phone: Evaluation note* Diagnosis Pleural effusion [...] quadrant Gallbladder sludge documented in this encounter [facility] Work Phone: Evaluation note* Diagnosis Centrilobular emphysema (CMS/HCC) Pleural effusion on right Unspecified pleural effusion documented in this encounter [facility] Work Phone: Evaluation note* Diagnosis Pleural effusion on right- Primary Unspecified pleural effusion Hypertension associated with diabetes (CMS/HCC) Unspecified essential hypertension Overweight (BMI 25.0-29.9) Overweight Fatty liver Other chronic nonalcoholic liver disease Centrilobular emphysema (CMS/HCC) Lung nodule Other diseases of lung, not elsewhere classified RUQ abdominal pain Abdominal pain, right upper quadrant Gallbladder sludge documented in this encounter [facility] Work Phone: Evaluation note* Diagnosis Centrilobular emphysema (CMS/HCC)- Primary Pleural effusion on right Unspecified pleural effusion Lung nodule Other diseases of lung, not elsewhere classified documented in this encounter [facility] Work Phone: Evaluation note* Diagnosis Gallbladder sludge- [...] Unspecified pleural effusion documented in this encounter [facility] Work Phone: Evaluation note* Diagnosis Pleural effusion [...] nonalcoholic liver disease documented in this encounter [facility] Work Phone: Evaluation note* Diagnosis Centrilobular emphysema (CMS/HCC) Pleural effusion on right Unspecified pleural effusion documented in this encounter [facility] Work Phone: Evaluation note* Diagnosis Personal history of colonic polyps Encounter for screening for malignant neoplasm of colon Benign neoplasm of descending colon Polyp of colon Benign neoplasm of colon Diverticulosis of large intestine without perforation or abscess without bleeding documented in this encounter [facility] Work Phone: Evaluation note* Diagnosis Fatty liver Other chronic nonalcoholic liver disease RUQ abdominal pain Abdominal pain, right upper quadrant Gallbladder sludge Diverticular disease of colon Diverticulosis of colon (without mention of hemorrhage) RLQ abdominal pain Abdominal pain, right lower quadrant documented in this encounter [facility] Work Phone: Evaluation note* Diagnosis SOB (shortness of breath) Shortness of breath Pleurisy Pleurisy without mention of effusion or current tuberculosis documented in this encounter [facility] Work Phone: Reason for referral (narrative)* Consultation (Routine) - Pending Review Specialty Diagnoses / Procedures Referred By Flako pastor Referred To Contact Cardiology Diagnoses Abnormal screening cardiac CT Hypertension associated with diabetes (CMS/HCC) Procedures GA OFFICE/OUTPATIENT NEW HIGH MDM 60-74 MINUTES Veronique Morrow PA-C [address] [place] [address] Referral ID Status Reason Start Date Expiration Date Visits Requested Visits Authorized [id number] Pending Review Specialty Services Required 03/04/2023 08/31/2023 1 1 [facility] Work Phone: Reason for referral (narrative)* Consultation (Routine) - Authorized Specialty Diagnoses / Procedures Referred By Contac t Referred To Contact General Surgery Diagnoses Gallbladder sludge RUQ abdominal pain Veronique Morrow PA-C [address] [place] [address] Referral ID Status Reason Start Date Expiration Date Visits Requested Visits Authorized [id number] Authorized Specialty Services Required 04/16/2023 04/15/2024 1 1 [facility] Work Phone: Reofsh for referral (narrative)* Consultation (Routine) - Authorized Specialty Diagnoses / Procedures Referred By Flako pastor Referred To Contact Pulmonary Disease / Pulmonology Diagnoses Centrilobular emphysema (CMS/HCC) Lung nodule Pleural effusion on right SOB (shortness of breath) RUQ abdominal pain Veronique Morrow PA-C [address] [place] [id number] Referral ID Status Reason Start Date Expiration Date Visits Requested Visits Authorized [id number] Authorized Specialty Services Required 04/27/2024 1 1 [facility] Work Phone: Summary Purpose Family History No Family History Records Found Mother Name Dates Details Family history of malignant neoplasm of breast(V16.3, Z80.3) Status:Active Father Name Dates Details Family history of diabetes m ellitus(V18.0, Z83.3) Status:Active Family history of Type 2 marielle betes mellitus without complication, unspecified whether continuous churn buttermaker insulin use(250.00, E11.9) Status:Active Mother Name Dates Details Family history of malignant neoplasm of breast(V16.3, Z80.3) Status:Active Father Name Dates Details Family history of diabetes m ellitus(V18.0, Z83.3) Status:Active Family history of Type 2 marielle betes mellitus without complication, unspecified whether group home insulin use(250.00, E11.9) Status:Active Mother Name Dates [...] Contact Radiology Diagnoses Hypertension associated with diabetes ([facility]) Type 2 diabetes mellitus with hyperglycemia, without long-term current use of insulin ([facility]) Procedures CT cardiac scoring wo IV contrast Veronique Morrow PA-C [address] [place] [address] Referral ID Status Reason Start Date Expiration Date Visits Requested Visits Authorized [id number] Authorized Perform Procedure 02/03/2023 08/02/2023 1 1 Specialty Diagnoses / Procedures Referred By Contac t Referred To Contact Radiology Diagnoses RUQ abdominal pain Procedures US abdomen complete Veronique Morrow PA-C [address] [place] [address] Referral ID Status Reason Start Date Expiration Date Visits Requested Visits Authorized [id number] Authorized Perform Procedure 02/03/2023 08/02/2023 1 1 Specialty Diagnoses / Procedures Referred By Contac t Referred To Contact Radiology Diagnoses RUQ abdominal pain Gallbladder sludge Procedures NM hepatobiliary Veronique Morrow PA-C [address] [place] [address] Referral ID Status Reason Start Date Expiration Date Visits Requested Visits Authorized [id number] Authorized Perform Procedure 02/18/2023 08/17/2023 3 3 Specialty Diagnoses / Procedures Referred By Contac t Referred To Contact Diagnoses SOB (shortness of breath) Pleurisy Procedures Pulmonary function testing Veronique Morrow PA-C [address] [place] [address] Referral ID Status Reason Start Date Expiration Date V isits Requested Visits Authorized [id number] Pending Review 03/27/2023 03/26/2024 1 1 Specialty Diagnoses / Procedures Referred By Contac t Referred To Contact Radiology Diagnoses Fatty liver RUQ abdominal pain Gallbladder sludge Diverticular disease of colon RLQ abdominal pain Procedures CT abdomen pelvis w IV contrast Veronique Morrow PA-C [address] [place] [address] Referral ID Status Reason Start Date Expiration Date Visits Requested Visits Authorized [id number] Pending Review Perform Procedure 3 03/30/2024 1 1 Specialty Diagnoses / Procedures Referred By Contac t Referred To Contact Radiology Diagnoses Centrilobular emphysema (CMS/HCC) Pleural effusion on right Procedures CT chest w IV contrast Veronique Morrow PA-C [address] [place] [phone] Referral ID Status Reason Start Date Expiration Date Visits Requested Visits Authorized [id number] Pending Review Perform Procedure 3 04/02/2024 1 1 Specialty Diagnoses / Procedures Referred By Contac t Referred To Contact Diagnoses Centrilobular emphysema (CMS/HCC) Veronique Morrow PA-C [address] [place] [address] Referral ID Status Reason Start Date Expiration Date V isits Requested Visits Authorized [id number] Pending Review 1 1 Specialty Diagnoses / Procedures Referred By Contac t Referred To Contact Radiology Diagnoses Centrilobular emphysema (CMS/HCC) Pleural effusion on right Procedures CT chest w IV contrast Veronique Morrow PA-C [address] [place] [address] [facility] [address] [place] [address] Specialty Diagnoses / Procedures Referred By Contac t Referred To Contact Radiology Diagnoses Pleural effusion on right Lung nodule Procedures CT chest wo IV contrast Cristhian, Veronique B, PA-C [address] [place] [address] Referral ID Status Reason Start Date Expiration Date Visits Requested Visits Authorized [id number] Pending Review Perform Procedure 04/15/2023 04/14/2024 1 1 Additional Source Comments (unrecognized sect ion and content) No Status Records FoundNo Status Records FoundNo Status Records FoundNo Status Records FoundNo Status Records FoundNo Status Records FoundNo Status Records FoundNo Status Records FoundNo Status Records Found INFORMATION SOURCE (unrecogn ized section and content) DATE CREATED AUTHOR AUTHOR'S ORGANIZ ATION 01/06/2019 [facility] DATE CREATED AUTHOR AUTHOR'S ORGANIZ ATION 08/29/2022 [email or web address] DATE CREATED AUTHOR AUTHOR'S ORGANIZ ATION 09/18/2022 [facility] DATE CREATED AUTHOR AUTHOR'S ORGANIZ ATION 03/02/2023 [facility] DATE CREATED AUTHOR AUTHOR'S ORGANIZ ATION 04/30/2023 [facility] DATE CREATED AUTHOR AUTHOR'S ORGANIZ ATION 06/04/2023 [facility] DATE CREATED AUTHOR AUTHOR'S ORGANIZ ATION 07/12/2023 [facility] DATE CREATED AUTHOR AUTHOR'S ORGANIZ ATION 07/21/2023 [facility] Reason for Visit (unrecogniz ed section and content) Reason Comments LIVER PAIN RIGHT BELOW RIB S ON RIGHT SIDE IN KIDNEY AREA SHOULDERS AND LUNGS X 3 WEEKS Reason Comments Follow-up FOLLOW UP ON TESTING AND [place] [employer] [facility] [facility] STATES HE DID HAVE HIS US DONE AT [facility] BUT NOT HIS CT DONE BECAUSE THEY COULDN'T GET HIM IN UNTIL MARCH. Reason Comments Follow-up F/U ON CARDIAC CALCI UM SCORE TEST AND SCANPT HAS NOT SEEN THE CARDIO SPECIALIST YET AND HAS QUESTIONS ON IF HE CAN DO PROJECTS AT HOME STILL OR WAIT. Specialty Diagnoses / Procedures Referred By Contdiamante t Referred To Contact Diagnoses SOB (shortness of breath) Pleurisy Procedures Pulmonary function testing Veronique Morrow PA-C [address] [place] [address] Referral ID Status Reason Start Date Expiration Date V isits Requested Visits Authorized [id number] Pending Review 03/27/2023 03/26/2024 1 1 Specialty Diagnoses / Procedures Referred By Contac t Referred To Contact Radiology Diagnoses Fatty liver RUQ abdominal pain Gallbladder sludge Diverticular disease of colon RLQ abdominal pain Procedures CT abdomen pelvis w and wo IV contrast Veronique Morrow PA-C [address] [place] [address] [facility] [address] [place] [address] Referral ID Status Reason Start Date Expiration Date Visits Requested Visits Authorized [id number] Canceled Perform Procedure 3 03/26/2024 1 1 Reason Comments Follow-up F/U WITH CT AND [facility] THING TESTS Specialty Diagnoses / Procedures Referred By Contac t Referred To Contact Radiology Diagnoses Centrilobular emphysema (CMS/HCC) Pleural effusion on right Procedures CT chest w IV contrast Veronique Morrow PA-C [address] [place] [address] [facility] [address] [place] [address] Referral ID Status Reason Start Date Expiration Date Visits Requested Visits Authorized [id number] Pending Review Perform Procedure 3 04/02/2024 1 1 Reason Comments Follow-up 3-6 WEEK F/U AFTER C T Reason Comments Cough Lung Nodule Found on CT Chest Pain Specialty Diagnoses / Procedures Referred By Contac t Referred To Contact Pulmonary Disease / Pulmonology Diagnoses Acute cough Pleural effusion on right Centrilobular emphysema (CMS/HCC) Lung nodule Veronique Morrow PA-C [address] [place] [phone] Marvel Salas DO [address] [place] [phone] Referral ID Status Reason Start Date Expiration Date Visits Requested Visits Authorized [id number] Authorized Specialty Services Required 04/10/2023 04/09/2024 1 1 Reason Comments Follow-up F/U FOR PULM APPT YE STERDAY Reason Comments Follow-up 2 WK F/U AFTER SEEIN G SURGEON; NOT USING STILOTO INHALER PER PULM DOCTOR Reason Comments Other Personal history of colonic polyps Care Teams (unrecognized sec tion and content) Geriatric Nurse Practitioner Relationship Specialty Start Date End Date Veronique Morrow PA-C [address] [place] [phone] PCP - General 03/27/17 Nena Salians MD [address] [place] [address] Office [place] [phone] PCP - [employer] PCP 03/09/22 Geriatric Nurse Practitioner Relationship Specialty Start Date End Date Veronique Morrow PA-C [address] [place] [phone] PCP - General 03/27/17 Nena Salinas MD [address] [place] [phone] PCP - [employer] PCP 03/09/22 Geriatric Nurse Practitioner Relationship Specialty Start Date End Date Veronique Morrow PA-C [address] [place] [phone] PCP - General 03/27/17 Nena Salinas MD [address] [place] [address] PCP - [employer] PCP 03/09/22 Geriatric Nurse Practitioner Relationship Specialty Start Date End Date Veronique Morrow PA-C [address] [place] [address] PCP - General 03/27/17 Nena Salinas MD [address] [place] [address] PCP - [employer] PCP 03/09/22 Geriatric Nurse Practitioner Relationship Specialty Start Date End Date Veronique Morrow PA-C [address] [place] [address] PCP - General 03/27/17 Nena Sailnas MD [address] [place] [id number] PCP - [employer] PCP 03/09/22 Geriatric Nurse Practitioner Relationship Specialty Start Date End Date Veronique Morrow PA-C [address] [place] [address] PCP - General 03/27/17 Nena Salinas MD [address] [place], [place] [phone] PCP - [employer] PCP 03/09/22 Geriatric Nurse Practitioner Relationship Specialty Start Date End Date Veronique Morrow PA-C [address] [place] [address] PCP - General 03/27/17 Nena Salinas MD [address] [place] [address] PCP - [employer] PCP 03/09/22 Geriatric Nurse Practitioner Relationship Specialty Start Date End Date Veronique Morrow PA-C [address] [place] [place] [address] PCP - General 03/27/17 Nena Salinas MD [address] [place] [phone] PCP - [employer] PCP 03/09/22 Geriatric Nurse Practitioner Relationship Specialty Start Date End Date Veronique Morrow PA-C [address] [place] [phone] PCP - General 03/27/17 Nena Salinas MD [address] [place] [address] [place] [phone] PCP - [employer] PCP 03/09/22 Geriatric Nurse Practitioner Relationship Specialty Start Date End Date Veronique Morrow PA-C [address] [place] [address] PCP - General 03/27/17 Nena Salinas MD [address] [place] [phone] PCP - [employer] PCP 03/09/22 Geriatric Nurse Practitioner Relationship Specialty Start Date End Date Veronique Morrow PA-C [address] [place] [address] PCP - General 03/27/17 Nena Salinas MD [address] [place] [address] PCP - [employer] PCP 03/09/22 Geriatric Nurse Practitioner Relationship Specialty Start Date End Date Veronique Morrow PA-C [address] [place] [address] PCP - General 03/27/17 Nena Salinas MD [address] [place] [address] PCP - [employer]age PCP 03/09/22 [...] BE BASED ON THE PRIMARY CLINICAL RECORDS. [employer] provides no warranty or guarantee of the accuracy or completeness of information in this document.
[2023-07-23 11:00] VITALS: BP 135/74; PULSE 86; RESP 18; TEMP 37; O2SAT 98
[2023-07-23 11:15] VITALS: BP 133/82; PULSE 78; RESP 18; O2SAT 97
[2023-07-23] MEDS: Lidocaine 2% (20 ml mdv) 20 ML Vial INFILT (11:15)
[2023-07-23 11:30] VITALS: BP 147/85; PULSE 80; RESP 18; O2SAT 96
[2023-07-23 11:35] VITALS: BP 146/77; PULSE 78; RESP 18; O2SAT 97
--- NOTE | 2023-07-23 11:35 | RAD_ITS ---
STUDY: X-RAY CHEST REASON FOR EXAM: Male, 68 years old. Post thora TECHNIQUE: AP inspiration and expiration views. COMPARISON: None. FINDINGS: No evidence of pneumothorax following the thoracentesis. RAD/Chest Insp/Exp 2 View IMPRESSION: No evidence of pneumothorax following the thoracentesis. Electronically Signed: Enzo Collins MD at 13:00 EST ,
[2023-07-23 11:50] VITALS: BP 130/65; PULSE 74; RESP 16; O2SAT 96
[2023-07-23 12:01] LABS: Cytology, Body Fluid / CSF SEE PATHOLOGY REPORT
[2023-07-23 13:04] LABS: LDH,Body Fluid 304 Units/L (Not Establ.)
[2023-07-23 13:28] LABS: Body Fluid Mononuclear WBC # 2.717 10^3/uL; Body Fluid Mononuclear WBC % 91.8 %; Body Fluid Polynuclear WBC # 0.242 10^3/uL; Body Fluid Polynuclear WBC % 8.2 %; Body Fluid Total Cells Counted 3.306 10^3/ul; Red Cell Count/Body Fluid 0.014 10^6/ul; White Blood Count/Body Fluid 2.959 10^3/uL
[2023-07-23 13:36] LABS: Auto B Fluid Analyzer BKGD Ct COUNTS W/IN LIMITS (W/IN LIMITS); Source- Body Fluid THORACENTESIS
[2023-07-23 13:38] LABS: Appearance/Body Fluid CLOUDY
[2023-07-23 14:19] LABS: Lymphocytes 41 %; Neutrophil (Segs) 3 %; Other Cell Type/BF 56 %
[2023-07-23 14:36] LABS: Body Fluid QC Type(s) BF1Q
[2023-07-25 12:15] LABS: Pathologist Comment/Body Fluid Reviewed
== END | disposition home or self-care (01) ==
LOC: US 10:19
PROVIDERS: PCP Physician Assistant Medical; Referring Provider Internal Medicine Pulmonary Disease; Visit Provider Internal Medicine Pulmonary Disease
DX: C34.90 Malignant neoplasm of unspecified part of unspecified bronchus or lung (principal); J90 Pleural effusion, not elsewhere classified; R06.02 Shortness of breath
CPT/HCPCS: 32555; 71046; 83615; 87015; 87070; 87075; 87101; 87116; 87205; 87206; 88108; 88305; 88313; 88341; 88342; 89050

== ENCOUNTER → 2023-09-03 | Outpatient (CLI) | payer MEDICARE, SELFPAY ==
--- NOTE | 2023-09-03 08:02 | US_ITS ---
STUDY: SUPERFICIAL ULTRASOUND - ASSESSMENT OF PLEURAL EFFUSIONS. REASON FOR EXAM: Male, 68 years old. MALIGNANT NEOPLASM LOWER LOBE -- SOB TECHNIQUE: A superficial ultrasound was performed with real-time and static billingsley-scale imaging. COMPARISON: None. FINDINGS: Not enough fluid for thoracentesis. US/Chest IMPRESSION: Not enough fluid for thoracentesis. Electronically Signed: Enzo Collins MD at 15:18 EDT ,
[2023-09-03 08:52] VITALS: BP 129/75; PULSE 76; RESP 18; TEMP 36.6; O2SAT 95
== END | disposition home or self-care (01) ==
LOC: US 08:02
PROVIDERS: PCP Physician Assistant Medical; Referring Provider Internal Medicine Hematology & Oncology; Visit Provider Internal Medicine Hematology & Oncology
DX: C34.31 Malignant neoplasm of lower lobe, right bronchus or lung (principal); J91.0 Malignant pleural effusion
CPT/HCPCS: 76604

== ENCOUNTER 2023-10-02 08:54 | Emergency (ER) | payer MEDICARE, SELFPAY ==
[2023-10-02 08:54] VITALS: BP 153/83; PULSE 85; RESP 14; TEMP 36.1; O2SAT 96; BMI 30.4
--- NOTE | 2023-10-02 09:12 | CT_ITS ---
STUDY: CT BRAIN WITHOUT CONTRAST REASON FOR EXAM: Male, 68 years old. Laceration over the left orbital region following a fall. RADIATION DOSAGE (If Supplied By Facility): CTDIvol = ( 44.99 ) mGy, DLP = ( 812.98 ) mGycm TECHNIQUE: Transaxial CT imaging of the brain was performed without administration of intravenous contrast material. Individualized dose optimization techniques were used for this CT. COMPARISON: No relevant priors. FINDINGS: Normal soft tissue structures. Normal calvarium. There is mild cerebral atrophy with widening of the extra-axial spaces and ventricular dilatation. Normal white matter tracts of the cerebral hemispheres. Normal basal ganglia and thalami. Normal brainstem. Normal cerebellum. There is no intracranial hemorrhage. There are no findings of an acute ischemic infarction. Atherosclerotic plaque formation of the cavernous portions of the internal carotid arteries bilaterally. Normal visualized paranasal sinuses. CT/Brain/Head without Contrast IMPRESSION: Chronic involutional changes of the brain. Electronically Signed: Enzo Collins MD at 9:36 EDT ,
--- NOTE | 2023-10-02 09:15 | EX.ED.GENINJ ---
HPI History of Present Illness Chief Complaint: Laceration Informant: patient Narrative Narrative: 68-year-old male presenting to the emergency room with a fall. Patient was in outpatient radiology for scheduled thoracentesis. He was leaving the hospital when he fell off the curb. States he fell forward. He notes injury to the left lateral hand, left lower ribs, and laceration to the head. He states he bent his glasses which she believes caused the laceration to the left eyebrow region. No loss of consciousness. He does not know when his last tetanus was and he does not wish this to be updated. Patient states that he does not want his cut stone because I am tired of needles today. Tetanus Immunization: Unknown [facility] Medical History Constipation COPD (chronic obstructive pulmonary disease) Gout High cholesterol HTN (hypertension) Home Medications albuterol sulfate 90 mcg/actuation aerosol inhaler (Ventolin HFA) 2 puff inhalation Q6H PRN 04/24/23 [History Last Taken Unknown] atorvastatin 40 mg tablet 40 mg PO DAILY 04/24/23 [History Last Taken Unknown] metoprolol succinate 25 mg tablet,extended release 24 hr 25 mg PO DAILY 04/24/23 [History Last Taken Unknown] naproxen sodium 220 mg capsule (Aleve) 220 mg PO BID PRN pain 04/24/23 [History Last Taken Unknown] tiotropium 2.5 mcg-olodaterol 2.5 mcg/actuation mist for inhalation (Stiolto Respimat) inhalation 04/24/23 [History Last Taken Unknown] tiotropium bromide 2.5 mcg/actuation mist for inhalation (Spiriva Respimat) 2 inh inhalation QAM 04/24/23 [History Last Taken Unknown] oxycodone 5 mg tablet 5 mg PO Q6H PRN pain 3 days #12 tabs 10/02/23 [Rx Last Taken Unknown] Allergy/AdvReac Type Severity Reaction Status Date / Time No Known Allergies Allergy Verified 10/02/23 08:55 Family History Mother Breast cancer Father Diabetes Surgical History S/P hernia repair S/P right heart catheterization S/P tonsillectomy Social History Smoking Status: Former smoker alcohol intake: former ROS ROS ED Constitutional Constitutional ED: Denies chills, fever(s) or weight loss Eyes Eyes: Denies change in vision or diplopia ENT ENT ED: Denies ear pain, rhinorrhea or sore throat Cardiovascular Cardiovascular: Reports chest pain; Denies orthopnea, palpitations or racing heartbeat Respiratory/Chest Respiratory/Chest: Denies cough, dyspnea or orthopnea Gastrointestinal Gastrointestinal: Denies abdominal pain, diarrhea, nausea or vomiting Genitourinary Genitourinary ED: Denies dysuria, hematuria or urinary frequency Musculoskeletal Musculoskeletal: Reports other Details: Left hand pain ; Denies arthralgias, back pain, myalgias or neck pain Integumentary Reports other Details: Left eyebrow laceration ; Denies abscess or rash Neurologic Neurologic: Denies headache(s) or weakness Psychiatric Psychiatric: Denies anxiety, depression, suicidal ideation or suicidal thoughts Endocrine Endocrinology: Denies polydipsia, polyphagia or polyuria Allergic/Immunologic Allergic/Immunologic ED: Denies mouth swelling, tongue swelling or urticaria EXAM Physical Exam Const Vital Signs: 10/02/23 08:54 10/02/23 10:54 Temperature 97 F L Temperature Source Temporal Pulse Rate 85 82 Respiratory Rate 14 18 Blood Pressure 153/83 H 146/78 H Blood Pressure Mean 106 100 Pulse Ox 96 94 Oxygen Delivery Method Room Air Room Air Positive well nourished and well developed General Appearance ED: well developed HEENT Reports normocephalic and moist mucous membranes HEENT Narrative: There is a 2 cm T-shaped laceration to the lateral left face just lateral to the eyebrow. No significant periorbital swelling. No palpable depressions. Extraocular motions are intact. Bleeding controlled. Eyes PERRL and EOMs intact bilaterally Neck no lymphadenopathy, supple and no JVD Chest Wall Chest Narrative: Mild tenderness to palpation over the left lower anterior lateral ribs. No palpable crepitance.. Equal breath sounds. Resp normal respiratory effort and clear to auscultation bilaterally Cardio regular rate, regular rhythm and no murmurs GI normal to inspection, nondistended, normoactive bowel sounds and non-tender Palpation: soft Back/Spine no CVA tenderness and normal ROM Extremity Extremity Narrative: Left medial dorsum of the hand demonstrates some mild ecchymosis and swelling. There is palpable tenderness palpation along the fourth and fifth metatarsal. No obvious deformity. Neurovascular intact. Tendon function appears normal. General Extremety ED: Negative for edema General Extremity: Negative for edema Neuro oriented x3 and CN's II-XII intact bilaterally Sensorium / Orientation: alert Motor Exam: strength 5/5 throughout Psych mental status grossly normal Mood & Affect: Negative for depressed or tearful Skin no rashes or lesions noted Skin Narrative: see HENT exam MDM MDM MDM Narrative Medical decision making narrative: CT the brain shows no acute hemorrhage or fracture. My independent interpretation of the plain films of the left chest with ribs is no acute fracture. Magnapen interpretation of the plain films of the left hand is an acute fracture at the base of the fifth metacarpal. Patient received oxycodone for pain which improved his symptoms Let was applied to the wound. After ample time the wound was washed with Shur-Clens and explored. 1% lidocaine was used to further anesthetize the wound. No foreign bodies were seen. Wound was closed using 4 simple interrupted 5-0 Ethilon sutures. The left hand was placed in a well-padded plaster ulnar gutter splint made by this physician. Neurovascular intact pre and post application. Patient will follow-up with primary care 5 to 7 days for suture removal. Patient will follow-up with orthopedics for further care of the metacarpal fracture. I will write for oxycodone for pain. Patient is comfortable with the plan understands instructions History & Record Review Discussion w/independent historian: Patient Radiography Diagnostic Testing: Clinical Impression(s) from Imaging Studies Brain CT 10/02/23 09:12 IMPRESSION: Chronic involutional changes of the brain. Electronically Signed: Enzo Collins MD at 9:36 EDT , Hand X-Ray 10/02/23 09:30 IMPRESSION: Normal x-ray examination of the hand. Electronically Signed: Enzo Collins MD at 9:55 EDT , ADDENDUM: 10/02/23 1013 IMPRESSION: undefined Ribs w/Chest X-Ray 10/02/23 09:30 IMPRESSION: RIBS: Normal x-ray examination of the ribs. Electronically Signed: Enzo Collins MD at 9:56 EDT , Discharge Plan Triage Chief Complaint: Laceration ED Provider: Joel Baires Dx/Rx/DC Orders Clinical Impression: Fracture of fifth metacarpal bone of left hand, Face lacerations, Chest wall contusion, Fall Instructions: ED Closed Hand Fracture (Adult), ED FACIAL LACERATION Suture Tape, ED Bruise, Rib Prescriptions: New oxycodone 5 mg tablet 5 mg PO Q6H PRN (Reason: pain) 3 Days Qty: 12 0RF No Action metoprolol succinate 25 mg tablet extended release 24 hr 25 mg PO DAILY Stiolto Respimat 2.5-2.5 mcg/actuation mist inhalation atorvastatin 40 mg tablet 40 mg PO DAILY albuterol sulfate [Ventolin HFA] 90 mcg/actuation HFA aerosol inhaler 2 puff inhalation Q6H PRN naproxen sodium [Aleve] 220 mg capsule 220 mg PO BID PRN (Reason: pain) Spiriva Respimat 2.5 mcg/actuation mist 2 inh inhalation QAM Primary Care Provider: Melinda Morrow Referrals: William Gibson MD [Med Staff - Active Staff] - As soon as possible (For orthopedics) Melinda Morrow PA [Primary Care Provider] - 5 Days for suture removal Disposition Disposition: Home, Self Care
[2023-10-02] MEDS: oxyCODONE 5 MG Tablet PO (09:18)
[2023-10-02] MEDS: Lidocaine 1% (20 ml mdv) 20 ML Vial INFILT (09:19)
[2023-10-02] MEDS: Lidocaine/Epi/Tetracaine 50 ML 1 APPLIC TOPICAL (09:23)
--- NOTE | 2023-10-02 09:30 | RAD_ITS ---
STUDY: X-RAY - UNILATERAL RIBS ( LEFT ) WITH CHEST REASON FOR EXAM: Male, 68 years old. Injury TECHNIQUE - RIBS: 4 view(s) of the ribs. TECHNIQUE - CHEST: Single PA view of the chest. COMPARISON: None. FINDINGS - RIBS: Normal visualized ribs without a demonstrated fracture. FINDINGS - CHEST: The patient is status post right thoracentesis earlier today. Mild residual atelectasis at the right lung base. RAD/Ribs Uni Min 3V w/PA Chest IMPRESSION: RIBS: Normal x-ray examination of the ribs. Electronically Signed: Enzo Collins MD at 9:56 EDT ,
--- NOTE | 2023-10-02 09:30 | RAD_ITS ---
STUDY: X-RAY - LEFT HAND REASON FOR EXAM: Male, 68 years old. Pain following a fall. TECHNIQUE: 3 view(s) of the hand. COMPARISON: None. FINDINGS: Normal radiocarpal articulation. Normal distal radioulnar joint. Normal visualized carpal bones. Normal carpal articulations Normal carpometacarpal articulation of the thumb. Normal second through fifth carpometacarpal joints. Normal metacarpi. Normal metacarpophalangeal joint of the thumb. Normal interphalangeal joint of the thumb. Normal proximal and distal phalanges of the thumb. Normal metacarpophalangeal joints of the second through fifth fingers. Normal proximal and distal interphalangeal joints of the second through fifth fingers. Normal phalanges of the second through fifth fingers. The soft tissue structures are unremarkable. RAD/Hand Min 3 Views IMPRESSION: Normal x-ray examination of the hand. Electronically Signed: Enzo Collins MD at 9:55 EDT ,
[2023-10-02 10:54] VITALS: BP 146/78; PULSE 82; RESP 18; O2SAT 94
[2023-10-02 11:18] VITALS: BP 128/73; PULSE 74; RESP 16; TEMP 36.7; O2SAT 99
== END 2023-10-02 11:19 | disposition home or self-care (01) ==
PROVIDERS: Emergency Provider Emergency Medicine; PCP Physician Assistant Medical; Visit Provider Emergency Medicine
DX: C34.31 Malignant neoplasm of lower lobe, right bronchus or lung (principal); J91.0 Malignant pleural effusion; J44.9 Chronic obstructive pulmonary disease, unspecified; Z87.891 Personal history of nicotine dependence; S62.317A Displaced fracture of base of fifth metacarpal bone, left hand, initial encounter for closed fracture; S20.20XA Contusion of thorax, unspecified, initial encounter; I10 Essential (primary) hypertension; E78.00 Pure hypercholesterolemia, unspecified; S01.112A Laceration without foreign body of left eyelid and periocular area, initial encounter; X58.XXXA Exposure to other specified factors, initial encounter; W19.XXXA Unspecified fall, initial encounter; J98.11 Atelectasis
CPT/HCPCS: 12011; 29125; 32555; 70450; 71046; 71101; 73130; 99282

== ENCOUNTER → 2023-10-02 | Outpatient (CLI) | payer MEDICARE, SELFPAY ==
[2023-10-02 08:14] VITALS: BP 113/67; PULSE 98; RESP 18; TEMP 36.6; O2SAT 96
[2023-10-02] MEDS: Lidocaine 2% (20 ml mdv) 20 ML Vial INFILT (08:19)
[2023-10-02 08:29] VITALS: BP 115/68; PULSE 91; RESP 18; O2SAT 95
[2023-10-02 08:36] VITALS: BP 118/61; PULSE 88; RESP 18; O2SAT 95
--- NOTE | 2023-10-02 08:38 | RAD_ITS ---
STUDY: X-RAY CHEST REASON FOR EXAM: Male, 68 years old. Post thora TECHNIQUE: AP inspiration and expiration views. COMPARISON: Comparison is made with prior study dated July 23, 2023. FINDINGS: The patient is status post right thoracentesis. No evidence of pneumothorax. RAD/Chest Insp/Exp 2 View IMPRESSION: Status post right thoracentesis. No evidence of pneumothorax. Electronically Signed: Enzo Collins MD at 9:03 EDT ,
--- NOTE | 2023-10-02 08:49 | PCM.OP.PRO ---
Procedure Report Date of Procedure: 10/02/23 Assessment & Plan Assessment/Plan (1) Recurrent right pleural effusion: PLAN: PROCEDURE: Ultrasound Guided Thoracentesis ORDERING PROVIDER: Dr. Farooq INDICATION: Male, 68 years old. Right pleural effusion. PROVIDER: TAI Lanza PROCEDURE: The risks, benefits, and alternatives to the procedure were explained to the patient. The specific risks of bleeding, infection, and pneumothorax requiring chest tube insertion were discussed and accepted. Written informed consent was obtained. The patient was placed in the sitting, upright position. Ultrasonographic evaluation of the bilateral lower pleural spaces was carried out. An adequate pocket was identified in the right lower pleural space.The overlying skin was prepped and draped in sterile fashion. 2% lidocaine was administered subcutaneously for local anesthesia. Under ultrasound guidance, a 5-Solomon Islander thoracentesis needle/catheter system was advanced into the right posterior lower pleural fluid collection. 1540 ml of dark yellow colored fluid was drained. The catheter was removed, and a sterile dressing was applied. The patient tolerated the procedure well. A chest x-ray was ordered. IMPRESSION: Successful ultrasound-guided thoracentesis of recurrent right pleural effusion. Procedures Radiology Radiology US Procedures: [id number] Thoracentesis
== END | disposition home or self-care (01) ==
LOC: US 07:58
PROVIDERS: PCP Physician Assistant Medical; Referring Provider Internal Medicine Hematology & Oncology; Visit Provider Internal Medicine Hematology & Oncology
DX: C34.31 Malignant neoplasm of lower lobe, right bronchus or lung (principal); J91.0 Malignant pleural effusion
CPT/HCPCS: 32555; 71046

== ENCOUNTER → 2023-10-13 | Outpatient (CLI) | payer MEDICARE, SELFPAY ==
--- NOTE | 2023-10-13 08:06 | US_ITS ---
PROCEDURE: ULTRASOUND GUIDED THORACENTESIS. DATE: October 13, 2023.. INDICATION: Male, 68 years old. Right pleural effusion. PHYSICIAN: Enzo Collins M.D. PROCEDURE: The risks, benefits, and alternatives to the procedure were explained to the patient. The specific risks of bleeding, infection, and pneumothorax requiring chest tube insertion were discussed and accepted. Written informed consent was obtained. Ultrasonographic evaluation of the right lower pleural space was carried out. An adequate pocket was identified. The patient was placed in the sitting, upright position. The overlying skin was prepped and draped in sterile fashion. 1% lidocaine was administered subcutaneously for local anesthesia. Under ultrasound guidance, a 5 Stateless thoracentesis needle/catheter system was advanced into the right posterior lower pleural fluid collection. Approximately 1560 mL of willie-colored fluid was drained. The catheter was removed, and a sterile dressing was applied. The patient tolerated the procedure well. A chest x-ray was ordered. US/Thoracentesis W US IMPRESSION: Ultrasound-guided right thoracentesis. Electronically Signed: Enzo Collins MD at 9:26 EDT ,
[2023-10-13 08:24] VITALS: BP 124/73; PULSE 82; RESP 16; TEMP 36.6; O2SAT 96
[2023-10-13] MEDS: Lidocaine 2% (20 ml mdv) 20 ML Vial INFILT (08:29)
[2023-10-13 08:39] VITALS: BP 145/70; PULSE 85; RESP 16; O2SAT 96
--- NOTE | 2023-10-13 08:45 | RAD_ITS ---
STUDY: X-RAY CHEST REASON FOR EXAM: Male, 68 years old. Post thora TECHNIQUE: AP inspiration and expiration views. COMPARISON: Comparison is made with prior study dated October 02, 2023. FINDINGS: The patient is status post right thoracentesis. No evidence of pneumothorax. Mild residual pleural-parenchymal changes are seen at the right lung base. RAD/Chest Insp/Exp 2 View IMPRESSION: Status post right thoracentesis. No evidence of pneumothorax. Electronically Signed: Enzo Collins MD at 9:23 EDT ,
[2023-10-13 08:54] VITALS: BP 137/77; PULSE 76; RESP 16; O2SAT 95
== END | disposition home or self-care (01) ==
LOC: US 07:59
PROVIDERS: PCP Physician Assistant Medical; Referring Provider Internal Medicine Hematology & Oncology; Visit Provider Internal Medicine Hematology & Oncology
DX: C34.31 Malignant neoplasm of lower lobe, right bronchus or lung (principal); J91.0 Malignant pleural effusion
CPT/HCPCS: 32555; 71046

== ENCOUNTER → 2023-10-27 | Outpatient (CLI) | payer MEDICARE, SELFPAY ==
--- NOTE | 2023-10-27 08:00 | RAD_ITS ---
STUDY: X-RAY CHEST REASON FOR EXAM: Male, 68 years old. Thoracentesis. Follow-up. TECHNIQUE: Single frontal view of the chest on 2 images. COMPARISON: October 13, 2023 FINDINGS: Stable low volume inspiration, cardiomegaly, aortic tortuosity with calcification and prominent central pulmonary arteries. Decrease in right pleural effusion compared to the prior study with no complications of thoracentesis. No abnormality of the visualized soft tissue structures of the upper abdomen. RAD/Chest Insp/Exp 2 View IMPRESSION: Decrease in right pleural effusion with no complications from thoracentesis. Electronically Signed: Chadwick Rodas MD at 9:13 EDT ,
[2023-10-27 08:25] VITALS: BP 146/79; PULSE 73; RESP 20; O2SAT 96
[2023-10-27 08:30] VITALS: BP 149/78; PULSE 75; RESP 20; O2SAT 95
[2023-10-27 08:45] VITALS: BP 169/84; PULSE 79; RESP 20; O2SAT 94
[2023-10-27 08:54] VITALS: BP 154/67; PULSE 74; RESP 20; O2SAT 94
[2023-10-27 09:00] VITALS: BP 154/73; PULSE 77; RESP 18; O2SAT 92
[2023-10-27 09:08] VITALS: BP 134/7; PULSE 68; RESP 18; O2SAT 94
--- NOTE | 2023-10-27 09:20 | PRO.PCM_ITS ---
Procedure Report Date of Procedure: 10/27/23 Assessment & Plan Assessment/Plan (1) Recurrent right pleural effusion: PLAN: PROCEDURE: Ultrasound Guided Thoracentesis ORDERING PROVIDER: [ ] INDICATION: [ ], [ ] years old. [ ]. PROVIDER: TAI Lanza PROCEDURE: The risks, benefits, and alternatives to the procedure were explained to the [ ]. The specific risks of bleeding, infection, and pneumothorax requiring chest tube insertion were discussed and accepted. Written informed consent was obtained. The patient was placed in the sitting, upright position. Ultrasonographic evaluation of the bilateral lower pleural spaces was carried out. An adequate pocket was identified in the [ ].The overlying skin was prepped and draped in sterile fashion. [ ] % lidocaine was administered subcutaneously for local anesthesia. Under ultrasound guidance, a [ ]-Arabic thoracentesis needle/catheter system was advanced into the [ ] posterior lower pleural fluid collection. [ ] ml of [ ] colored fluid was drained. The catheter was removed, and a sterile dressing was applied. The patient tolerated the procedure well. A chest x-ray was ordered. IMPRESSION: [ ]
--- NOTE | 2023-10-27 09:20 | PCM.OP.PRO ---
Procedure Report Date of Procedure: 10/27/23 Assessment & Plan Assessment/Plan (1) Recurrent right pleural effusion: PLAN: PROCEDURE: Ultrasound Guided Thoracentesis ORDERING PROVIDER: Dr. Farooq INDICATION: Male, 68 years old. Recurrent right pleural effusion. PROVIDER: TAI Lanza PROCEDURE: The risks, benefits, and alternatives to the procedure were explained to the patient. The specific risks of bleeding, infection, and pneumothorax requiring chest tube insertion were discussed and accepted. Written informed consent was obtained. The patient was placed in the sitting, upright position. Ultrasonographic evaluation of the bilateral lower pleural spaces was carried out. An adequate pocket was identified in the right lower pleural space.The overlying skin was prepped and draped in sterile fashion. 2% lidocaine was administered subcutaneously for local anesthesia. Under ultrasound guidance, a 5-[place]atorial Guinean thoracentesis needle/catheter system was advanced into the right posterior lower pleural fluid collection. 1660 ml of clear yellow colored fluid was drained. The catheter was removed, and a sterile dressing was applied. The patient tolerated the procedure well. A chest x-ray was ordered. IMPRESSION: Successful ultrasound-guided thoracentesis of recurrent right pleural effusion. Procedures Radiology Radiology US Procedures: [id number] Thoracentesis
[2023-10-27] MEDS: Lidocaine 2% (20 ml mdv) 20 ML Vial INFILT (09:37)
== END | disposition home or self-care (01) ==
LOC: US 07:57
PROVIDERS: PCP Physician Assistant Medical; Referring Provider Internal Medicine Hematology & Oncology; Visit Provider Internal Medicine Hematology & Oncology
DX: C34.31 Malignant neoplasm of lower lobe, right bronchus or lung (principal); J91.0 Malignant pleural effusion
CPT/HCPCS: 32555; 71046

== ENCOUNTER → 2023-11-07 | Outpatient (CLI) | payer MEDICARE, SELFPAY ==
[2023-11-07 09:23] VITALS: BP 146/77; PULSE 75; RESP 16; O2SAT 95
[2023-11-07] MEDS: Lidocaine 2% (20 ml mdv) 20 ML Vial INFILT (09:33)
[2023-11-07 09:38] VITALS: BP 145/86; PULSE 76; RESP 16; O2SAT 96
[2023-11-07 09:43] VITALS: BP 115/67; PULSE 76; RESP 16; O2SAT 95
--- NOTE | 2023-11-07 09:45 | RAD_ITS ---
STUDY: X-RAY CHEST REASON FOR EXAM: Male, 68 years old. Post thoracentesis TECHNIQUE: AP inspiration and expiration views were obtained following a right thoracentesis. COMPARISON: Comparison is made with prior study dated October 27, 2023. FINDINGS: The patient is status post right thoracentesis. There is no evidence of pneumothorax. RAD/Chest Insp/Exp 2 View IMPRESSION: No evidence of pneumothorax on the immediate post right thoracentesis. Electronically Signed: Enzo Collins MD at 10:08 EDT ,
[2023-11-07 09:58] VITALS: BP 112/66; PULSE 70; RESP 16; O2SAT 95
--- NOTE | 2023-11-07 10:41 | PCM.OP.PRO ---
Procedure Report Date of Procedure: 11/07/23 Assessment & Plan Assessment/Plan (1) Recurrent right pleural effusion: PLAN: PROCEDURE: Ultrasound Guided Thoracentesis ORDERING PROVIDER: Dr. Farooq INDICATION: Male, 68 years old. Recurrent right pleural effusion. PROVIDER: TAI Lanza PROCEDURE: The risks, benefits, and alternatives to the procedure were explained to the patient. The specific risks of bleeding, infection, and pneumothorax requiring chest tube insertion were discussed and accepted. Written informed consent was obtained. The patient was placed in the sitting, upright position. Ultrasonographic evaluation of the bilateral lower pleural spaces was carried out. An adequate pocket was identified in the right lower pleural space.The overlying skin was prepped and draped in sterile fashion. 2% lidocaine was administered subcutaneously for local anesthesia. Under ultrasound guidance, a 5-Filipino thoracentesis needle/catheter system was advanced into the right posterior lower pleural fluid collection. 1440 ml of clear yellow colored fluid was drained. The catheter was removed, and a sterile dressing was applied. The patient tolerated the procedure well. A chest x-ray was ordered. IMPRESSION: Successful ultrasound-guided thoracentesis of recurrent right pleural effusion. Procedures Radiology Radiology US Procedures: [id number] Thoracentesis
== END | disposition home or self-care (01) ==
LOC: US 09:01
PROVIDERS: PCP Physician Assistant Medical; Referring Provider Internal Medicine Hematology & Oncology; Visit Provider Internal Medicine Hematology & Oncology
DX: C34.31 Malignant neoplasm of lower lobe, right bronchus or lung (principal); J91.0 Malignant pleural effusion
CPT/HCPCS: 32555; 71046

== ENCOUNTER → 2023-11-18 | Outpatient (CLI) | payer MEDICARE, SELFPAY ==
[2023-11-18 09:08] VITALS: BP 154/81; PULSE 74; RESP 16; O2SAT 96
[2023-11-18] MEDS: Lidocaine 2% (20 ml mdv) 20 ML Vial INFILT (09:20)
[2023-11-18 09:23] VITALS: BP 151/82; PULSE 73; RESP 16; O2SAT 98
[2023-11-18 09:32] VITALS: BP 127/69; PULSE 74; RESP 16; O2SAT 98
--- NOTE | 2023-11-18 09:45 | RAD_ITS ---
STUDY: X-RAY CHEST REASON FOR EXAM: Male, 68 years old. Immediately post thoracentesis TECHNIQUE: AP inspiration and expiration views. COMPARISON: Comparison is made with prior study of November 07, 2023. FINDINGS: The patient status post right thoracentesis. There is no evidence of pneumothorax. Mild residual pleural-parenchymal changes are seen at the right lung base. RAD/Chest Insp/Exp 2 View IMPRESSION: Status post right thoracentesis. No evidence of pneumothorax. Mild degree of residual pleural parenchymal changes at the right lung base. Electronically Signed: Enzo Collins MD at 9:45 EDT ,
[2023-11-18 09:47] VITALS: PULSE 64; RESP 16; O2SAT 98
--- NOTE | 2023-11-18 10:15 | PRO.PCM_ITS ---
Procedure Report Date of Procedure: 11/18/23 Assessment & Plan Assessment/Plan (1) Recurrent right pleural effusion: PLAN: PROCEDURE: Ultrasound Guided Thoracentesis ORDERING PROVIDER: Dr. Farooq INDICATION: Male, 68 years old. Recurrent right pleural effusion. PROVIDER: TAI Lanza PROCEDURE: The risks, benefits, and alternatives to the procedure were explained to the patient. The specific risks of bleeding, infection, and pneumothorax requiring chest tube insertion were discussed and accepted. Written informed consent was obtained. The patient was placed in the sitting, upright position. Ultrasonographic evaluation of the bilateral lower pleural spaces was carried out. An adequate pocket was identified in the right lower pleural space.The overlying skin was prepped and draped in sterile fashion. 2% lidocaine was administered subcutaneously for local anesthesia. Under ultrasound guidance, a 5-Slovenian thoracentesis needle/catheter system was advanced into the right posterior lower pleural fluid collection. 1300 ml of clear yellow colored fluid was drained. The catheter was removed, and a sterile dressing was applied. The patient tolerated the procedure well. A chest x-ray was ordered. IMPRESSION: Successful ultrasound-guided thoracentesis of recurrent right pleural effusion. Procedures Radiology Radiology US Procedures: [id number] Thoracentesis
== END | disposition home or self-care (01) ==
LOC: US 08:51
PROVIDERS: PCP Physician Assistant Medical; Referring Provider Internal Medicine Hematology & Oncology; Visit Provider Internal Medicine Hematology & Oncology
DX: C34.31 Malignant neoplasm of lower lobe, right bronchus or lung (principal); J91.0 Malignant pleural effusion
CPT/HCPCS: 32555; 71046

== ENCOUNTER → 2023-11-28 | Outpatient (CLI) | payer MEDICARE, SELFPAY ==
--- NOTE | 2023-11-28 10:02 | US_ITS ---
PROCEDURE: ULTRASOUND GUIDED THORACENTESIS. DATE: November 28, 2023.. INDICATION: Male, 68 years old. Loculated right pleural effusion PHYSICIAN: Enzo Collins M.D. PROCEDURE: The risks, benefits, and alternatives to the procedure were explained to the patient. The specific risks of bleeding, infection, and pneumothorax requiring chest tube insertion were discussed and accepted. Written informed consent was obtained. Ultrasonographic evaluation of the right lower pleural space was carried out. An adequate pocket was identified. The patient was placed in the sitting, upright position. The overlying skin was prepped and draped in sterile fashion. 1% lidocaine was administered subcutaneously for local anesthesia. Under ultrasound guidance, a 5 Persian thoracentesis needle/catheter system was advanced into the right posterior lower pleural fluid collection. No fluid was drained. These fluid is loculated and is a small volume. The catheter was removed, and a sterile dressing was applied. A specimen was collected and sent to the laboratory for analysis, as requested by the referring clinician. The patient tolerated the procedure well. A chest x-ray was ordered. US/Thoracentesis W US IMPRESSION: Unsuccessful ultrasound-guided right thoracentesis. Electronically Signed: Enzo Collins MD at 10:59 EDT ,
[2023-11-28 10:16] VITALS: BP 138/73; PULSE 66; RESP 16; TEMP 36.8; O2SAT 93
[2023-11-28] MEDS: Lidocaine 2% (20 ml mdv) 20 ML Vial INFILT (10:23)
[2023-11-28 10:28] VITALS: BP 150/81; PULSE 84; RESP 16; O2SAT 96
[2023-11-28 10:30] VITALS: BP 157/81; PULSE 79; RESP 16; O2SAT 94
[2023-11-28 10:35] VITALS: BP 128/70; PULSE 71; RESP 16; O2SAT 95
--- NOTE | 2023-11-28 10:36 | RAD_ITS ---
STUDY: X-RAY CHEST REASON FOR EXAM: Male, 68 years old. Immediately post thoracentesis TECHNIQUE: AP and inspiration expiration views. COMPARISON: Comparison is made with prior study dated November 18, 2023. FINDINGS: No evidence of pneumothorax following the right thoracentesis. Mild residual pleural-parenchymal changes at the right lung base. RAD/Chest Insp/Exp 2 View IMPRESSION: No evidence of pneumothorax following the right thoracentesis. Electronically Signed: Enzo Collins MD at 10:48 EDT ,
== END | disposition home or self-care (01) ==
LOC: US 10:01
PROVIDERS: PCP Physician Assistant Medical; Visit Provider Internal Medicine Hematology & Oncology
DX: C34.31 Malignant neoplasm of lower lobe, right bronchus or lung (principal); J91.0 Malignant pleural effusion
CPT/HCPCS: 32555; 71046

== ENCOUNTER → 2023-12-02 | Outpatient (CLI) | payer MEDICARE, SELFPAY ==
[2023-12-02 08:08] VITALS: BP 153/78; PULSE 79; RESP 16; TEMP 36.8; O2SAT 96
[2023-12-02] MEDS: Lidocaine 2% (20 ml mdv) 20 ML Vial INFILT (08:15)
[2023-12-02 08:23] VITALS: BP 151/75; PULSE 75; RESP 16; O2SAT 96
[2023-12-02 08:28] VITALS: BP 150/77; PULSE 74; RESP 16; O2SAT 95
--- NOTE | 2023-12-02 08:30 | RAD_ITS ---
STUDY: X-RAY CHEST REASON FOR EXAM: Male, 68 years old. POST THORA TECHNIQUE: AP inspiration and expiration views. COMPARISON: Comparison is made with prior study dated November 28, 2023. FINDINGS: The patient is status post right thoracentesis. No evidence of pneumothorax. RAD/Chest Insp/Exp 2 View IMPRESSION: The patient is status post right thoracentesis. There is no evidence of pneumothorax. Electronically Signed: Enzo Collins MD at 8:44 EDT ,
--- NOTE | 2023-12-02 08:33 | PCM.OP.PRO ---
Procedure Report Date of Procedure: 12/02/23 Assessment & Plan Assessment/Plan (1) Recurrent right pleural effusion: PLAN: PROCEDURE: Ultrasound Guided Thoracentesis ORDERING PROVIDER: Dr. Farooq INDICATION: Male, 68 years old. Recurrent right pleural effusion. PROVIDER: TAI Lanza PROCEDURE: The risks, benefits, and alternatives to the procedure were explained to the patient. The specific risks of bleeding, infection, and pneumothorax requiring chest tube insertion were discussed and accepted. Written informed consent was obtained. The patient was placed in the sitting, upright position. Ultrasonographic evaluation of the bilateral lower pleural spaces was carried out. An adequate pocket was identified in the right lower pleural space.The overlying skin was prepped and draped in sterile fashion. 2% lidocaine was administered subcutaneously for local anesthesia. Under ultrasound guidance, a 5-Kittitian thoracentesis needle/catheter system was advanced into the right posterior lower pleural fluid collection. 1300 ml of clear yellow colored fluid was drained. The catheter was removed, and a sterile dressing was applied. The patient tolerated the procedure well. A chest x-ray was ordered. IMPRESSION: Successful ultrasound-guided thoracentesis of right pleural effusion. Procedures Radiology Radiology US Procedures: [id number] Thoracentesis
[2023-12-02 08:37] VITALS: PULSE 76; RESP 16; O2SAT 94
== END | disposition home or self-care (01) ==
LOC: US 07:58
PROVIDERS: PCP Physician Assistant Medical; Referring Provider Internal Medicine Hematology & Oncology; Visit Provider Internal Medicine Hematology & Oncology
DX: C34.31 Malignant neoplasm of lower lobe, right bronchus or lung (principal); J91.0 Malignant pleural effusion
CPT/HCPCS: 32555; 71046

== ENCOUNTER → 2023-12-19 | Outpatient (CLI) | payer MEDICARE, SELFPAY ==
--- NOTE | 2023-12-19 08:09 | US_ITS ---
STUDY: SUPERFICIAL ULTRASOUND - RIGHT CHEST. REASON FOR EXAM: Male, 68 years old. CANCER OF RIGHT LONG LOWER LOBE . Assessment for thoracentesis. TECHNIQUE: A superficial ultrasound was performed with real-time and static billingsley-scale imaging. COMPARISON: None. FINDINGS: Not enough fluid for safe thoracentesis. US/Chest IMPRESSION: Not enough fluid for a safe thoracentesis. Electronically Signed: Enzo Collins MD at 9:56 EDT ,
== END | disposition home or self-care (01) ==
LOC: US 08:08
PROVIDERS: PCP Physician Assistant Medical; Referring Provider Internal Medicine Hematology & Oncology; Visit Provider Internal Medicine Hematology & Oncology
DX: C34.31 Malignant neoplasm of lower lobe, right bronchus or lung (principal); J91.0 Malignant pleural effusion
CPT/HCPCS: 76604

== ENCOUNTER → 2023-12-31 | Outpatient (CLI) | payer MEDICARE, SELFPAY ==
[2023-12-31 09:30] VITALS: BP 143/99; PULSE 83; RESP 18; O2SAT 96
[2023-12-31] MEDS: Lidocaine 2% (20 ml mdv) 20 ML Vial INFILT (09:40)
[2023-12-31 09:45] VITALS: BP 135/71; PULSE 89; RESP 18; O2SAT 95
--- NOTE | 2023-12-31 09:45 | RAD_ITS ---
STUDY: X-RAY CHEST REASON FOR EXAM: Male, 68 years old. Post thora TECHNIQUE: AP inspiration and expiration views. COMPARISON: Comparison is made with prior study dated December 02, 2023. FINDINGS: The patient is status post right thoracentesis. No evidence of pneumothorax. Residual pleural parenchymal changes as well as increased markings seen in the right hemithorax. RAD/Chest Insp/Exp 2 View IMPRESSION: No evidence of pneumothorax following the right thoracentesis. Electronically Signed: Enzo Collins MD at 10:08 EDT ,
[2023-12-31 10:12] VITALS: BP 142/79; PULSE 83; RESP 18; O2SAT 94
--- NOTE | 2023-12-31 15:09 | PCM.OP.PRO ---
Procedure Report Date of Procedure: 12/31/23 Assessment & Plan Assessment/Plan (1) Recurrent right pleural effusion: PLAN: PROCEDURE: Ultrasound Guided Thoracentesis ORDERING PROVIDER: Dr. Farooq INDICATION: Male, 68 years old. Right pleural effusion. PROVIDER: TAI Lanza PROCEDURE: The risks, benefits, and alternatives to the procedure were explained to the patient. The specific risks of bleeding, infection, and pneumothorax requiring chest tube insertion were discussed and accepted. Written informed consent was obtained. The patient was placed in the sitting, upright position. Ultrasonographic evaluation of the bilateral lower pleural spaces was carried out. An adequate pocket was identified in the right lower pleural space.The overlying skin was prepped and draped in sterile fashion. 2% lidocaine was administered subcutaneously for local anesthesia. Under ultrasound guidance, a 5-Pu[place] Rican thoracentesis needle/catheter system was advanced into the right posterior lower pleural fluid collection. 760 ml of light willie colored fluid was drained. The catheter was removed, and a sterile dressing was applied. The patient tolerated the procedure well. A chest x-ray was ordered. IMPRESSION: Successful ultrasound-guided thoracentesis of right pleural effusion. Procedures Radiology Radiology US Procedures: [id number] Thoracentesis
== END | disposition home or self-care (01) ==
LOC: US 08:48
PROVIDERS: PCP Physician Assistant Medical; Referring Provider Internal Medicine Hematology & Oncology; Visit Provider Internal Medicine Hematology & Oncology
DX: C34.31 Malignant neoplasm of lower lobe, right bronchus or lung (principal); J91.0 Malignant pleural effusion
CPT/HCPCS: 32555; 71046

== ENCOUNTER → 2024-01-12 | Outpatient (CLI) | payer MEDICARE, SELFPAY ==
[2024-01-12 12:28] VITALS: BP 132/75; PULSE 86; RESP 18; O2SAT 94
[2024-01-12] MEDS: Lidocaine 2% (20 ml mdv) 20 ML Vial INFILT (12:34)
--- NOTE | 2024-01-12 12:35 | RAD_ITS ---
STUDY: X-RAY CHEST REASON FOR EXAM: Male, 68 years old. Post thoracentesis TECHNIQUE: AP inspiration and expiration views. COMPARISON: Comparison is made with prior study December 31, 2023. FINDINGS: The patient is status post right thoracentesis. There is evidence of a small loculated pneumothorax involving the lateral and medial aspects of the right lung base. There is evidence of underlying scarring in the right lung. Residual blunting of the right costophrenic angle. RAD/Chest Insp/Exp 2 View IMPRESSION: Small loculated pneumothorax at the right lung base as described. The patient is asymptomatic. Persistent increased interstitial markings in the right hemithorax. Electronically Signed: Enzo Collins MD at 13:09 EDT ,
[2024-01-12 12:38] VITALS: BP 132/68; PULSE 86; RESP 18; O2SAT 96
[2024-01-12 12:45] VITALS: BP 122/77; PULSE 86; RESP 18; O2SAT 94
--- NOTE | 2024-01-12 13:14 | PCM.OP.PRO ---
Procedure Report Date of Procedure: 01/12/24 Assessment & Plan Assessment/Plan (1) Recurrent right pleural effusion: PLAN: PROCEDURE: Ultrasound Guided Thoracentesis ORDERING PROVIDER: Dr. Farooq INDICATION: Male, 68 years old. Recurrent right pleural effusion. PROVIDER: TAI Lanza PROCEDURE: The risks, benefits, and alternatives to the procedure were explained to the patient. The specific risks of bleeding, infection, and pneumothorax requiring chest tube insertion were discussed and accepted. Written informed consent was obtained. The patient was placed in the sitting, upright position. Ultrasonographic evaluation of the bilateral lower pleural spaces was carried out. An adequate pocket was identified in the right lower pleural space.The overlying skin was prepped and draped in sterile fashion. 2% lidocaine was administered subcutaneously for local anesthesia. Under ultrasound guidance, a 5-Stateless thoracentesis needle/catheter system was advanced into the right posterior lower pleural fluid collection. 350 ml of light yellow colored fluid was drained. The catheter was removed, and a sterile dressing was applied. The patient tolerated the procedure well. A chest x-ray was ordered. IMPRESSION: Successful ultrasound-guided right thoracentesis. Procedures Radiology Radiology US Procedures: [id number] Thoracentesis
== END | disposition home or self-care (01) ==
LOC: US 11:58
PROVIDERS: PCP Physician Assistant Medical; Referring Provider Internal Medicine Hematology & Oncology; Visit Provider Internal Medicine Hematology & Oncology
DX: J90 Pleural effusion, not elsewhere classified (principal)
CPT/HCPCS: 32555; 71046

== ENCOUNTER → 2024-01-29 | Outpatient (CLI) | payer MEDICARE, SELFPAY ==
[2024-01-29 08:09] VITALS: BP 112/69; PULSE 84; RESP 18; O2SAT 95
[2024-01-29] MEDS: Lidocaine 2% (20 ml mdv) 20 ML Vial INFILT (08:14)
[2024-01-29 08:24] VITALS: BP 116/62; PULSE 94; RESP 18; O2SAT 98
--- NOTE | 2024-01-29 08:25 | RAD_ITS ---
STUDY: X-RAY CHEST REASON FOR EXAM: Male, 68 years old. Post thora TECHNIQUE: Single AP portable view of the chest. COMPARISON: Comparison is made with prior study dated January 12, 2024. FINDINGS: The patient is status post right thoracentesis. There is no evidence of pneumothorax. RAD/Chest Insp/Exp 2 View IMPRESSION: No evidence of pneumothorax following right thoracentesis. Electronically Signed: Enzo Collins MD at 9:00 EDT ,
--- NOTE | 2024-01-29 08:29 | PCM.OP.PRO ---
Procedure Report Date of Procedure: 01/29/24 Assessment & Plan Assessment/Plan (1) Recurrent right pleural effusion: PLAN: PROCEDURE: Ultrasound Guided Thoracentesis ORDERING PROVIDER: Dr. Farooq INDICATION: Male, 68 years old. Recurrent right pleural effusion. PROVIDER: TAI Lanza PROCEDURE: The risks, benefits, and alternatives to the procedure were explained to the patient. The specific risks of bleeding, infection, and pneumothorax requiring chest tube insertion were discussed and accepted. Written informed consent was obtained. The patient was placed in the sitting, upright position. Ultrasonographic evaluation of the bilateral lower pleural spaces was carried out. An adequate pocket was identified in the right lower pleural space.The overlying skin was prepped and draped in sterile fashion. 2% lidocaine was administered subcutaneously for local anesthesia. Under ultrasound guidance, a 5-Dominican thoracentesis needle/catheter system was advanced into the right posterior lower pleural fluid collection. 1400 ml of clear yellow colored fluid was drained. The catheter was removed, and a sterile dressing was applied. The patient tolerated the procedure well. A chest x-ray was ordered. IMPRESSION: Successful ultrasound-guided thoracentesis of recurrent right pleural effusion. Procedures Radiology Radiology US Procedures: [id number] Thoracentesis
[2024-01-29 08:32] VITALS: PULSE 94; RESP 18; O2SAT 95
== END | disposition home or self-care (01) ==
LOC: US 07:50
PROVIDERS: PCP Physician Assistant Medical; Referring Provider Internal Medicine Hematology & Oncology; Visit Provider Internal Medicine Hematology & Oncology
DX: C34.31 Malignant neoplasm of lower lobe, right bronchus or lung (principal); J91.0 Malignant pleural effusion
CPT/HCPCS: 32555; 71046

== ENCOUNTER → 2024-02-23 | Outpatient (CLI) | payer MEDICARE, SELFPAY ==
--- NOTE | 2024-02-23 08:58 | US_ITS ---
STUDY: SUPERFICIAL ULTRASOUND - CHEST. REASON FOR EXAM: Male, 68 years old. LUNG CANCER, PLEURAL EFFUSION TECHNIQUE: A superficial ultrasound was performed with real-time and static billingsley-scale imaging. COMPARISON: None. FINDINGS: Imaging of the right pleural space was performed. A small pleural effusion. Not enough fluid for a safe thoracentesis. US/Chest IMPRESSION: Not enough fluid for a safe thoracentesis. Electronically Signed: Enzo Collins MD at 12:16 EDT ,
== END | disposition home or self-care (01) ==
LOC: US 08:55
PROVIDERS: PCP Physician Assistant Medical; Referring Provider Internal Medicine Hematology & Oncology; Visit Provider Internal Medicine Hematology & Oncology
DX: C34.31 Malignant neoplasm of lower lobe, right bronchus or lung (principal); J91.0 Malignant pleural effusion
CPT/HCPCS: 76604

== ENCOUNTER → 2024-03-12 | Outpatient (CLI) | payer MEDICARE, SELFPAY ==
[2024-03-12 12:17] VITALS: BP 125/81; PULSE 92; RESP 18; TEMP 36.9; O2SAT 94
[2024-03-12] MEDS: Lidocaine 2% (20 ml mdv) 20 ML Vial INFILT (12:21)
[2024-03-12 12:28] VITALS: BP 140/88; PULSE 99; RESP 18; O2SAT 94
--- NOTE | 2024-03-12 12:35 | RAD_ITS ---
STUDY: X-RAY CHEST REASON FOR EXAM: Male, 68 years old. Post thoracentesis TECHNIQUE: AP inspiration and expiration views. COMPARISON: Comparison is made with prior study January 29, 2024. FINDINGS: The patient is status post right thoracentesis. Diffuse increased interstitial markings in the right hemithorax. There is no evidence of pneumothorax. RAD/Chest Insp/Exp 2 View IMPRESSION: No evidence of pneumothorax on the immediate post right thoracentesis examination. Electronically Signed: Enzo Collins MD at 12:47 EDT ,
--- NOTE | 2024-03-12 12:40 | PCM.OP.PRO ---
Procedure Report Date of Procedure: 03/12/24 Assessment & Plan Assessment/Plan (1) Recurrent right pleural effusion: PLAN: PROCEDURE: Ultrasound Guided Thoracentesis ORDERING PROVIDER: Dr. Farooq INDICATION: Male, 68 years old. Recurrent right pleural effusion. PROVIDER: TAI Lanza PROCEDURE: The risks, benefits, and alternatives to the procedure were explained to the patient. The specific risks of bleeding, infection, and pneumothorax requiring chest tube insertion were discussed and accepted. Written informed consent was obtained. The patient was placed in the sitting, upright position. Ultrasonographic evaluation of the bilateral lower pleural spaces was carried out. An adequate pocket was identified in the right lower pleural space. The overlying skin was prepped with chlorhexidine and draped in sterile fashion. 2 % lidocaine was administered subcutaneously for local anesthesia. Under ultrasound guidance, a 5-Romanian thoracentesis needle/catheter system was advanced into the right posterior lower pleural fluid collection. 680 ml of clear yellow colored fluid was drained. The catheter was removed, and a sterile dressing was applied. The patient tolerated the procedure well. A chest x-ray was ordered. IMPRESSION: Successful ultrasound guided thoracentesis of right pleural effusion. Procedures Radiology Radiology US Procedures: [id number] Thoracentesis
== END | disposition home or self-care (01) ==
LOC: US 11:50
PROVIDERS: PCP Physician Assistant Medical; Referring Provider Internal Medicine Hematology & Oncology; Visit Provider Internal Medicine Hematology & Oncology
DX: C34.31 Malignant neoplasm of lower lobe, right bronchus or lung (principal); J91.0 Malignant pleural effusion
CPT/HCPCS: 32555; 71046

== ENCOUNTER 2024-04-06 07:57 | Outpatient (CLI) | payer MEDICARE, SELFPAY ==
--- NOTE | 2024-04-06 07:59 | US_ITS ---
STUDY: SUPERFICIAL ULTRASOUND - RIGHT THORAX REASON FOR EXAM: Male, 69 years old. 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 COMPARISON: None. FINDINGS: Not enough fluid for safe thoracentesis. US/Chest IMPRESSION: Not enough fluid for a safe thoracentesis. Electronically Signed: Enzo Collins MD at 14:14 EDT ,
[2024-04-06 08:26] VITALS: BP 118/62; PULSE 96; RESP 16; O2SAT 93
== END 2024-04-06 23:59 | disposition home or self-care (01) ==
LOC: US 07:57
PROVIDERS: PCP Physician Assistant Medical; Referring Provider Internal Medicine Hematology & Oncology; Visit Provider Internal Medicine Hematology & Oncology
DX: C34.31 Malignant neoplasm of lower lobe, right bronchus or lung (principal); J91.0 Malignant pleural effusion
CPT/HCPCS: 76604